=== PATIENT | male | born 1965 | race African-American/Black ===

== ENCOUNTER 2016-05-19 08:35 | Emergency (ER) | payer MEDICAID ==
[~2016-05-19] VITALS: Ht 185.4 cm; Wt 133.0 kg
[~2016-05-19 08:35] MED LIST: AMLO5TAB88 PO; ASPI-1035 PO; FURO40TA5 PO; Tramadol Hcl PO
[2016-05-19] MEDS ORDERED: MORPHINE SULFATE 10 MG/ML CPJ IM ONE (09:30)
[2016-05-19] MEDS ORDERED: ONDANSETRON 4MG ODT PO ONE (09:30)
[2016-05-19 09:52] LABS: CLARITY URINE CLEAR (CLEAR); COLOR URINE YELLOW (YELLOW); GLUCOSE URINE NEGATIVE (NEGATIVE); KETONES URINE NEGATIVE (NEGATIVE); LEUKOCYTE ESTERASE URINE NEGATIVE (NEGATIVE); NITRITE URINE NEGATIVE (NEGATIVE); OCCULT BLOOD URINE NEGATIVE (NEGATIVE); PROTEIN URINE NEGATIVE (NEGATIVE); SPECIFIC GRAVITY URINE 1.009 (1.005-1.030)
[2016-05-19 10:04] LABS: BASOPHILS % 1.1 % (0.0-2.0); EOSINOPHILS % 2.7 % (0.0-5.0); HEMATOCRIT. 42.6 % (42.0-52.0); HEMOGLOBIN. 13.2 g/dL (14.0-18.0); LYMPHOCYTES % 9.9 % (20.0-50.0); MEAN CORPUSCULAR HGB CONC 31.1 g/dL (31.0-37.0); MEAN CORPUSCULAR VOLUME 83.5 fL (80.0-94.0); MEAN PLATELET VOLUME 7.9 fl (7.4-10.4); MONOCYTES % 11.1 % (2.0-8.0); NEUTROPHILS % 75.2 % (40.0-76.0); PLATELET 283 x1000/uL (130-400); RED CELL DISTRIBUTION WIDTH 20.9 % (11.6-14.6); WHITE BLOOD COUNT 11.3 x1000/uL (4.5-11.0)
[2016-05-19 10:10] LABS: CHLORIDE 101 mEq/L (98-107); INDEX HEMOLYSI 1 (1-3); INDEX ICTERIC 1 (1-4); INDEX LIPEMIC 1 (1-3)
[2016-05-19 10:12] LABS: INR 1.3; PROTHROMBIN TIME 13.4 sec
[2016-05-19 10:18] LABS: ALANINE AMINOTRANSFERASE 37 IU/L (13-61); ALBUMIN 2.9 g/dL (3.4-5.0); ANION GAP 15; CALCIUM 8.6 mg/dL (8.5-10.1); CARBON DIOXIDE 25 mEq/L (21-32); LIPASE 267 IU/L (73-393); UREA NITROGEN BLOOD 39 mg/dL (7-21); eGFR 48 mL/min (>60)
[2016-05-19 10:44] LABS: AMYLASE 83 IU/L (25-115); INDEX HEMOLYSI 2 (1-3)
[2016-05-19] MEDS ORDERED: KETOROLAC 30MG/ML VIAL IM ONE (11:30)
[2016-05-19 12:29] VITALS: BP 117/74
[2016-05-23] MEDS ORDERED: AMIO100T4 PO (07:19)
[2016-05-23] MEDS ORDERED: ATOR20TA65 PO (07:20)
[2016-05-23] MEDS ORDERED: LISI-186 PO (07:20)
== END 2016-05-19 13:18 | disposition home or self-care (01) ==
LOC: ER 08:58
DX: R10.11 Right upper quadrant pain (principal); I50.9 Heart failure, unspecified; J44.9 Chronic obstructive pulmonary disease, unspecified; I10 Essential (primary) hypertension
CPT/HCPCS: 36415; 76705; 80053; 81003; 82150; 83690; 85025; 85610; 93005; 96372; 99285; J1885; J2270; Q0162

== ENCOUNTER 2016-06-03 23:24 | Emergency (ER) | payer MEDICAID ==
[~2016-06-03] VITALS: Ht 188 cm; Wt 127.0 kg
[~2016-06-03 23:24] MED LIST changes: +AMIO100T4 PO; +ATOR20TA65 PO; +LISI-186 PO
[2016-06-04] MEDS ORDERED: KETOROLAC 30MG/ML VIAL IV STA (01:32)
[2016-06-04 01:59] LABS: BASOPHILS % 1.4 % (0.0-2.0); EOSINOPHILS % 2.6 % (0.0-5.0); HEMATOCRIT. 42.5 % (42.0-52.0); HEMOGLOBIN. 13.5 g/dL (14.0-18.0); LYMPHOCYTES % 8.8 % (20.0-50.0); MEAN CORPUSCULAR HEMOGLOBIN 25.7 pg (28.0-32.0); MEAN CORPUSCULAR HGB CONC 31.9 g/dL (31.0-37.0); MEAN CORPUSCULAR VOLUME 80.6 fL (80.0-94.0); MEAN PLATELET VOLUME 7.5 fl (7.4-10.4); MONOCYTES % 12.7 % (2.0-8.0); NEUTROPHILS % 74.5 % (40.0-76.0); PLATELET 251 x1000/uL (130-400); RED BLOOD CELL COUNT 5.27 mill/uL (4.7-6.1); RED CELL DISTRIBUTION WIDTH 20.3 % (11.6-14.6); WHITE BLOOD COUNT 10.8 x1000/uL (4.5-11.0)
[2016-06-04 02:15] LABS: ALANINE AMINOTRANSFERASE 32 IU/L (13-61); ALBUMIN 3.2 g/dL (3.4-5.0); ANION GAP 13; CALCIUM 8.5 mg/dL (8.5-10.1); CARBON DIOXIDE 25 mEq/L (21-32); CHLORIDE 102 mEq/L (98-107); INDEX HEMOLYSI 1 (1-3); INDEX ICTERIC 1 (1-4); INDEX LIPEMIC 1 (1-3); NT PRO B-TYPE NATRIURETIC PEP 5113 pg/mL (5-125); TROPONIN I 0.14 ng/mL (0.00-0.04); UREA NITROGEN BLOOD 28 mg/dL (7-21); eGFR 45 mL/min (>60)
[2016-06-04] MEDS ORDERED: MORPHINE SULFATE 4 MG/ML CPJ (NOT FOR IM USE) IV ONE (02:30)
[2016-06-04 02:41] VITALS: BP 158/85
== END 2016-06-04 05:46 | disposition home or self-care (01) ==
LOC: ER 23:25
DX: M54.5 Low back pain (principal); G89.29 Other chronic pain; R07.9 Chest pain, unspecified; R06.02 Shortness of breath; J44.9 Chronic obstructive pulmonary disease, unspecified; I10 Essential (primary) hypertension; I50.9 Heart failure, unspecified; F17.200 Nicotine dependence, unspecified, uncomplicated; Z79.82 Long term (current) use of aspirin
CPT/HCPCS: 36415; 71010; 80053; 83880; 84484; 85025; 93005; 96374; 96375; 99285; J1885; J2270; Z7610

== ENCOUNTER 2016-08-08 03:27 | Inpatient (IN) | payer MEDICAID ==
[~2016-08-08] VITALS: Ht 180.3 cm; Wt 124.3 kg
[~2016-08-08 03:27] MED LIST changes: -ASPI-1035 PO; +ASPI-1159 PO
[2016-08-08] MEDS ORDERED: ALBUTEROL (0.083%) 2.5MG/3ML NEB HHN STA (04:24)
[2016-08-08] MEDS ORDERED: NITROGLYCERIN OINT 1GM/INCH UDPKT TD ONE (04:30)
[2016-08-08] MEDS ORDERED: FUROSEMIDE 40MG/4ML VIAL IV ONE (04:30)
[2016-08-08 04:52] LABS: BASOPHILS % 1.5 % (0.0-2.0); EOSINOPHILS % 1.9 % (0.0-5.0); HEMATOCRIT. 42.2 % (42.0-52.0); HEMOGLOBIN. 13.6 g/dL (14.0-18.0); LYMPHOCYTES % 9.1 % (20.0-50.0); MEAN CORPUSCULAR HEMOGLOBIN 25.4 pg (28.0-32.0); MEAN CORPUSCULAR VOLUME 78.8 fL (80.0-94.0); NEUTROPHILS % 75.5 % (40.0-76.0); PLATELET 286 x1000/uL (130-400); RED BLOOD CELL COUNT 5.35 mill/uL (4.7-6.1); RED CELL DISTRIBUTION WIDTH 19.4 % (11.6-14.6)
[2016-08-08 05:04] LABS: CARBON DIOXIDE 24 mEq/L (21-32); CHLORIDE 99 mEq/L (98-107); TROPONIN I 0.15 ng/mL (0.00-0.04)
[2016-08-08] MEDS ORDERED: LORAZEPAM 2MG/ML CPJ IV ONE (05:15)
[2016-08-08] MEDS ORDERED: PROPOFOL 10MG/ML 100ML 100 ML IV ONE (07:00)
[2016-08-08] MEDS ORDERED: SUCCINYLCHOLINE CHLORIDE 200MG/10ML VIAL IV ONE ×2 (07:00→10:03)
[2016-08-08 07:37] LABS: BG BASE EXCESS -3.8 mmol/L (-2.0-2.0); BG CARBOXYHEMOGLOBIN 1.5 % (0.5-1.5); BG DEOXYHEMOGLOBIN 3.1 % (0.0-5.0); BG FRACTION INSPIRED OXYGEN 75; BG HCO3 ACT 23.6 mmol/L (22.0-26.0); BG METHEMOGLOBIN 0.7 % (0.0-1.5); BG OXYGEN SATURATION 96.8 % (92.0-98.5); BG OXYHEMOGLOBIN 94.7 % (94.0-97.0); BG PCO2 52.3 mmHg (35.0-45.0); BG PH 7.273 (7.350-7.450); BG PO2 118.8 mmHg (75.0-100.0); BG SAMPLE SITE RIGHT BRACHIAL; BG TIDAL VOLUME(mL) 550 mL; BG TOTAL HEMOGLOBIN 14.8 g/dL (12.0-18.0); BG VENT MODE VENT - A/C; BG VENT RATE 12 set
[2016-08-08] MEDS: LEVOFLOXACIN 500MG PREMIX 100 ML IV ONE ×2 (08:07→08:30)
[2016-08-08] MEDS: PANTOPRAZOLE SODIUM 40 MG/VIAL IV SCH (09:47)
[2016-08-08] MEDS: DIPHENHYDRAMINE 50MG/ML VIAL IV PRN ×2 (09:48→15:43)
[2016-08-08] MEDS: PROPOFOL 10MG/ML 100ML 100 ML IV PRN ×3 (09:49→20:42)
[2016-08-08] MEDS ORDERED: IPRATROPIUM/ALBUTEROL 0.5-3(2.5)MG/3ML NEB HHN PRN (10:00)
[2016-08-08] MEDS ORDERED: ETOMIDATE 2MG/ML 10ML VIAL IV ONE (10:03)
[2016-08-08] MEDS ORDERED: STERILE WATER FOR INJECTION 10ML VIAL ONE (10:03)
[2016-08-08] MEDS ORDERED: VECURONIUM BROMIDE 10 MG/VIAL IV ONE (10:03)
[2016-08-08] MEDS: LORAZEPAM 2MG/ML CPJ IV PRN ×2 (10:12→15:44)
[2016-08-08] MEDS ORDERED: MORPHINE SULFATE 2 MG/ML CPJ (NOT FOR IM USE) IV PRN (10:30)
[2016-08-08] MEDS: IPRATROPIUM/ALBUTEROL 0.5-3(2.5)MG/3ML NEB HHN SCH ×2 (10:56→19:50)
[2016-08-08 11:42] LABS: CLARITY URINE CLEAR (CLEAR); COLOR URINE DARK YELLOW (YELLOW); KETONES URINE NEGATIVE (NEGATIVE); LEUKOCYTE ESTERASE URINE NEGATIVE (NEGATIVE); NITRITE URINE NEGATIVE (NEGATIVE); OCCULT BLOOD URINE 2+ (NEGATIVE); PROTEIN URINE TRACE (NEGATIVE); SPECIFIC GRAVITY URINE 1.015 (1.005-1.030)
[2016-08-08] MEDS ORDERED: VANCOMYCIN 2,000 MG in DEXT 5% WATER 500 ML IV NR (12:00)
[2016-08-08 12:02] LABS: *AMPHETAMINES SCREEN URINE NEGATIVE (NEGATIVE); *BARBITURATES SCREEN URINE NEGATIVE (NEGATIVE); *BENZODIAZEPINES SCREEN URINE NEGATIVE (NEGATIVE); *COCAINE SCREEN URINE PRESUMTIVE POSITIVE (NEGATIVE); CANNABINOID URINE SCREEN PRESUMTIVE POSITIVE (NEGATIVE); METHADONE URINE SCREEN NEGATIVE (NEGATIVE); OPIATES URINE SCREEN NEGATIVE (NEGATIVE); PHENCYCLIDINE URINE SCREEN NEGATIVE (NEGATIVE)
[2016-08-08] MEDS: ENOXAPARIN 30MG/0.3ML SYR SUBCUT SCH ×2 (12:35→21:08)
[2016-08-08] MEDS: PIPERACILLIN/TAZ 3.375G PREMIX 50 ML IV SCH ×2 (13:16→21:53)
[2016-08-09] MEDS: PROPOFOL 10MG/ML 100ML 100 ML IV PRN ×7 (00:27→21:39)
[2016-08-09] MEDS: IPRATROPIUM/ALBUTEROL 0.5-3(2.5)MG/3ML NEB HHN SCH ×4 (01:45→20:12)
[2016-08-09 05:25] LABS: HEMATOCRIT. 40.4 % (42.0-52.0); HEMOGLOBIN. 12.9 g/dL (14.0-18.0); MEAN CORPUSCULAR VOLUME 78.5 fL (80.0-94.0); MEAN PLATELET VOLUME 7.9 fl (7.4-10.4); PLATELET 274 x1000/uL (130-400); RED BLOOD CELL COUNT 5.15 mill/uL (4.7-6.1); RED CELL DISTRIBUTION WIDTH 19.3 % (11.6-14.6)
[2016-08-09 05:30] LABS: INR 1.4; PARTIAL THROMBOPLASTIN TIME 30.5 sec (24.0-34.0); PROTHROMBIN TIME 14.6 sec
[2016-08-09] MEDS: PIPERACILLIN/TAZ 3.375G PREMIX 50 ML IV SCH ×3 (06:50→21:00)
[2016-08-09 07:23] LABS: BG BASE EXCESS 1.4 mmol/L (-2.0-2.0); BG CARBOXYHEMOGLOBIN 0.6 % (0.5-1.5); BG DEOXYHEMOGLOBIN 1.6 % (0.0-5.0); BG FRACTION INSPIRED OXYGEN 50; BG HCO3 ACT 25.1 mmol/L (22.0-26.0); BG METHEMOGLOBIN 0.3 % (0.0-1.5); BG OXYGEN SATURATION 98.4 % (92.0-98.5); BG OXYHEMOGLOBIN 97.5 % (94.0-97.0); BG PCO2 36.9 mmHg (35.0-45.0); BG PH 7.451 (7.350-7.450); BG PO2 137.4 mmHg (75.0-100.0); BG SAMPLE SITE RIGHT RADIAL; BG TIDAL VOLUME(mL) 550 mL; BG VENT MODE VENT - A/C; BG VENT RATE 14 set
[2016-08-09 07:44] LABS: PLATELET ESTIMATE NORMAL
[2016-08-09] MEDS: FUROSEMIDE 40MG/4ML VIAL IVP SCH (08:44)
[2016-08-09] MEDS: PANTOPRAZOLE SODIUM 40 MG/VIAL IV SCH (08:44)
[2016-08-09] MEDS: ENOXAPARIN 30MG/0.3ML SYR SUBCUT SCH ×2 (08:45→21:00)
[2016-08-09] MEDS ORDERED: VANCOMYCIN 1250MG in DEXTROSE 5% WATER 250ML IV SCH (10:00)
[2016-08-09] MEDS: CHLORDIAZEPOXIDE 25MG CAPSULE NG SCH ×2 (12:55→21:00)
[2016-08-09] MEDS: BUDESONIDE 0.5MG/2ML NEB HHN SCH ×2 (15:18→20:12)
[2016-08-09 15:42] LABS: CREATINE KINASE MB FRACTION 1.9 ng/mL (0.5-3.6); TROPONIN I 0.09 ng/mL (0.00-0.04)
[2016-08-09 15:48] LABS: T4 FREE 0.9 ng/dL (0.76-1.46)
[2016-08-09 23:38] LABS: CREATINE KINASE MB FRACTION 1.6 ng/mL (0.5-3.6); TROPONIN I 0.08 ng/mL (0.00-0.04)
[2016-08-09] MEDS: VANCOMYCIN 1250MG in DEXTROSE 5% WATER 250ML IV SCH (23:45)
[2016-08-10] MEDS: PROPOFOL 10MG/ML 100ML 100 ML IV PRN ×5 (00:32→21:08)
[2016-08-10] MEDS: IPRATROPIUM/ALBUTEROL 0.5-3(2.5)MG/3ML NEB HHN SCH ×4 (02:29→19:57)
[2016-08-10 05:27] LABS: HEMATOCRIT. 41.6 % (42.0-52.0); MEAN CORPUSCULAR HEMOGLOBIN 24.8 pg (28.0-32.0); MEAN PLATELET VOLUME 8.7 fl (7.4-10.4); PLATELET 226 x1000/uL (130-400); RED BLOOD CELL COUNT 5.27 mill/uL (4.7-6.1)
[2016-08-10] MEDS: CHLORDIAZEPOXIDE 25MG CAPSULE NG SCH ×3 (05:30→21:10)
[2016-08-10] MEDS: PIPERACILLIN/TAZ 3.375G PREMIX 50 ML IV SCH ×3 (05:31→17:59)
[2016-08-10 05:48] LABS: CREATINE KINASE MB FRACTION 1.5 ng/mL (0.5-3.6); TROPONIN I 0.08 ng/mL (0.00-0.04)
[2016-08-10 07:12] LABS: PLATELET ESTIMATE NORMAL
[2016-08-10] MEDS: BUDESONIDE 0.5MG/2ML NEB HHN SCH ×3 (08:37→19:57)
[2016-08-10] MEDS: PANTOPRAZOLE SODIUM 40 MG/VIAL IV SCH (09:56)
[2016-08-10] MEDS: RISPERIDONE 1MG TABLET PO SCH ×2 (09:56→21:10)
[2016-08-10] MEDS: ENOXAPARIN 30MG/0.3ML SYR SUBCUT SCH ×2 (09:56→21:13)
[2016-08-10] MEDS: FUROSEMIDE 40MG/4ML VIAL IVP SCH (09:56)
[2016-08-10] MEDS: VANCOMYCIN 1250MG in DEXTROSE 5% WATER 250ML IV SCH (09:57)
[2016-08-10] MEDS: LORAZEPAM 2MG/ML CPJ IV PRN (10:11)
[2016-08-10 12:44] LABS: BG CARBOXYHEMOGLOBIN 0.9 % (0.5-1.5); BG DEOXYHEMOGLOBIN 2.6 % (0.0-5.0); BG FRACTION INSPIRED OXYGEN 40; BG HCO3 ACT 28.2 mmol/L (22.0-26.0); BG METHEMOGLOBIN 0.3 % (0.0-1.5); BG OXYGEN SATURATION 97.4 % (92.0-98.5); BG OXYHEMOGLOBIN 96.2 % (94.0-97.0); BG PO2 97.7 mmHg (75.0-100.0); BG SAMPLE SITE LEFT RADIAL; BG TIDAL VOLUME(mL) 550 mL; BG TOTAL HEMOGLOBIN 13.9 g/dL (12.0-18.0); BG VENT MODE VENT - A/C; BG VENT RATE 14 set
[2016-08-11] MEDS: PIPERACILLIN/TAZ 3.375G PREMIX 50 ML IV SCH ×4 (00:16→18:36)
[2016-08-11] MEDS: PROPOFOL 10MG/ML 100ML 100 ML IV PRN ×4 (01:28→19:00)
[2016-08-11] MEDS: IPRATROPIUM/ALBUTEROL 0.5-3(2.5)MG/3ML NEB HHN SCH ×5 (02:24→20:09)
[2016-08-11] MEDS: VANCOMYCIN 1250MG in DEXTROSE 5% WATER 250ML IV SCH ×2 (04:34→21:51)
[2016-08-11] MEDS: CHLORDIAZEPOXIDE 25MG CAPSULE NG SCH ×3 (05:44→23:03)
[2016-08-11] MEDS: BUDESONIDE 0.5MG/2ML NEB HHN SCH ×2 (07:48→20:09)
[2016-08-11 08:30] LABS: BASOPHILS % 0.7 % (0.0-2.0); EOSINOPHILS % 0.9 % (0.0-5.0); HEMATOCRIT. 40.7 % (42.0-52.0); HEMOGLOBIN. 12.6 g/dL (14.0-18.0); LYMPHOCYTES % 7.1 % (20.0-50.0); MEAN CORPUSCULAR HEMOGLOBIN 24.4 pg (28.0-32.0); MEAN CORPUSCULAR VOLUME 78.9 fL (80.0-94.0); MEAN PLATELET VOLUME 8.3 fl (7.4-10.4); MONOCYTES % 9.1 % (2.0-8.0); NEUTROPHILS % 82.2 % (40.0-76.0); PLATELET 291 x1000/uL (130-400); RED BLOOD CELL COUNT 5.16 mill/uL (4.7-6.1); RED CELL DISTRIBUTION WIDTH 20.6 % (11.6-14.6)
[2016-08-11] MEDS: PANTOPRAZOLE SODIUM 40 MG/VIAL IV SCH (08:32)
[2016-08-11] MEDS: FUROSEMIDE 40MG/4ML VIAL IVP SCH (08:32)
[2016-08-11] MEDS: DIPHENHYDRAMINE 50MG/ML VIAL IV PRN ×2 (08:32→18:36)
[2016-08-11] MEDS: RISPERIDONE 1MG TABLET PO SCH (08:33)
[2016-08-11] MEDS: ENOXAPARIN 30MG/0.3ML SYR SUBCUT SCH ×2 (08:35→20:02)
[2016-08-11] MEDS: AMIODARONE HCL 200 MG TABLET PO SCH (10:22)
[2016-08-11] MEDS: QUETIAPINE FUMARATE 50MG TABLET PO SCH ×2 (13:06→20:00)
[2016-08-11] MEDS: LORAZEPAM 2MG/ML CPJ IV PRN (18:36)
[2016-08-12] MEDS: PIPERACILLIN/TAZ 3.375G PREMIX 50 ML IV SCH ×4 (00:25→17:01)
[2016-08-12] MEDS: IPRATROPIUM/ALBUTEROL 0.5-3(2.5)MG/3ML NEB HHN SCH ×4 (01:57→20:50)
[2016-08-12] MEDS: PROPOFOL 10MG/ML 100ML 100 ML IV PRN (02:14)
[2016-08-12] MEDS: CHLORDIAZEPOXIDE 25MG CAPSULE NG SCH ×3 (06:15→21:16)
[2016-08-12] MEDS ORDERED: LACTULOSE 20G/30ML UDC PO NR (07:45)
[2016-08-12] MEDS ORDERED: LACTULOSE 20G/30ML UDC PO PRN (07:45)
[2016-08-12] MEDS ORDERED: LORAZEPAM 2MG/ML CPJ IV PRN (07:45)
[2016-08-12 08:05] LABS: PHOSPHORUS 4.1 mg/dL (2.5-4.9)
[2016-08-12] MEDS: BUDESONIDE 0.5MG/2ML NEB HHN SCH (08:15)
[2016-08-12] MEDS: FUROSEMIDE 40MG/4ML VIAL IVP SCH (08:16)
[2016-08-12] MEDS: PANTOPRAZOLE SODIUM 40 MG/VIAL IV SCH (08:23)
[2016-08-12] MEDS: ENOXAPARIN 30MG/0.3ML SYR SUBCUT SCH ×2 (08:23→21:16)
[2016-08-12] MEDS: QUETIAPINE FUMARATE 50MG TABLET PO SCH ×2 (08:23→21:16)
[2016-08-12] MEDS: AMIODARONE HCL 200 MG TABLET PO SCH (08:23)
[2016-08-12] MEDS: VANCOMYCIN 1250MG in DEXTROSE 5% WATER 250ML IV SCH (15:04)
[2016-08-12] MEDS ORDERED: PROPOFOL 10MG/ML 100ML 100 ML IV PRN (18:50)
[2016-08-13] MEDS: PIPERACILLIN/TAZ 3.375G PREMIX 50 ML IV SCH ×4 (00:29→17:27)
[2016-08-13] MEDS: IPRATROPIUM/ALBUTEROL 0.5-3(2.5)MG/3ML NEB HHN SCH ×4 (02:11→19:45)
[2016-08-13 05:19] LABS: HEMATOCRIT. 41.8 % (42.0-52.0); HEMOGLOBIN. 13.3 g/dL (14.0-18.0); MEAN CORPUSCULAR VOLUME 78.8 fL (80.0-94.0); MEAN PLATELET VOLUME 8.1 fl (7.4-10.4); PLATELET 303 x1000/uL (130-400); RED CELL DISTRIBUTION WIDTH 19.8 % (11.6-14.6)
[2016-08-13] MEDS: CHLORDIAZEPOXIDE 25MG CAPSULE NG SCH ×3 (06:08→21:12)
[2016-08-13 06:43] LABS: PLATELET ESTIMATE NORMAL
[2016-08-13] MEDS: PANTOPRAZOLE SODIUM 40 MG/VIAL IV SCH (09:19)
[2016-08-13] MEDS: FUROSEMIDE 40MG/4ML VIAL IVP SCH (09:19)
[2016-08-13] MEDS: ENOXAPARIN 30MG/0.3ML SYR SUBCUT SCH ×2 (09:19→21:13)
[2016-08-13] MEDS: QUETIAPINE FUMARATE 50MG TABLET PO SCH ×2 (09:19→21:12)
[2016-08-13] MEDS: AMIODARONE HCL 200 MG TABLET PO SCH (09:19)
[2016-08-13] MEDS: VANCOMYCIN 1250MG in DEXTROSE 5% WATER 250ML IV SCH (09:33)
[2016-08-13] MEDS: MIDAZOLAM HCL 50 MG in DEXTROSE 5% WATER 40 ML IV PRN ×2 (09:46→17:26)
[2016-08-13] MEDS: FENTANYL CITRATE/PF 500 MCG in SODIUM CHLORIDE 0.9% 40 ML IV PRN ×2 (09:51→22:34)
[2016-08-14] MEDS: PIPERACILLIN/TAZ 3.375G PREMIX 50 ML IV SCH ×4 (00:04→17:57)
[2016-08-14] MEDS: IPRATROPIUM/ALBUTEROL 0.5-3(2.5)MG/3ML NEB HHN SCH ×4 (01:53→19:48)
[2016-08-14] MEDS: VANCOMYCIN 1250MG in DEXTROSE 5% WATER 250ML IV SCH ×2 (03:40→21:40)
[2016-08-14] MEDS: MIDAZOLAM HCL 50 MG in DEXTROSE 5% WATER 40 ML IV PRN ×2 (03:40→23:07)
[2016-08-14 04:22] LABS: HEMATOCRIT. 41.3 % (42.0-52.0); HEMOGLOBIN. 12.7 g/dL (14.0-18.0); MEAN CORPUSCULAR HEMOGLOBIN 24.7 pg (28.0-32.0); MEAN CORPUSCULAR VOLUME 80.1 fL (80.0-94.0); MEAN PLATELET VOLUME 7.6 fl (7.4-10.4); PLATELET 275 x1000/uL (130-400); RED BLOOD CELL COUNT 5.15 mill/uL (4.7-6.1); RED CELL DISTRIBUTION WIDTH 20.2 % (11.6-14.6)
[2016-08-14 04:37] LABS: CARBON DIOXIDE 33 mEq/L (21-32); CHLORIDE 107 mEq/L (98-107)
[2016-08-14] MEDS: CHLORDIAZEPOXIDE 25MG CAPSULE NG SCH ×3 (05:25→21:40)
[2016-08-14 07:30] LABS: BG CARBOXYHEMOGLOBIN 2.2 % (0.5-1.5); BG DEOXYHEMOGLOBIN 1.8 % (0.0-5.0); BG FRACTION INSPIRED OXYGEN 40; BG HCO3 ACT 32.1 mmol/L (22.0-26.0); BG METHEMOGLOBIN 0.5 % (0.0-1.5); BG OXYGEN SATURATION 98.2 % (92.0-98.5); BG OXYHEMOGLOBIN 95.5 % (94.0-97.0); BG PH 7.452 (7.350-7.450); BG PO2 125.9 mmHg (75.0-100.0); BG SAMPLE SITE RIGHT RADIAL; BG TIDAL VOLUME(mL) 550 mL; BG TOTAL HEMOGLOBIN 14.4 g/dL (12.0-18.0); BG VENT MODE VENT - A/C; BG VENT RATE 12 set
[2016-08-14 07:30] LABS: PLATELET ESTIMATE NORMAL
[2016-08-14] MEDS: AMIODARONE HCL 200 MG TABLET PO SCH (08:35)
[2016-08-14] MEDS: QUETIAPINE FUMARATE 50MG TABLET PO SCH ×2 (08:36→21:40)
[2016-08-14] MEDS: ENOXAPARIN 30MG/0.3ML SYR SUBCUT SCH ×2 (08:36→21:39)
[2016-08-14] MEDS: PANTOPRAZOLE SODIUM 40 MG/VIAL IV SCH (08:36)
[2016-08-14] MEDS: FUROSEMIDE 40MG/4ML VIAL IVP SCH (08:36)
[2016-08-14] MEDS: ACETAMINOPHEN 325MG TABLET PO PRN (12:27)
[2016-08-14] MEDS: FENTANYL CITRATE/PF 500 MCG in SODIUM CHLORIDE 0.9% 40 ML IV PRN (14:16)
[2016-08-15] MEDS: PIPERACILLIN/TAZ 3.375G PREMIX 50 ML IV SCH ×4 (00:15→17:57)
[2016-08-15] MEDS: IPRATROPIUM/ALBUTEROL 0.5-3(2.5)MG/3ML NEB HHN SCH ×4 (01:53→21:04)
[2016-08-15] MEDS: FENTANYL CITRATE/PF 500 MCG in SODIUM CHLORIDE 0.9% 40 ML IV PRN ×2 (03:18→14:30)
[2016-08-15 04:55] LABS: BASOPHILS % 0.9 % (0.0-2.0); EOSINOPHILS % 5.2 % (0.0-5.0); HEMATOCRIT. 40.4 % (42.0-52.0); HEMOGLOBIN. 12.6 g/dL (14.0-18.0); LYMPHOCYTES % 7.6 % (20.0-50.0); MEAN CORPUSCULAR HEMOGLOBIN 24.9 pg (28.0-32.0); MEAN CORPUSCULAR VOLUME 79.5 fL (80.0-94.0); MEAN PLATELET VOLUME 7.7 fl (7.4-10.4); MONOCYTES % 10.1 % (2.0-8.0); NEUTROPHILS % 76.2 % (40.0-76.0); PLATELET 272 x1000/uL (130-400); RED BLOOD CELL COUNT 5.09 mill/uL (4.7-6.1); RED CELL DISTRIBUTION WIDTH 20.3 % (11.6-14.6)
[2016-08-15 05:24] LABS: CARBON DIOXIDE 33 mEq/L (21-32); CHLORIDE 108 mEq/L (98-107)
[2016-08-15] MEDS: CHLORDIAZEPOXIDE 25MG CAPSULE NG SCH ×3 (05:59→21:22)
[2016-08-15 07:23] LABS: BG BASE EXCESS 6.6 mmol/L (-2.0-2.0); BG CARBOXYHEMOGLOBIN 2.3 % (0.5-1.5); BG DEOXYHEMOGLOBIN 2.8 % (0.0-5.0); BG HCO3 ACT 31.9 mmol/L (22.0-26.0); BG METHEMOGLOBIN 0.5 % (0.0-1.5); BG OXYGEN SATURATION 97.1 % (92.0-98.5); BG OXYHEMOGLOBIN 94.4 % (94.0-97.0); BG PCO2 48.3 mmHg (35.0-45.0); BG PH 7.438 (7.350-7.450); BG PO2 98.8 mmHg (75.0-100.0); BG SAMPLE SITE RIGHT RADIAL; BG TIDAL VOLUME(mL) 550 mL; BG TOTAL HEMOGLOBIN 14.3 g/dL (12.0-18.0); BG VENT MODE VENT - A/C; BG VENT RATE 10 set
[2016-08-15] MEDS: QUETIAPINE FUMARATE 50MG TABLET PO SCH ×2 (08:20→21:22)
[2016-08-15] MEDS: AMIODARONE HCL 200 MG TABLET PO SCH (08:20)
[2016-08-15] MEDS: FUROSEMIDE 40MG/4ML VIAL IVP SCH (08:20)
[2016-08-15] MEDS: PANTOPRAZOLE SODIUM 40 MG/VIAL IV SCH (08:20)
[2016-08-15] MEDS: ENOXAPARIN 30MG/0.3ML SYR SUBCUT SCH ×2 (08:21→21:21)
[2016-08-15] MEDS: ACETAMINOPHEN 325MG TABLET PO PRN (12:03)
[2016-08-15] MEDS: LORAZEPAM 2MG/ML CPJ IV PRN (16:12)
[2016-08-15] MEDS ORDERED: VANCOMYCIN 1500MG in DEXTROSE 5% WATER 250ML IV SCH (21:00)
[2016-08-16] MEDS: FENTANYL CITRATE/PF 500 MCG in SODIUM CHLORIDE 0.9% 40 ML IV PRN ×3 (00:20→20:27)
[2016-08-16] MEDS: PIPERACILLIN/TAZ 3.375G PREMIX 50 ML IV SCH ×4 (00:21→22:43)
[2016-08-16] MEDS: IPRATROPIUM/ALBUTEROL 0.5-3(2.5)MG/3ML NEB HHN SCH ×4 (02:07→20:51)
[2016-08-16 05:06] LABS: BASOPHILS % 0.8 % (0.0-2.0); EOSINOPHILS % 5.3 % (0.0-5.0); HEMATOCRIT. 40.7 % (42.0-52.0); HEMOGLOBIN. 12.7 g/dL (14.0-18.0); LYMPHOCYTES % 9.7 % (20.0-50.0); MEAN CORPUSCULAR HEMOGLOBIN 25.1 pg (28.0-32.0); MEAN CORPUSCULAR VOLUME 80.3 fL (80.0-94.0); MEAN PLATELET VOLUME 7.9 fl (7.4-10.4); MONOCYTES % 10.1 % (2.0-8.0); NEUTROPHILS % 74.1 % (40.0-76.0); PLATELET 271 x1000/uL (130-400); RED BLOOD CELL COUNT 5.07 mill/uL (4.7-6.1); RED CELL DISTRIBUTION WIDTH 20.1 % (11.6-14.6)
[2016-08-16 05:16] LABS: CARBON DIOXIDE 34 mEq/L (21-32); CHLORIDE 108 mEq/L (98-107); PHOSPHORUS 3.9 mg/dL (2.5-4.9)
[2016-08-16] MEDS: CHLORDIAZEPOXIDE 25MG CAPSULE NG SCH ×3 (05:30→22:43)
[2016-08-16] MEDS: LORAZEPAM 2MG/ML CPJ IV PRN ×2 (07:31→16:33)
[2016-08-16 08:01] LABS: BG CARBOXYHEMOGLOBIN 1.8 % (0.5-1.5); BG DEOXYHEMOGLOBIN 1.8 % (0.0-5.0); BG FRACTION INSPIRED OXYGEN 40; BG HCO3 ACT 35.1 mmol/L (22.0-26.0); BG METHEMOGLOBIN 0.5 % (0.0-1.5); BG OXYGEN SATURATION 98.2 % (92.0-98.5); BG OXYHEMOGLOBIN 95.9 % (94.0-97.0); BG PCO2 48.8 mmHg (35.0-45.0); BG PH 7.475 (7.350-7.450); BG PO2 123.3 mmHg (75.0-100.0); BG SAMPLE SITE RIGHT RADIAL; BG TIDAL VOLUME(mL) 550 mL; BG TOTAL HEMOGLOBIN 14.1 g/dL (12.0-18.0); BG VENT MODE VENT - A/C; BG VENT RATE 10 set
[2016-08-16] MEDS: ACETAMINOPHEN 325MG TABLET PO PRN ×2 (08:15→16:33)
[2016-08-16] MEDS: AMIODARONE HCL 200 MG TABLET PO SCH (08:15)
[2016-08-16] MEDS: PANTOPRAZOLE SODIUM 40 MG/VIAL IV SCH (08:15)
[2016-08-16] MEDS: QUETIAPINE FUMARATE 50MG TABLET PO SCH ×2 (08:15→20:28)
[2016-08-16] MEDS: ENOXAPARIN 30MG/0.3ML SYR SUBCUT SCH ×2 (08:16→20:28)
[2016-08-16 15:13] LABS: BG BASE EXCESS 7.1 mmol/L (-2.0-2.0); BG CARBOXYHEMOGLOBIN 1.7 % (0.5-1.5); BG DEOXYHEMOGLOBIN 5.5 % (0.0-5.0); BG FRACTION INSPIRED OXYGEN 30; BG HCO3 ACT 33.2 mmol/L (22.0-26.0); BG METHEMOGLOBIN 0.4 % (0.0-1.5); BG OXYGEN SATURATION 94.4 % (92.0-98.5); BG OXYHEMOGLOBIN 92.4 % (94.0-97.0); BG PCO2 52.9 mmHg (35.0-45.0); BG PH 7.415 (7.350-7.450); BG PO2 77.6 mmHg (75.0-100.0); BG SAMPLE SITE RIGHT RADIAL; BG TIDAL VOLUME(mL) 550 mL; BG TOTAL HEMOGLOBIN 13.6 g/dL (12.0-18.0); BG VENT MODE VENT - A/C; BG VENT RATE 10 set
[2016-08-16] MEDS: VANCOMYCIN 1250MG in DEXTROSE 5% WATER 250ML IV SCH (20:28)
[2016-08-17] MEDS: IPRATROPIUM/ALBUTEROL 0.5-3(2.5)MG/3ML NEB HHN SCH ×5 (01:26→20:07)
[2016-08-17] MEDS: CHLORDIAZEPOXIDE 25MG CAPSULE NG SCH ×2 (05:16→21:39)
[2016-08-17] MEDS: PIPERACILLIN/TAZ 3.375G PREMIX 50 ML IV SCH ×3 (05:16→22:56)
[2016-08-17] MEDS: FENTANYL CITRATE/PF 500 MCG in SODIUM CHLORIDE 0.9% 40 ML IV PRN ×2 (05:21→16:27)
[2016-08-17 05:35] LABS: BASOPHILS % 1.2 % (0.0-2.0); EOSINOPHILS % 5.6 % (0.0-5.0); HEMATOCRIT. 39.8 % (42.0-52.0); HEMOGLOBIN. 12.6 g/dL (14.0-18.0); LYMPHOCYTES % 11.5 % (20.0-50.0); MEAN CORPUSCULAR HEMOGLOBIN 25.6 pg (28.0-32.0); MEAN CORPUSCULAR VOLUME 80.9 fL (80.0-94.0); MEAN PLATELET VOLUME 8.4 fl (7.4-10.4); MONOCYTES % 10.3 % (2.0-8.0); NEUTROPHILS % 71.4 % (40.0-76.0); PLATELET 250 x1000/uL (130-400); RED BLOOD CELL COUNT 4.92 mill/uL (4.7-6.1); RED CELL DISTRIBUTION WIDTH 20.2 % (11.6-14.6)
[2016-08-17 05:53] LABS: CARBON DIOXIDE 32 mEq/L (21-32); CHLORIDE 109 mEq/L (98-107)
[2016-08-17 07:49] LABS: BG BASE EXCESS 2.9 mmol/L (-2.0-2.0); BG CARBOXYHEMOGLOBIN 1.8 % (0.5-1.5); BG DEOXYHEMOGLOBIN 4.5 % (0.0-5.0); BG FRACTION INSPIRED OXYGEN 30; BG HCO3 ACT 27.6 mmol/L (22.0-26.0); BG METHEMOGLOBIN 0.3 % (0.0-1.5); BG OXYGEN SATURATION 95.4 % (92.0-98.5); BG OXYHEMOGLOBIN 93.4 % (94.0-97.0); BG PCO2 42.8 mmHg (35.0-45.0); BG PH 7.428 (7.350-7.450); BG SAMPLE SITE RIGHT RADIAL; BG TIDAL VOLUME(mL) 550 mL; BG TOTAL HEMOGLOBIN 13.9 g/dL (12.0-18.0); BG VENT MODE VENT - A/C; BG VENT RATE 10 set
[2016-08-17] MEDS: ACETYLCYSTEINE 100MG/ML 10% VIAL 4ML INH SCH (09:10)
[2016-08-17] MEDS: AMIODARONE HCL 200 MG TABLET PO SCH (09:18)
[2016-08-17] MEDS: QUETIAPINE FUMARATE 50MG TABLET PO SCH ×2 (09:18→21:38)
[2016-08-17] MEDS: PANTOPRAZOLE SODIUM 40 MG/VIAL IV SCH (09:19)
[2016-08-17] MEDS: ENOXAPARIN 30MG/0.3ML SYR SUBCUT SCH ×2 (09:19→21:38)
[2016-08-17] MEDS ORDERED: ACETAMINOPHEN 650MG/20.3ML UDC PO PRN (16:30)
[2016-08-17] MEDS: VANCOMYCIN 1250MG in DEXTROSE 5% WATER 250ML IV SCH (21:38)
[2016-08-18] MEDS: ACETYLCYSTEINE 100MG/ML 10% VIAL 4ML INH SCH ×6 (00:17→20:27)
[2016-08-18] MEDS: IPRATROPIUM/ALBUTEROL 0.5-3(2.5)MG/3ML NEB HHN SCH ×6 (00:18→20:27)
[2016-08-18] MEDS: FENTANYL CITRATE/PF 500 MCG in SODIUM CHLORIDE 0.9% 40 ML IV PRN ×2 (02:16→15:16)
[2016-08-18] MEDS: PIPERACILLIN/TAZ 3.375G PREMIX 50 ML IV SCH ×3 (05:37→22:24)
[2016-08-18 07:30] LABS: BG BASE EXCESS 4.1 mmol/L (-2.0-2.0); BG CARBOXYHEMOGLOBIN 1.2 % (0.5-1.5); BG DEOXYHEMOGLOBIN 15.8 % (0.0-5.0); BG FRACTION INSPIRED OXYGEN 30; BG HCO3 ACT 28.7 mmol/L (22.0-26.0); BG METHEMOGLOBIN 0.1 % (0.0-1.5); BG OXYHEMOGLOBIN 82.9 % (94.0-97.0); BG PCO2 43.1 mmHg (35.0-45.0); BG PH 7.442 (7.350-7.450); BG PO2 51.5 mmHg (75.0-100.0); BG SAMPLE SITE RIGHT RADIAL; BG TIDAL VOLUME(mL) 550 mL; BG TOTAL HEMOGLOBIN 13.9 g/dL (12.0-18.0); BG VENT MODE VENT - A/C; BG VENT RATE 10 set
[2016-08-18] MEDS: QUETIAPINE FUMARATE 50MG TABLET PO SCH ×2 (09:11→20:09)
[2016-08-18] MEDS: CHLORDIAZEPOXIDE 25MG CAPSULE NG SCH ×2 (09:11→20:09)
[2016-08-18] MEDS: PANTOPRAZOLE SODIUM 40 MG/VIAL IV SCH (09:11)
[2016-08-18] MEDS: ENOXAPARIN 30MG/0.3ML SYR SUBCUT SCH (09:11)
[2016-08-18] MEDS: AMIODARONE HCL 200 MG TABLET PO SCH (09:11)
[2016-08-18] MEDS ORDERED: MORPHINE SULFATE 2 MG/ML CPJ (NOT FOR IM USE) IV PRN (09:45)
[2016-08-18] MEDS: MORPHINE SULFATE 2 MG/ML CPJ (NOT FOR IM USE) IV PRN ×2 (11:15→16:33)
[2016-08-18 12:18] LABS: BG BASE EXCESS 5.4 mmol/L (-2.0-2.0); BG CARBOXYHEMOGLOBIN 0.6 % (0.5-1.5); BG HCO3 ACT 29.6 mmol/L (22.0-26.0); BG METHEMOGLOBIN 0.3 % (0.0-1.5); BG OXYGEN SATURATION 93.9 % (92.0-98.5); BG OXYHEMOGLOBIN 93.1 % (94.0-97.0); BG PCO2 41.9 mmHg (35.0-45.0); BG PH 7.467 (7.350-7.450); BG PO2 73.1 mmHg (75.0-100.0); BG SAMPLE SITE RIGHT BRACHIAL; BG TIDAL VOLUME(mL) 550 mL; BG TOTAL HEMOGLOBIN 13.5 g/dL (12.0-18.0); BG VENT MODE VENT - A/C; BG VENT RATE 10 set
[2016-08-18 12:55] LABS: HEMATOCRIT. 38.2 % (42.0-52.0); HEMOGLOBIN. 11.9 g/dL (14.0-18.0); MEAN CORPUSCULAR HEMOGLOBIN 25.2 pg (28.0-32.0); MEAN CORPUSCULAR VOLUME 80.8 fL (80.0-94.0); MEAN PLATELET VOLUME 8.4 fl (7.4-10.4); PLATELET 237 x1000/uL (130-400); RED BLOOD CELL COUNT 4.73 mill/uL (4.7-6.1); RED CELL DISTRIBUTION WIDTH 20.7 % (11.6-14.6)
[2016-08-18 13:21] LABS: PLATELET ESTIMATE NORMAL
[2016-08-18] MEDS: ACETAMINOPHEN 650MG/20.3ML UDC NG PRN (15:14)
[2016-08-18] MEDS: VANCOMYCIN 1250MG in DEXTROSE 5% WATER 250ML IV SCH (20:09)
[2016-08-19] MEDS: IPRATROPIUM/ALBUTEROL 0.5-3(2.5)MG/3ML NEB HHN SCH ×6 (00:33→19:53)
[2016-08-19] MEDS: ACETYLCYSTEINE 100MG/ML 10% VIAL 4ML INH SCH ×6 (00:33→19:53)
[2016-08-19 05:59] LABS: HEMATOCRIT. 38.9 % (42.0-52.0); HEMOGLOBIN. 11.9 g/dL (14.0-18.0); MEAN CORPUSCULAR HEMOGLOBIN 25.1 pg (28.0-32.0); MEAN CORPUSCULAR VOLUME 81.8 fL (80.0-94.0); MEAN PLATELET VOLUME 9.1 fl (7.4-10.4); PLATELET 233 x1000/uL (130-400); RED BLOOD CELL COUNT 4.75 mill/uL (4.7-6.1); RED CELL DISTRIBUTION WIDTH 20.6 % (11.6-14.6)
[2016-08-19 06:43] LABS: PHOSPHORUS 3.8 mg/dL (2.5-4.9)
[2016-08-19] MEDS: AMIODARONE HCL 200 MG TABLET PO SCH (08:34)
[2016-08-19] MEDS: QUETIAPINE FUMARATE 50MG TABLET PO SCH ×2 (08:35→20:39)
[2016-08-19] MEDS: CHLORDIAZEPOXIDE 25MG CAPSULE NG SCH (08:35)
[2016-08-19] MEDS: PANTOPRAZOLE SODIUM 40 MG/VIAL IV SCH (09:00)
[2016-08-19] MEDS ORDERED: MULTIVITAMINS,THER W-MINERALS TABLET PO SCH (10:30)
[2016-08-19] MEDS ORDERED: DEXTROSE 5% WATER 1,000 ML IV SCH (10:30)
[2016-08-19] MEDS ORDERED: THIAMINE HCL 100MG TABLET PO SCH (10:30)
[2016-08-19] MEDS ORDERED: FOLIC ACID 1MG TABLET PO SCH (10:30)
[2016-08-19 10:56] LABS: ATYPICAL LYMPHOCYTES 1; NUCLEATED RED BLOOD CELLS 1 /100 WBC
[2016-08-19 10:59] LABS: PLATELET ESTIMATE NORMAL
[2016-08-19] MEDS: PIPERACILLIN/TAZ 3.375G PREMIX 50 ML IV SCH ×2 (11:07→20:54)
[2016-08-19] MEDS: ENOXAPARIN 30MG/0.3ML SYR SUBCUT SCH ×2 (11:07→20:39)
[2016-08-19 11:29] LABS: AMMONIA 52 uMol/L (<32)
[2016-08-19 11:31] LABS: T4 FREE 0.74 ng/dL (0.76-1.46)
[2016-08-19] MEDS ORDERED: FENTANYL CITRATE/PF 50MCG/ML 2ML VIAL ONE (11:54)
[2016-08-19 11:57] LABS: VITAMIN B12 SERUM 691 pg/mL (211-911)
[2016-08-19 12:05] LABS: FOLIC ACID (FOLATE) SERUM > 20.00 ng/mL (>5.38)
[2016-08-19] MEDS ORDERED: FOLIC ACID 1 MG,THIAMINE 100 MG,MVI-12 10 ML in DEXTROSE 5% WATER 1000 ML IV PRN ×4 (13:15)
[2016-08-19] MEDS: ACETAMINOPHEN 650MG/20.3ML UDC NG PRN (15:24)
[2016-08-19] MEDS: LORAZEPAM 2MG/ML CPJ IV PRN (20:40)
[2016-08-19] MEDS ORDERED: CHLORDIAZEPOXIDE 25MG CAPSULE NG SCH (21:00)
[2016-08-19] MEDS: FENTANYL CITRATE/PF 500 MCG in SODIUM CHLORIDE 0.9% 40 ML IV PRN (22:22)
[2016-08-20] MEDS: ACETYLCYSTEINE 100MG/ML 10% VIAL 4ML INH SCH ×6 (00:03→20:23)
[2016-08-20] MEDS: IPRATROPIUM/ALBUTEROL 0.5-3(2.5)MG/3ML NEB HHN SCH ×6 (00:03→20:23)
[2016-08-20 05:27] LABS: EOSINOPHILS % 3.8 % (0.0-5.0); HEMATOCRIT. 38.9 % (42.0-52.0); HEMOGLOBIN. 12.2 g/dL (14.0-18.0); LYMPHOCYTES % 8.4 % (20.0-50.0); MEAN CORPUSCULAR HEMOGLOBIN 25.7 pg (28.0-32.0); MEAN PLATELET VOLUME 9.1 fl (7.4-10.4); MONOCYTES % 6.2 % (2.0-8.0); NEUTROPHILS % 80.6 % (40.0-76.0); PLATELET 228 x1000/uL (130-400); RED BLOOD CELL COUNT 4.74 mill/uL (4.7-6.1); RED CELL DISTRIBUTION WIDTH 21.3 % (11.6-14.6)
[2016-08-20 05:42] LABS: CARBON DIOXIDE 30 mEq/L (21-32); CHLORIDE 109 mEq/L (98-107)
[2016-08-20] MEDS: PIPERACILLIN/TAZ 3.375G PREMIX 50 ML IV SCH ×2 (05:47→13:23)
[2016-08-20] MEDS: LORAZEPAM 2MG/ML CPJ IV PRN (06:09)
[2016-08-20] MEDS: MORPHINE SULFATE 2 MG/ML CPJ (NOT FOR IM USE) IV PRN (06:11)
[2016-08-20] MEDS ORDERED: LORAZEPAM 2MG/ML CPJ IV NR (08:30)
[2016-08-20] MEDS: MIDAZOLAM HCL 50 MG in DEXTROSE 5% WATER 40 ML IV PRN ×2 (08:39→16:52)
[2016-08-20 09:00] LABS: INR 1.2; PARTIAL THROMBOPLASTIN TIME 27.5 sec (24.0-34.0); PROTHROMBIN TIME 12.7 sec
[2016-08-20] MEDS: AMIODARONE HCL 200 MG TABLET PO SCH (09:00)
[2016-08-20] MEDS: ENOXAPARIN 30MG/0.3ML SYR SUBCUT SCH (09:00)
[2016-08-20] MEDS: QUETIAPINE FUMARATE 50MG TABLET PO SCH ×2 (09:00→21:57)
[2016-08-20] MEDS: FENTANYL CITRATE/PF 500 MCG in SODIUM CHLORIDE 0.9% 40 ML IV PRN ×3 (10:21→23:01)
[2016-08-20] MEDS: PANTOPRAZOLE SODIUM 40 MG/VIAL IV SCH (10:27)
[2016-08-20] MEDS ORDERED: KCL 10MEQ/50ML PREMIX 50 ML IV NR (10:30)
[2016-08-20] MEDS ORDERED: MIDAZOLAM HCL 5 MG/5 ML VIAL ONE (14:49)
[2016-08-20] MEDS ORDERED: FENTANYL CITRATE/PF 50MCG/ML 2ML VIAL ONE (14:52)
[2016-08-20] MEDS ORDERED: ROCURONIUM BROMIDE 10MG/ML VIAL 5ML IV ONE (14:54)
[2016-08-20] MEDS ORDERED: ONDANSETRON HCL 4MG/2ML VIAL ONE (15:12)
[2016-08-20] MEDS: COLISTIMETHATE SODIUM 150MG/VIAL INH SCH (20:22)
[2016-08-20] MEDS: MEROPENEM 1,000 MG in SODIUM CHLORIDE 0.9% 100 ML IV SCH (21:57)
[2016-08-21] MEDS: ACETYLCYSTEINE 100MG/ML 10% VIAL 4ML INH SCH ×7 (00:22→23:51)
[2016-08-21] MEDS: IPRATROPIUM/ALBUTEROL 0.5-3(2.5)MG/3ML NEB HHN SCH ×7 (00:22→23:51)
[2016-08-21] MEDS: MIDAZOLAM HCL 50 MG in DEXTROSE 5% WATER 40 ML IV PRN ×2 (05:11→11:08)
[2016-08-21 05:30] LABS: BASOPHILS % 0.9 % (0.0-2.0); EOSINOPHILS % 2.7 % (0.0-5.0); HEMOGLOBIN. 11.9 g/dL (14.0-18.0); LYMPHOCYTES % 7.9 % (20.0-50.0); MEAN CORPUSCULAR HEMOGLOBIN 25.5 pg (28.0-32.0); MEAN CORPUSCULAR VOLUME 81.7 fL (80.0-94.0); MEAN PLATELET VOLUME 9.4 fl (7.4-10.4); MONOCYTES % 5.7 % (2.0-8.0); NEUTROPHILS % 82.8 % (40.0-76.0); PLATELET 228 x1000/uL (130-400); RED BLOOD CELL COUNT 4.66 mill/uL (4.7-6.1); RED CELL DISTRIBUTION WIDTH 21.1 % (11.6-14.6)
[2016-08-21 05:46] LABS: PHOSPHORUS 3.8 mg/dL (2.5-4.9)
[2016-08-21] MEDS: FENTANYL CITRATE/PF 500 MCG in SODIUM CHLORIDE 0.9% 40 ML IV PRN (05:55)
[2016-08-21] MEDS: COLISTIMETHATE SODIUM 150MG/VIAL INH SCH ×2 (07:36→20:16)
[2016-08-21] MEDS: ENOXAPARIN 40MG/0.4ML SYR SUBCUT SCH (08:36)
[2016-08-21] MEDS: MEROPENEM 1,000 MG in SODIUM CHLORIDE 0.9% 100 ML IV SCH ×2 (09:16→21:04)
[2016-08-21] MEDS: PANTOPRAZOLE SODIUM 40 MG/VIAL IV SCH (09:16)
[2016-08-21] MEDS: AMIODARONE HCL 200 MG TABLET PO SCH (09:16)
[2016-08-21 10:00] LABS: BG BASE EXCESS 2.8 mmol/L (-2.0-2.0); BG CARBOXYHEMOGLOBIN 1.2 % (0.5-1.5); BG DEOXYHEMOGLOBIN 4.9 % (0.0-5.0); BG FRACTION INSPIRED OXYGEN 40; BG HCO3 ACT 26.1 mmol/L (22.0-26.0); BG METHEMOGLOBIN 0.4 % (0.0-1.5); BG OXYHEMOGLOBIN 93.5 % (94.0-97.0); BG PCO2 35.7 mmHg (35.0-45.0); BG PH 7.482 (7.350-7.450); BG PO2 78.6 mmHg (75.0-100.0); BG SAMPLE SITE RIGHT BRACHIAL; BG TIDAL VOLUME(mL) 550 mL; BG TOTAL HEMOGLOBIN 12.8 g/dL (12.0-18.0); BG VENT MODE VENT - A/C; BG VENT RATE 10 set
[2016-08-21] MEDS: MORPHINE SULFATE 2 MG/ML CPJ (NOT FOR IM USE) IV PRN ×2 (11:08→21:06)
[2016-08-21] MEDS: DIPHENHYDRAMINE 50MG/ML VIAL IV PRN ×2 (12:14→18:27)
[2016-08-21] MEDS ORDERED: DEXTROSE 5% IV PRN (13:34)
[2016-08-21] MEDS ORDERED: WATER IV PRN (13:34)
[2016-08-21] MEDS ORDERED: MIDAZOLAM HCL IV PRN (13:34)
[2016-08-21] MEDS: MIDAZOLAM HCL 100 MG in DEXT 5% WATER 80 ML IV PRN (16:10)
[2016-08-21] MEDS: QUETIAPINE FUMARATE 50MG TABLET NG SCH (21:04)
[2016-08-22] MEDS: MIDAZOLAM HCL 100 MG in DEXT 5% WATER 80 ML IV PRN ×2 (02:42→15:58)
[2016-08-22] MEDS: DIPHENHYDRAMINE 50MG/ML VIAL IV PRN (02:47)
[2016-08-22] MEDS: IPRATROPIUM/ALBUTEROL 0.5-3(2.5)MG/3ML NEB HHN SCH ×5 (04:20→20:41)
[2016-08-22] MEDS: ACETYLCYSTEINE 100MG/ML 10% VIAL 4ML INH SCH ×4 (04:20→20:42)
[2016-08-22] MEDS: MORPHINE SULFATE 2 MG/ML CPJ (NOT FOR IM USE) IV PRN ×3 (05:18→16:40)
[2016-08-22 05:22] LABS: HEMATOCRIT 37.7 % (42.0-52.0); HEMOGLOBIN 11.8 g/dL (14.0-18.0); MEAN CORPUSCULAR HEMOGLOBIN 25.7 pg (28.0-32.0); MEAN CORPUSCULAR VOLUME 82.1 fL (80.0-94.0); PLATELET 257 x1000/uL (130-400); RED BLOOD CELL COUNT 4.59 mill/uL (4.7-6.1); RED CELL DISTRIBUTION WIDTH 21.1 % (11.6-14.6)
[2016-08-22] MEDS: ENOXAPARIN 40MG/0.4ML SYR SUBCUT SCH (09:00)
[2016-08-22] MEDS: COLISTIMETHATE SODIUM 150MG/VIAL INH SCH (09:02)
[2016-08-22] MEDS: PANTOPRAZOLE SODIUM 40 MG/VIAL IV SCH (09:11)
[2016-08-22] MEDS: MEROPENEM 1,000 MG in SODIUM CHLORIDE 0.9% 100 ML IV SCH ×2 (09:11→20:28)
[2016-08-22] MEDS: AMIODARONE HCL 200 MG TABLET PO SCH (09:11)
[2016-08-22] MEDS: QUETIAPINE FUMARATE 50MG TABLET NG SCH ×2 (09:11→20:28)
[2016-08-22] MEDS ORDERED: MORPHINE SULFATE 2 MG/ML CPJ (NOT FOR IM USE) IV PRN ×2 (15:15)
[2016-08-22] MEDS ORDERED: BISACODYL 5MG TABLET PO PRN (15:45)
[2016-08-22] MEDS: BISACODYL 10MG SUPP PR PRN (15:59)
[2016-08-22] MEDS: METOCLOPRAMIDE HCL 10MG/2ML VIAL IV SCH (18:22)
[2016-08-22] MEDS: ACETAMINOPHEN 325MG TABLET PO PRN (20:46)
[2016-08-22] MEDS ORDERED: NOREPINEPHRINE 16 MG in DEXT 5% WATER 234 ML IV PRN (21:00)
[2016-08-22] MEDS ORDERED: PHENYLEPHRINE 40 MG in DEXT 5% WATER 246 ML IV PRN (21:00)
[2016-08-22] MEDS ORDERED: SODIUM POLYSTYRENE SULFONATE 15 G/60 ML BOT PO ONE (21:00)
[2016-08-23] MEDS: METOCLOPRAMIDE HCL 10MG/2ML VIAL IV SCH ×4 (00:12→17:18)
[2016-08-23] MEDS: ACETYLCYSTEINE 100MG/ML 10% VIAL 4ML INH SCH ×5 (00:20→20:22)
[2016-08-23] MEDS: IPRATROPIUM/ALBUTEROL 0.5-3(2.5)MG/3ML NEB HHN SCH ×6 (00:20→20:22)
[2016-08-23 05:19] LABS: HEMATOCRIT 38.4 % (42.0-52.0); HEMOGLOBIN 12.2 g/dL (14.0-18.0); MEAN CORPUSCULAR HEMOGLOBIN 26.2 pg (28.0-32.0); MEAN CORPUSCULAR VOLUME 82.2 fL (80.0-94.0); PLATELET 268 x1000/uL (130-400); RED BLOOD CELL COUNT 4.67 mill/uL (4.7-6.1); RED CELL DISTRIBUTION WIDTH 22.7 % (11.6-14.6)
[2016-08-23] MEDS: MIDAZOLAM HCL 100 MG in DEXT 5% WATER 80 ML IV PRN ×2 (06:11→20:40)
[2016-08-23 08:04] LABS: BG BASE EXCESS 1.8 mmol/L (-2.0-2.0); BG CARBOXYHEMOGLOBIN 0.4 % (0.5-1.5); BG DEOXYHEMOGLOBIN 1.8 % (0.0-5.0); BG FRACTION INSPIRED OXYGEN 40; BG HCO3 ACT 25.5 mmol/L (22.0-26.0); BG METHEMOGLOBIN 0.2 % (0.0-1.5); BG OXYGEN SATURATION 98.2 % (92.0-98.5); BG OXYHEMOGLOBIN 97.6 % (94.0-97.0); BG PCO2 36.8 mmHg (35.0-45.0); BG PH 7.458 (7.350-7.450); BG PO2 127.8 mmHg (75.0-100.0); BG SAMPLE SITE RIGHT RADIAL; BG TIDAL VOLUME(mL) 550 mL; BG TOTAL HEMOGLOBIN 12.6 g/dL (12.0-18.0); BG VENT MODE VENT - A/C; BG VENT RATE 12 set
[2016-08-23] MEDS: QUETIAPINE FUMARATE 50MG TABLET NG SCH ×2 (08:19→19:59)
[2016-08-23] MEDS: PANTOPRAZOLE SODIUM 40 MG/VIAL IV SCH (08:19)
[2016-08-23] MEDS: AMIODARONE HCL 200 MG TABLET PO SCH (08:20)
[2016-08-23] MEDS: ENOXAPARIN 40MG/0.4ML SYR SUBCUT SCH (08:20)
[2016-08-23] MEDS: MEROPENEM 1,000 MG in SODIUM CHLORIDE 0.9% 100 ML IV SCH ×2 (08:31→20:00)
[2016-08-23] MEDS: COLISTIMETHATE SODIUM 150MG/VIAL INH SCH ×2 (09:05→20:58)
[2016-08-23] MEDS: ACETAMINOPHEN 650MG/20.3ML UDC NG PRN (19:58)
[2016-08-24] MEDS: ACETYLCYSTEINE 100MG/ML 10% VIAL 4ML INH SCH ×6 (00:02→20:17)
[2016-08-24] MEDS: IPRATROPIUM/ALBUTEROL 0.5-3(2.5)MG/3ML NEB HHN SCH ×6 (00:02→20:16)
[2016-08-24] MEDS: METOCLOPRAMIDE HCL 10MG/2ML VIAL IV SCH ×5 (00:35→23:07)
[2016-08-24] MEDS: DIPHENHYDRAMINE 50MG/ML VIAL IV PRN (05:02)
[2016-08-24] MEDS: MEROPENEM 1,000 MG in SODIUM CHLORIDE 0.9% 100 ML IV SCH ×3 (05:02→21:34)
[2016-08-24 05:34] LABS: BASOPHILS % 0.9 % (0.0-2.0); EOSINOPHILS % 3.7 % (0.0-5.0); HEMATOCRIT. 38.9 % (42.0-52.0); HEMOGLOBIN. 12.2 g/dL (14.0-18.0); LYMPHOCYTES % 7.2 % (20.0-50.0); MEAN CORPUSCULAR HEMOGLOBIN 25.8 pg (28.0-32.0); MEAN PLATELET VOLUME 9.2 fl (7.4-10.4); MONOCYTES % 6.3 % (2.0-8.0); NEUTROPHILS % 81.9 % (40.0-76.0); PLATELET 307 x1000/uL (130-400); RED BLOOD CELL COUNT 4.75 mill/uL (4.7-6.1); RED CELL DISTRIBUTION WIDTH 22.9 % (11.6-14.6)
[2016-08-24] MEDS: MORPHINE SULFATE 2 MG/ML CPJ (NOT FOR IM USE) IV PRN ×3 (06:00→20:26)
[2016-08-24] MEDS: MIDAZOLAM HCL 100 MG in DEXT 5% WATER 80 ML IV PRN ×2 (08:02→18:15)
[2016-08-24] MEDS: PANTOPRAZOLE SODIUM 40 MG/VIAL IV SCH (09:42)
[2016-08-24] MEDS: COLISTIMETHATE SODIUM 150MG/VIAL INH SCH (09:42)
[2016-08-24] MEDS: AMIODARONE HCL 200 MG TABLET PO SCH (09:43)
[2016-08-24] MEDS: RISPERIDONE 1MG TABLET PO SCH ×2 (09:43→20:22)
[2016-08-24] MEDS: QUETIAPINE FUMARATE 50MG TABLET NG SCH ×2 (09:43→20:22)
[2016-08-24] MEDS: ENOXAPARIN 40MG/0.4ML SYR SUBCUT SCH (09:44)
[2016-08-24 09:58] LABS: BG BASE EXCESS 0.1 mmol/L (-2.0-2.0); BG CARBOXYHEMOGLOBIN 1.2 % (0.5-1.5); BG DEOXYHEMOGLOBIN 3.5 % (0.0-5.0); BG FRACTION INSPIRED OXYGEN 40; BG HCO3 ACT 23.8 mmol/L (22.0-26.0); BG METHEMOGLOBIN 0.5 % (0.0-1.5); BG OXYGEN SATURATION 96.4 % (92.0-98.5); BG OXYHEMOGLOBIN 94.8 % (94.0-97.0); BG PCO2 35.7 mmHg (35.0-45.0); BG PH 7.442 (7.350-7.450); BG PO2 90.7 mmHg (75.0-100.0); BG SAMPLE SITE LEFT RADIAL; BG TIDAL VOLUME(mL) 550 mL; BG TOTAL HEMOGLOBIN 13.4 g/dL (12.0-18.0); BG VENT MODE VENT - A/C; BG VENT RATE 12 set
[2016-08-24] MEDS: ACETAMINOPHEN 650MG/20.3ML UDC NG PRN (23:07)
[2016-08-25] MEDS: ACETYLCYSTEINE 100MG/ML 10% VIAL 4ML INH SCH ×6 (00:22→19:54)
[2016-08-25] MEDS: IPRATROPIUM/ALBUTEROL 0.5-3(2.5)MG/3ML NEB HHN SCH ×6 (00:22→19:54)
[2016-08-25] MEDS: MIDAZOLAM HCL 100 MG in DEXT 5% WATER 80 ML IV PRN ×2 (05:27→15:17)
[2016-08-25 05:28] LABS: BASOPHILS % 1.1 % (0.0-2.0); EOSINOPHILS % 3.7 % (0.0-5.0); HEMATOCRIT. 39.9 % (42.0-52.0); HEMOGLOBIN. 12.6 g/dL (14.0-18.0); LYMPHOCYTES % 8.7 % (20.0-50.0); MEAN CORPUSCULAR HEMOGLOBIN 26.1 pg (28.0-32.0); MEAN CORPUSCULAR VOLUME 82.4 fL (80.0-94.0); MONOCYTES % 8.4 % (2.0-8.0); NEUTROPHILS % 78.1 % (40.0-76.0); PLATELET 334 x1000/uL (130-400); RED BLOOD CELL COUNT 4.84 mill/uL (4.7-6.1); RED CELL DISTRIBUTION WIDTH 22.6 % (11.6-14.6)
[2016-08-25] MEDS: METOCLOPRAMIDE HCL 10MG/2ML VIAL IV SCH ×3 (05:52→18:59)
[2016-08-25 05:53] LABS: INR 1.3; PARTIAL THROMBOPLASTIN TIME 30.3 sec (24.0-34.0); PROTHROMBIN TIME 13.4 sec
[2016-08-25 05:58] LABS: CARBON DIOXIDE 26 mEq/L (21-32); CHLORIDE 113 mEq/L (98-107)
[2016-08-25] MEDS: MEROPENEM 1,000 MG in SODIUM CHLORIDE 0.9% 100 ML IV SCH ×3 (05:59→22:46)
[2016-08-25] MEDS: AMIODARONE HCL 200 MG TABLET PO SCH (09:13)
[2016-08-25] MEDS: PANTOPRAZOLE SODIUM 40 MG/VIAL IV SCH (09:13)
[2016-08-25] MEDS: QUETIAPINE FUMARATE 100MG TABLET PO SCH ×2 (10:00→22:46)
[2016-08-25] MEDS ORDERED: DEXTROSE 5% WATER 1,000 ML IV SCH ×2 (12:00→16:46)
[2016-08-25] MEDS ORDERED: ACETAMINOPHEN 650MG SUPP PR PRN (13:25)
[2016-08-25] MEDS: MICAFUNGIN 100 MG in SODIUM CHLORIDE 0.9% 100 ML IV SCH (15:15)
[2016-08-25] MEDS ORDERED: SIMETHICONE 40 MG/0.6 ML 30ML ONE (15:28)
[2016-08-25] MEDS ORDERED: FENTANYL CITRATE/PF 50MCG/ML 2ML VIAL ONE (15:28)
[2016-08-25] MEDS ORDERED: MIDAZOLAM HCL 5 MG/5 ML VIAL ONE (15:29)
[2016-08-25] MEDS ORDERED: VANCOMYCIN 2,000 MG in DEXT 5% WATER 500 ML IV NR (16:00)
[2016-08-25] MEDS: COLISTIMETHATE SODIUM 150MG/VIAL INH SCH (16:24)
[2016-08-25 17:21] LABS: CLARITY URINE CLOUDY (CLEAR); COLOR URINE DARK YELLOW (YELLOW); KETONES URINE TRACE (NEGATIVE); LEUKOCYTE ESTERASE URINE TRACE (NEGATIVE); NITRITE URINE NEGATIVE (NEGATIVE); OCCULT BLOOD URINE 3+ (NEGATIVE); PH URINE 5.5 (4.5-8.0); PROTEIN URINE 3+ (NEGATIVE); SPECIFIC GRAVITY URINE 1.027 (1.005-1.030)
[2016-08-25] MEDS: MORPHINE SULFATE 2 MG/ML CPJ (NOT FOR IM USE) IV PRN ×2 (17:58→22:47)
[2016-08-26] MEDS: ACETYLCYSTEINE 100MG/ML 10% VIAL 4ML INH SCH ×6 (00:16→17:02)
[2016-08-26] MEDS: COLISTIMETHATE SODIUM 150MG/VIAL INH SCH ×3 (00:16→21:00)
[2016-08-26] MEDS: IPRATROPIUM/ALBUTEROL 0.5-3(2.5)MG/3ML NEB HHN SCH ×6 (00:17→20:37)
[2016-08-26] MEDS: METOCLOPRAMIDE HCL 10MG/2ML VIAL IV SCH ×5 (00:45→23:02)
[2016-08-26] MEDS: MORPHINE SULFATE 2 MG/ML CPJ (NOT FOR IM USE) IV PRN ×2 (02:54→09:19)
[2016-08-26] MEDS: LORAZEPAM 2MG/ML CPJ IV PRN ×4 (04:20→20:38)
[2016-08-26 04:44] LABS: BASOPHILS % 0.2 % (0.0-2.0); EOSINOPHILS % 1.7 % (0.0-5.0); HEMATOCRIT. 41.8 % (42.0-52.0); LYMPHOCYTES % 8.4 % (20.0-50.0); MEAN CORPUSCULAR HEMOGLOBIN 25.8 pg (28.0-32.0); MEAN CORPUSCULAR VOLUME 82.8 fL (80.0-94.0); MEAN PLATELET VOLUME 8.8 fl (7.4-10.4); MONOCYTES % 6.2 % (2.0-8.0); NEUTROPHILS % 83.5 % (40.0-76.0); PLATELET 358 x1000/uL (130-400); RED BLOOD CELL COUNT 5.05 mill/uL (4.7-6.1); RED CELL DISTRIBUTION WIDTH 23.2 % (11.6-14.6)
[2016-08-26 05:10] LABS: CARBON DIOXIDE 25 mEq/L (21-32); CHLORIDE 114 mEq/L (98-107); CREATINE KINASE 140 IU/L (39-308); PHOSPHORUS 3.6 mg/dL (2.5-4.9)
[2016-08-26] MEDS ORDERED: VANCOMYCIN 1 G PREMIX 200 ML IV SCH (06:00)
[2016-08-26] MEDS: MEROPENEM 1,000 MG in SODIUM CHLORIDE 0.9% 100 ML IV SCH ×3 (07:19→22:55)
[2016-08-26] MEDS: PANTOPRAZOLE SODIUM 40 MG/VIAL IV SCH (09:07)
[2016-08-26] MEDS: AMIODARONE HCL 200 MG TABLET PO SCH (09:07)
[2016-08-26] MEDS: QUETIAPINE FUMARATE 100MG TABLET PO SCH ×2 (09:07→20:38)
[2016-08-26] MEDS: MICAFUNGIN 100 MG in SODIUM CHLORIDE 0.9% 100 ML IV SCH (16:14)
[2016-08-27] MEDS ORDERED: VANCOMYCIN 1250MG in DEXTROSE 5% WATER 250ML IV SCH ×2
[2016-08-27] MEDS: IPRATROPIUM/ALBUTEROL 0.5-3(2.5)MG/3ML NEB HHN SCH ×6 (00:23→20:43)
[2016-08-27] MEDS: VANCOMYCIN 1250MG in DEXTROSE 5% WATER 250ML IV SCH ×2 (01:46→21:16)
[2016-08-27] MEDS: ACETYLCYSTEINE 100MG/ML 10% VIAL 4ML INH SCH ×4 (04:17→16:48)
[2016-08-27] MEDS: LORAZEPAM 2MG/ML CPJ IV PRN ×2 (04:22→15:04)
[2016-08-27] MEDS: MEROPENEM 1,000 MG in SODIUM CHLORIDE 0.9% 100 ML IV SCH ×3 (05:01→22:41)
[2016-08-27] MEDS: METOCLOPRAMIDE HCL 10MG/2ML VIAL IV SCH ×4 (05:01→23:54)
[2016-08-27] MEDS: MORPHINE SULFATE 4 MG/ML CPJ (NOT FOR IM USE) IV PRN ×3 (06:45→18:43)
[2016-08-27 07:10] LABS: BASOPHILS % 0.8 % (0.0-2.0); EOSINOPHILS % 1.7 % (0.0-5.0); HEMATOCRIT. 42.6 % (42.0-52.0); HEMOGLOBIN. 13.4 g/dL (14.0-18.0); LYMPHOCYTES % 7.3 % (20.0-50.0); MEAN CORPUSCULAR HEMOGLOBIN 26.1 pg (28.0-32.0); MEAN CORPUSCULAR VOLUME 82.9 fL (80.0-94.0); MEAN PLATELET VOLUME 8.9 fl (7.4-10.4); MONOCYTES % 5.8 % (2.0-8.0); NEUTROPHILS % 84.4 % (40.0-76.0); PLATELET 372 x1000/uL (130-400); RED BLOOD CELL COUNT 5.13 mill/uL (4.7-6.1); RED CELL DISTRIBUTION WIDTH 22.9 % (11.6-14.6)
[2016-08-27] MEDS: COLISTIMETHATE SODIUM 150MG/VIAL INH SCH ×2 (07:44→20:58)
[2016-08-27] MEDS: PANTOPRAZOLE SODIUM 40 MG/VIAL IV SCH (08:52)
[2016-08-27] MEDS: AMIODARONE HCL 200 MG TABLET PO SCH (08:53)
[2016-08-27] MEDS: QUETIAPINE FUMARATE 100MG TABLET PO SCH ×2 (08:53→21:16)
[2016-08-27 14:11] LABS: PLATELET ESTIMATE NORMAL
[2016-08-28] MEDS: IPRATROPIUM/ALBUTEROL 0.5-3(2.5)MG/3ML NEB HHN SCH ×6 (00:20→20:44)
[2016-08-28] MEDS: MEROPENEM 1,000 MG in SODIUM CHLORIDE 0.9% 100 ML IV SCH ×3 (05:09→21:00)
[2016-08-28] MEDS: METOCLOPRAMIDE HCL 10MG/2ML VIAL IV SCH ×3 (05:09→17:40)
[2016-08-28] MEDS: LORAZEPAM 2MG/ML CPJ IV PRN (05:43)
[2016-08-28] MEDS: MORPHINE SULFATE 4 MG/ML CPJ (NOT FOR IM USE) IV PRN ×2 (06:39→12:30)
[2016-08-28] MEDS: COLISTIMETHATE SODIUM 150MG/VIAL INH SCH ×2 (07:39→21:08)
[2016-08-28] MEDS: HALOPERIDOL LACTATE 5MG/ML VIAL IM PRN (08:20)
[2016-08-28] MEDS: AMIODARONE HCL 200 MG TABLET PO SCH ×2 (08:37→08:42)
[2016-08-28] MEDS: PANTOPRAZOLE SODIUM 40 MG/VIAL IV SCH (08:37)
[2016-08-28] MEDS: QUETIAPINE FUMARATE 100MG TABLET PO SCH ×3 (08:37→21:00)
[2016-08-28] MEDS: VANCOMYCIN 1250MG in DEXTROSE 5% WATER 250ML IV SCH (14:59)
[2016-08-29] MEDS: IPRATROPIUM/ALBUTEROL 0.5-3(2.5)MG/3ML NEB HHN SCH ×6 (00:09→20:40)
[2016-08-29] MEDS: METOCLOPRAMIDE HCL 10MG/2ML VIAL IV SCH ×4 (00:35→18:20)
[2016-08-29] MEDS: MORPHINE SULFATE 4 MG/ML CPJ (NOT FOR IM USE) IV PRN (03:11)
[2016-08-29] MEDS: MEROPENEM 1,000 MG in SODIUM CHLORIDE 0.9% 100 ML IV SCH ×3 (06:26→21:53)
[2016-08-29] MEDS: LORAZEPAM 2MG/ML CPJ IV PRN ×4 (07:30→20:16)
[2016-08-29] MEDS: VANCOMYCIN 1250MG in DEXTROSE 5% WATER 250ML IV SCH (07:35)
[2016-08-29] MEDS: PANTOPRAZOLE SODIUM 40 MG/VIAL IV SCH (08:01)
[2016-08-29] MEDS: AMIODARONE HCL 200 MG TABLET PO SCH (08:02)
[2016-08-29] MEDS: QUETIAPINE FUMARATE 100MG TABLET PO SCH ×2 (08:02→21:16)
[2016-08-29] MEDS: COLISTIMETHATE SODIUM 150MG/VIAL INH SCH ×2 (12:25→20:39)
[2016-08-29 14:58] LABS: BASOPHILS % 1.1 % (0.0-2.0); HEMATOCRIT. 39.3 % (42.0-52.0); HEMOGLOBIN. 12.4 g/dL (14.0-18.0); LYMPHOCYTES % 7.7 % (20.0-50.0); MEAN CORPUSCULAR HEMOGLOBIN 26.2 pg (28.0-32.0); MEAN CORPUSCULAR VOLUME 83.3 fL (80.0-94.0); MEAN PLATELET VOLUME 9.6 fl (7.4-10.4); MONOCYTES % 4.7 % (2.0-8.0); NEUTROPHILS % 83.5 % (40.0-76.0); PLATELET 326 x1000/uL (130-400); RED BLOOD CELL COUNT 4.71 mill/uL (4.7-6.1); RED CELL DISTRIBUTION WIDTH 23.3 % (11.6-14.6)
[2016-08-29 15:10] LABS: CARBON DIOXIDE 28 mEq/L (21-32); CHLORIDE 115 mEq/L (98-107)
[2016-08-29] MEDS: HALOPERIDOL LACTATE 5MG/ML VIAL IM PRN (16:51)
[2016-08-30] MEDS: METOCLOPRAMIDE HCL 10MG/2ML VIAL IV SCH ×4 (00:13→17:16)
[2016-08-30] MEDS: IPRATROPIUM/ALBUTEROL 0.5-3(2.5)MG/3ML NEB HHN SCH ×6 (00:46→21:08)
[2016-08-30] MEDS: VANCOMYCIN 1250MG in DEXTROSE 5% WATER 250ML IV SCH ×2 (02:07→20:05)
[2016-08-30] MEDS: HALOPERIDOL LACTATE 5MG/ML VIAL IM PRN (02:18)
[2016-08-30 05:50] LABS: HEMATOCRIT. 41.3 % (42.0-52.0); MEAN CORPUSCULAR HEMOGLOBIN 26.4 pg (28.0-32.0); MEAN CORPUSCULAR VOLUME 83.6 fL (80.0-94.0); MEAN PLATELET VOLUME 8.7 fl (7.4-10.4); PLATELET 350 x1000/uL (130-400); RED BLOOD CELL COUNT 4.94 mill/uL (4.7-6.1); RED CELL DISTRIBUTION WIDTH 23.3 % (11.6-14.6)
[2016-08-30] MEDS: MEROPENEM 1,000 MG in SODIUM CHLORIDE 0.9% 100 ML IV SCH ×3 (05:52→21:50)
[2016-08-30 06:16] LABS: CARBON DIOXIDE 23 mEq/L (21-32); CHLORIDE 115 mEq/L (98-107)
[2016-08-30] MEDS: LORAZEPAM 2MG/ML CPJ IV PRN (06:45)
[2016-08-30] MEDS: COLISTIMETHATE SODIUM 150MG/VIAL INH SCH ×2 (08:42→21:31)
[2016-08-30] MEDS: AMIODARONE HCL 200 MG TABLET PO SCH (09:03)
[2016-08-30] MEDS: QUETIAPINE FUMARATE 100MG TABLET PO SCH ×2 (09:03→20:49)
[2016-08-30] MEDS: PANTOPRAZOLE SODIUM 40 MG/VIAL IV SCH (09:04)
[2016-08-31] MEDS: METOCLOPRAMIDE HCL 10MG/2ML VIAL IV SCH ×5 (00:03→23:44)
[2016-08-31] MEDS: IPRATROPIUM/ALBUTEROL 0.5-3(2.5)MG/3ML NEB HHN SCH ×6 (00:25→20:41)
[2016-08-31] MEDS: HALOPERIDOL LACTATE 5MG/ML VIAL IM PRN (02:23)
[2016-08-31] MEDS: MEROPENEM 1,000 MG in SODIUM CHLORIDE 0.9% 100 ML IV SCH ×3 (05:32→21:15)
[2016-08-31 06:38] LABS: HEMATOCRIT. 40.6 % (42.0-52.0); HEMOGLOBIN. 12.6 g/dL (14.0-18.0); MEAN CORPUSCULAR HEMOGLOBIN 25.8 pg (28.0-32.0); MEAN CORPUSCULAR VOLUME 83.2 fL (80.0-94.0); MEAN PLATELET VOLUME 9.6 fl (7.4-10.4); PLATELET 324 x1000/uL (130-400); RED BLOOD CELL COUNT 4.88 mill/uL (4.7-6.1); RED CELL DISTRIBUTION WIDTH 24.1 % (11.6-14.6)
[2016-08-31 07:33] LABS: CARBON DIOXIDE 22 mEq/L (21-32); CHLORIDE 114 mEq/L (98-107)
[2016-08-31 08:03] LABS: PLATELET ESTIMATE NORMAL
[2016-08-31] MEDS: PANTOPRAZOLE SODIUM 40 MG/VIAL IV SCH (08:15)
[2016-08-31] MEDS: AMIODARONE HCL 200 MG TABLET PO SCH (08:15)
[2016-08-31] MEDS: ENOXAPARIN 40MG/0.4ML SYR SUBCUT SCH (08:16)
[2016-08-31] MEDS: QUETIAPINE FUMARATE 100MG TABLET PO SCH ×3 (08:16→20:22)
[2016-08-31] MEDS: COLISTIMETHATE SODIUM 150MG/VIAL INH SCH ×2 (08:29→20:41)
[2016-08-31 09:15] LABS: PLATELET ESTIMATE NORMAL
[2016-08-31] MEDS ORDERED: AMLODIPINE 5MG TABLET PO SCH (09:45)
[2016-08-31] MEDS ORDERED: LACTULOSE 20G/30ML UDC GT PRN (10:29)
[2016-08-31] MEDS: VANCOMYCIN 1250MG in DEXTROSE 5% WATER 250ML IV SCH (14:30)
[2016-08-31] MEDS: DIPHENHYDRAMINE 50MG/ML VIAL IV PRN (23:45)
[2016-09-01] MEDS: IPRATROPIUM/ALBUTEROL 0.5-3(2.5)MG/3ML NEB HHN SCH ×7 (00:16→23:56)
[2016-09-01] MEDS: MEROPENEM 1,000 MG in SODIUM CHLORIDE 0.9% 100 ML IV SCH ×3 (05:04→21:55)
[2016-09-01] MEDS: VANCOMYCIN 1500MG in DEXTROSE 5% WATER 250ML IV SCH ×2 (05:07→23:36)
[2016-09-01] MEDS: METOCLOPRAMIDE HCL 10MG/2ML VIAL IV SCH ×2 (06:49→11:42)
[2016-09-01 07:05] LABS: HEMATOCRIT. 39.4 % (42.0-52.0); HEMOGLOBIN. 12.4 g/dL (14.0-18.0); MEAN CORPUSCULAR HEMOGLOBIN 26.5 pg (28.0-32.0); MEAN CORPUSCULAR VOLUME 83.8 fL (80.0-94.0); MEAN PLATELET VOLUME 9.2 fl (7.4-10.4); PLATELET 287 x1000/uL (130-400); RED CELL DISTRIBUTION WIDTH 23.7 % (11.6-14.6)
[2016-09-01 07:20] LABS: CARBON DIOXIDE 23 mEq/L (21-32); CHLORIDE 115 mEq/L (98-107); PHOSPHORUS 3.2 mg/dL (2.5-4.9)
[2016-09-01] MEDS: ENOXAPARIN 30MG/0.3ML SYR SUBCUT SCH ×2 (08:01→21:54)
[2016-09-01] MEDS: PANTOPRAZOLE SODIUM 40 MG/VIAL IV SCH (08:01)
[2016-09-01] MEDS: AMLODIPINE 5MG TABLET GT SCH (08:02)
[2016-09-01] MEDS: AMIODARONE HCL 200 MG TABLET PO SCH (08:02)
[2016-09-01] MEDS: COLISTIMETHATE SODIUM 150MG/VIAL INH SCH ×2 (08:25→20:06)
[2016-09-01] MEDS: QUETIAPINE FUMARATE 100MG TABLET PO SCH (09:00)
[2016-09-01 13:04] LABS: NUCLEATED RED BLOOD CELLS 1 /100 WBC; PLATELET ESTIMATE NORMAL
[2016-09-01] MEDS ORDERED: HYDROCODONE/ACETAMINOPHEN 5/325MG TABLET PO PRN (13:45)
[2016-09-01] MEDS ORDERED: QUETIAPINE FUMARATE 50MG TABLET PO SCH (21:00)
[2016-09-01] MEDS: LORAZEPAM 2MG/ML CPJ IV PRN (23:36)
[2016-09-01] MEDS: DIPHENHYDRAMINE 50MG/ML VIAL IV PRN (23:36)
[2016-09-02] MEDS: IPRATROPIUM/ALBUTEROL 0.5-3(2.5)MG/3ML NEB HHN SCH ×5 (04:48→20:34)
[2016-09-02 05:58] LABS: CARBON DIOXIDE 24 mEq/L (21-32); CHLORIDE 112 mEq/L (98-107)
[2016-09-02] MEDS: PANTOPRAZOLE SODIUM 40 MG/VIAL IV SCH (08:25)
[2016-09-02] MEDS: AMLODIPINE 5MG TABLET GT SCH (08:25)
[2016-09-02] MEDS: AMIODARONE HCL 200 MG TABLET PO SCH (08:25)
[2016-09-02] MEDS: ENOXAPARIN 30MG/0.3ML SYR SUBCUT SCH ×2 (08:25→20:45)
[2016-09-02 12:03] LABS: BG BASE EXCESS -3.5 mmol/L (-2.0-2.0); BG CARBOXYHEMOGLOBIN 0.6 % (0.5-1.5); BG DEOXYHEMOGLOBIN 4.9 % (0.0-5.0); BG FRACTION INSPIRED OXYGEN 40; BG HCO3 ACT 20.6 mmol/L (22.0-26.0); BG METHEMOGLOBIN 0.4 % (0.0-1.5); BG OXYGEN SATURATION 95.1 % (92.0-98.5); BG OXYHEMOGLOBIN 94.1 % (94.0-97.0); BG PCO2 34.4 mmHg (35.0-45.0); BG PH 7.395 (7.350-7.450); BG PO2 85.1 mmHg (75.0-100.0); BG PRESSURE SUPPORT 18; BG SAMPLE SITE LEFT RADIAL; BG TIDAL VOLUME(mL) 550 mL; BG TOTAL HEMOGLOBIN 13.4 g/dL (12.0-18.0); BG VENT MODE VENT - SIMV; BG VENT RATE 4 set
[2016-09-02 15:16] LABS: *AMPHETAMINES SCREEN URINE NEGATIVE (NEGATIVE); *BARBITURATES SCREEN URINE NEGATIVE (NEGATIVE); *BENZODIAZEPINES SCREEN URINE PRESUMTIVE POSITIVE (NEGATIVE); *COCAINE SCREEN URINE NEGATIVE (NEGATIVE); CANNABINOID URINE SCREEN PRESUMTIVE POSITIVE (NEGATIVE); METHADONE URINE SCREEN NEGATIVE (NEGATIVE); OPIATES URINE SCREEN PRESUMTIVE POSITIVE (NEGATIVE); PHENCYCLIDINE URINE SCREEN NEGATIVE (NEGATIVE)
[2016-09-02] MEDS: QUETIAPINE FUMARATE 50MG TABLET PO SCH ×2 (17:54→20:51)
[2016-09-02] MEDS: VANCOMYCIN 1500MG in DEXTROSE 5% WATER 250ML IV SCH (17:54)
[2016-09-02] MEDS: DIPHENHYDRAMINE 50MG/ML VIAL IV PRN (20:42)
[2016-09-02] MEDS: LORAZEPAM 2MG/ML CPJ IV PRN ×2 (20:42→22:26)
[2016-09-02] MEDS ORDERED: HALOPERIDOL LACTATE 5MG/ML VIAL IM ONE (22:15)
[2016-09-02] MEDS ORDERED: LORAZEPAM 2MG/ML CPJ IV ONE (23:00)
[2016-09-02] MEDS ORDERED: LORAZEPAM 2MG/ML CPJ IV NR (23:00)
[2016-09-03] MEDS: PROPOFOL 10MG/ML 100ML 100 ML IV PRN ×3 (00:34→21:53)
[2016-09-03] MEDS: IPRATROPIUM/ALBUTEROL 0.5-3(2.5)MG/3ML NEB HHN SCH ×6 (00:47→20:41)
[2016-09-03 01:42] LABS: BG BASE EXCESS -1.1 mmol/L (-2.0-2.0); BG CARBOXYHEMOGLOBIN 0.7 % (0.5-1.5); BG DEOXYHEMOGLOBIN 12.9 % (0.0-5.0); BG FRACTION INSPIRED OXYGEN 40; BG HCO3 ACT 22.6 mmol/L (22.0-26.0); BG METHEMOGLOBIN 0.3 % (0.0-1.5); BG OXYHEMOGLOBIN 86.1 % (94.0-97.0); BG PCO2 34.8 mmHg (35.0-45.0); BG PH 7.431 (7.350-7.450); BG SAMPLE SITE RIGHT RADIAL; BG TIDAL VOLUME(mL) 550 mL; BG TOTAL HEMOGLOBIN 12.6 g/dL (12.0-18.0); BG VENT MODE VENT - A/C; BG VENT RATE 10 set
[2016-09-03 03:23] LABS: CLARITY URINE CLOUDY (CLEAR); COLOR URINE YELLOW (YELLOW); KETONES URINE NEGATIVE (NEGATIVE); LEUKOCYTE ESTERASE URINE NEGATIVE (NEGATIVE); NITRITE URINE NEGATIVE (NEGATIVE); OCCULT BLOOD URINE NEGATIVE (NEGATIVE); PROTEIN URINE 1+ (NEGATIVE); SPECIFIC GRAVITY URINE 1.012 (1.005-1.030); UROBILINOGEN URINE 0.2 E.U./dL (0.2-1.0)
[2016-09-03 06:08] LABS: HEMATOCRIT. 36.2 % (42.0-52.0); HEMOGLOBIN. 11.4 g/dL (14.0-18.0); MEAN CORPUSCULAR HEMOGLOBIN 26.4 pg (28.0-32.0); MEAN CORPUSCULAR VOLUME 84.1 fL (80.0-94.0); MEAN PLATELET VOLUME 8.9 fl (7.4-10.4); PLATELET 256 x1000/uL (130-400); RED BLOOD CELL COUNT 4.31 mill/uL (4.7-6.1)
[2016-09-03 07:58] LABS: PLATELET ESTIMATE NORMAL
[2016-09-03] MEDS: AMLODIPINE 5MG TABLET GT SCH (08:07)
[2016-09-03] MEDS: ENOXAPARIN 30MG/0.3ML SYR SUBCUT SCH ×2 (08:08→20:02)
[2016-09-03] MEDS: PANTOPRAZOLE SODIUM 40 MG/VIAL IV SCH (08:08)
[2016-09-03] MEDS: QUETIAPINE FUMARATE 50MG TABLET PO SCH (08:08)
[2016-09-03 08:24] LABS: BG BASE EXCESS 0.3 mmol/L (-2.0-2.0); BG CARBOXYHEMOGLOBIN 0.3 % (0.5-1.5); BG DEOXYHEMOGLOBIN 6.6 % (0.0-5.0); BG FRACTION INSPIRED OXYGEN 40; BG HCO3 ACT 24.1 mmol/L (22.0-26.0); BG METHEMOGLOBIN 0.2 % (0.0-1.5); BG OXYGEN SATURATION 93.4 % (92.0-98.5); BG OXYHEMOGLOBIN 92.9 % (94.0-97.0); BG PCO2 36.2 mmHg (35.0-45.0); BG PH 7.442 (7.350-7.450); BG PO2 74.4 mmHg (75.0-100.0); BG SAMPLE SITE RIGHT RADIAL; BG TIDAL VOLUME(mL) 550 mL; BG TOTAL HEMOGLOBIN 11.9 g/dL (12.0-18.0); BG VENT MODE VENT - A/C; BG VENT RATE 10 set
[2016-09-03] MEDS ORDERED: QUETIAPINE FUMARATE 100MG TABLET NG SCH (09:00)
[2016-09-03] MEDS ORDERED: QUETIAPINE FUMARATE 50MG TABLET PO NR (10:00)
[2016-09-03] MEDS: AMIODARONE HCL 200 MG TABLET PO SCH (10:06)
[2016-09-03] MEDS: VANCOMYCIN 1500MG in DEXTROSE 5% WATER 250ML IV SCH (11:43)
[2016-09-03] MEDS: LORAZEPAM 2MG/ML CPJ IV PRN ×3 (16:20→21:03)
[2016-09-03] MEDS: DIPHENHYDRAMINE 50MG/ML VIAL IV PRN (18:51)
[2016-09-03] MEDS: QUETIAPINE FUMARATE 100MG TABLET NG SCH (20:02)
[2016-09-03] MEDS: HYDROCODONE/ACETAMINOPHEN 10/325MG TABLET PO PRN (20:14)
[2016-09-04] MEDS: IPRATROPIUM/ALBUTEROL 0.5-3(2.5)MG/3ML NEB HHN SCH ×7 (00:19→23:52)
[2016-09-04] MEDS: PROPOFOL 10MG/ML 100ML 100 ML IV PRN ×2 (00:47→06:35)
[2016-09-04 06:00] LABS: BASOPHILS % 0.5 % (0.0-2.0); EOSINOPHILS % 5.8 % (0.0-5.0); HEMOGLOBIN. 11.6 g/dL (14.0-18.0); LYMPHOCYTES % 9.9 % (20.0-50.0); MEAN CORPUSCULAR HEMOGLOBIN 26.1 pg (28.0-32.0); MEAN CORPUSCULAR VOLUME 83.6 fL (80.0-94.0); MEAN PLATELET VOLUME 8.8 fl (7.4-10.4); MONOCYTES % 8.5 % (2.0-8.0); NEUTROPHILS % 75.3 % (40.0-76.0); PLATELET 273 x1000/uL (130-400); RED BLOOD CELL COUNT 4.43 mill/uL (4.7-6.1); RED CELL DISTRIBUTION WIDTH 24.1 % (11.6-14.6)
[2016-09-04 06:49] LABS: CARBON DIOXIDE 24 mEq/L (21-32); CHLORIDE 107 mEq/L (98-107)
[2016-09-04] MEDS: AMIODARONE HCL 200 MG TABLET PO SCH (08:29)
[2016-09-04] MEDS: AMLODIPINE 5MG TABLET GT SCH (08:29)
[2016-09-04] MEDS: PANTOPRAZOLE SODIUM 40 MG/VIAL IV SCH (08:29)
[2016-09-04] MEDS: QUETIAPINE FUMARATE 100MG TABLET NG SCH ×2 (08:29→20:03)
[2016-09-04] MEDS: ENOXAPARIN 30MG/0.3ML SYR SUBCUT SCH ×2 (08:31→20:04)
[2016-09-04] MEDS: LORAZEPAM 2MG/ML CPJ IV PRN ×6 (09:28→21:35)
[2016-09-04] MEDS ORDERED: QUETIAPINE FUMARATE 100MG TABLET PO SCH (09:45)
[2016-09-04] MEDS: VANCOMYCIN 1500MG in DEXTROSE 5% WATER 250ML IV SCH (10:22)
[2016-09-04] MEDS ORDERED: KCL 20MEQ/100ML PREMIX 100 ML IV NR (13:00)
[2016-09-04] MEDS: HYDROCODONE/ACETAMINOPHEN 10/325MG TABLET PO PRN (14:53)
[2016-09-04] MEDS: DIPHENHYDRAMINE 50MG/ML VIAL IV PRN (19:52)
[2016-09-04] MEDS: HALOPERIDOL LACTATE 5MG/ML VIAL IM PRN (19:53)
[2016-09-04] MEDS: BISACODYL 10MG SUPP PR PRN (21:43)
[2016-09-05] MEDS: LORAZEPAM 2MG/ML CPJ IV PRN ×3 (01:57→20:01)
[2016-09-05] MEDS: IPRATROPIUM/ALBUTEROL 0.5-3(2.5)MG/3ML NEB HHN SCH ×6 (04:03→23:56)
[2016-09-05 04:28] LABS: BASOPHILS % 0.1 % (0.0-2.0); EOSINOPHILS % 5.4 % (0.0-5.0); HEMOGLOBIN. 12.4 g/dL (14.0-18.0); LYMPHOCYTES % 10.8 % (20.0-50.0); MEAN CORPUSCULAR HEMOGLOBIN 27.1 pg (28.0-32.0); MEAN CORPUSCULAR VOLUME 83.4 fL (80.0-94.0); MEAN PLATELET VOLUME 9.1 fl (7.4-10.4); MONOCYTES % 9.5 % (2.0-8.0); NEUTROPHILS % 74.2 % (40.0-76.0); PLATELET 233 x1000/uL (130-400); RED BLOOD CELL COUNT 4.56 mill/uL (4.7-6.1); RED CELL DISTRIBUTION WIDTH 24.3 % (11.6-14.6)
[2016-09-05] MEDS: DIPHENHYDRAMINE 50MG/ML VIAL IV PRN (04:32)
[2016-09-05 04:40] LABS: CARBON DIOXIDE 26 mEq/L (21-32); CHLORIDE 106 mEq/L (98-107)
[2016-09-05] MEDS: HALOPERIDOL LACTATE 5MG/ML VIAL IM PRN ×2 (05:11→20:01)
[2016-09-05] MEDS: HYDROCODONE/ACETAMINOPHEN 10/325MG TABLET PO PRN (05:41)
[2016-09-05] MEDS: ENOXAPARIN 30MG/0.3ML SYR SUBCUT SCH ×2 (09:09→20:05)
[2016-09-05] MEDS: PANTOPRAZOLE SODIUM 40 MG/VIAL IV SCH (09:09)
[2016-09-05] MEDS: AMIODARONE HCL 200 MG TABLET PO SCH (09:09)
[2016-09-05] MEDS: AMLODIPINE 5MG TABLET GT SCH (09:10)
[2016-09-05] MEDS: QUETIAPINE FUMARATE 100MG TABLET NG SCH ×2 (09:10→20:05)
[2016-09-05] MEDS: VANCOMYCIN 1500MG in DEXTROSE 5% WATER 250ML IV SCH (11:48)
[2016-09-05] MEDS ORDERED: METOCLOPRAMIDE HCL 10MG/2ML VIAL IV SCH (12:00)
[2016-09-05] MEDS: MORPHINE SULFATE 4 MG/ML CPJ (NOT FOR IM USE) IV PRN ×2 (13:58→21:30)
[2016-09-05] MEDS: LACTULOSE 20G/30ML UDC GT SCH (20:05)
[2016-09-06] MEDS: LORAZEPAM 2MG/ML CPJ IV PRN ×3 (03:36→23:22)
[2016-09-06] MEDS: MORPHINE SULFATE 4 MG/ML CPJ (NOT FOR IM USE) IV PRN ×3 (03:38→20:59)
[2016-09-06] MEDS: IPRATROPIUM/ALBUTEROL 0.5-3(2.5)MG/3ML NEB HHN SCH ×5 (03:56→20:09)
[2016-09-06 06:23] LABS: BASOPHILS % 0.6 % (0.0-2.0); EOSINOPHILS % 5.6 % (0.0-5.0); HEMATOCRIT. 37.5 % (42.0-52.0); LYMPHOCYTES % 12.1 % (20.0-50.0); MEAN CORPUSCULAR HEMOGLOBIN 26.8 pg (28.0-32.0); MEAN CORPUSCULAR VOLUME 84.1 fL (80.0-94.0); MONOCYTES % 10.4 % (2.0-8.0); NEUTROPHILS % 71.3 % (40.0-76.0); RED BLOOD CELL COUNT 4.46 mill/uL (4.7-6.1); RED CELL DISTRIBUTION WIDTH 24.6 % (11.6-14.6)
[2016-09-06 07:23] LABS: CHLORIDE 104 mEq/L (98-107)
[2016-09-06 07:27] LABS: CARBON DIOXIDE 24 mEq/L (21-32)
[2016-09-06 07:42] LABS: MEAN PLATELET VOLUME 9.2 fl (7.4-10.4); PLATELET 218 x1000/uL (130-400); PLATELET ESTIMATE NORMAL
[2016-09-06] MEDS: AMLODIPINE 5MG TABLET GT SCH (08:43)
[2016-09-06] MEDS: ENOXAPARIN 30MG/0.3ML SYR SUBCUT SCH ×2 (08:43→20:05)
[2016-09-06] MEDS: QUETIAPINE FUMARATE 100MG TABLET NG SCH ×2 (08:43→20:05)
[2016-09-06] MEDS: AMIODARONE HCL 200 MG TABLET PO SCH (08:43)
[2016-09-06] MEDS: DEXT 5%/0.45% NACL KCL 20MEQ/L 1,000 ML IV SCH ×2 (09:35→22:25)
[2016-09-06] MEDS: PANTOPRAZOLE SODIUM 40 MG/VIAL IV SCH (10:01)
[2016-09-06] MEDS: VANCOMYCIN 1500MG in DEXTROSE 5% WATER 250ML IV SCH (10:06)
[2016-09-06 11:53] LABS: BG BASE EXCESS -0.5 mmol/L (-2.0-2.0); BG CARBOXYHEMOGLOBIN 0.9 % (0.5-1.5); BG DEOXYHEMOGLOBIN 3.2 % (0.0-5.0); BG FRACTION INSPIRED OXYGEN 35; BG HCO3 ACT 23.9 mmol/L (22.0-26.0); BG METHEMOGLOBIN 0.3 % (0.0-1.5); BG OXYGEN SATURATION 96.8 % (92.0-98.5); BG OXYHEMOGLOBIN 95.6 % (94.0-97.0); BG PCO2 38.4 mmHg (35.0-45.0); BG PH 7.412 (7.350-7.450); BG PO2 99.6 mmHg (75.0-100.0); BG SAMPLE SITE RIGHT RADIAL; BG TIDAL VOLUME(mL) 550 mL; BG TOTAL HEMOGLOBIN 12.6 g/dL (12.0-18.0); BG VENT MODE VENT - A/C; BG VENT RATE 10 set
[2016-09-06] MEDS: BISACODYL 10MG SUPP PR PRN (13:33)
[2016-09-06] MEDS: METOCLOPRAMIDE HCL 10MG/2ML VIAL IV SCH ×3 (13:33→23:22)
[2016-09-06] MEDS: LACTULOSE 20G/30ML UDC GT SCH (20:04)
[2016-09-07] MEDS: IPRATROPIUM/ALBUTEROL 0.5-3(2.5)MG/3ML NEB HHN SCH ×6 (00:08→20:25)
[2016-09-07 05:47] LABS: BASOPHILS % 1.2 % (0.0-2.0); EOSINOPHILS % 5.4 % (0.0-5.0); HEMATOCRIT. 36.1 % (42.0-52.0); HEMOGLOBIN. 11.6 g/dL (14.0-18.0); LYMPHOCYTES % 13.9 % (20.0-50.0); MEAN CORPUSCULAR HEMOGLOBIN 26.9 pg (28.0-32.0); MEAN CORPUSCULAR VOLUME 83.7 fL (80.0-94.0); MEAN PLATELET VOLUME 8.9 fl (7.4-10.4); MONOCYTES % 10.8 % (2.0-8.0); NEUTROPHILS % 68.7 % (40.0-76.0); PLATELET 227 x1000/uL (130-400); RED BLOOD CELL COUNT 4.31 mill/uL (4.7-6.1); RED CELL DISTRIBUTION WIDTH 23.7 % (11.6-14.6)
[2016-09-07] MEDS: METOCLOPRAMIDE HCL 10MG/2ML VIAL IV SCH ×3 (05:56→17:57)
[2016-09-07 06:04] LABS: CARBON DIOXIDE 22 mEq/L (21-32); CHLORIDE 105 mEq/L (98-107)
[2016-09-07] MEDS: AMIODARONE HCL 200 MG TABLET PO SCH (08:53)
[2016-09-07] MEDS: PANTOPRAZOLE SODIUM 40 MG/VIAL IV SCH (08:53)
[2016-09-07] MEDS: QUETIAPINE FUMARATE 100MG TABLET NG SCH ×2 (08:53→21:04)
[2016-09-07] MEDS: AMLODIPINE 5MG TABLET GT SCH (08:53)
[2016-09-07] MEDS: ENOXAPARIN 30MG/0.3ML SYR SUBCUT SCH ×2 (08:54→21:04)
[2016-09-07] MEDS ORDERED: MAGNESIUM 2 G PREMIX 50 ML IV ONE (09:45)
[2016-09-07] MEDS ORDERED: MAGNESIUM 2 G PREMIX 50 ML IV NR (11:00)
[2016-09-07] MEDS: MORPHINE SULFATE 4 MG/ML CPJ (NOT FOR IM USE) IV PRN ×2 (14:09→19:45)
[2016-09-07] MEDS: LORAZEPAM 2MG/ML CPJ IV PRN ×3 (15:00→22:29)
[2016-09-07] MEDS: DEXT 5%/0.45% NACL KCL 20MEQ/L 1,000 ML IV SCH (15:50)
[2016-09-07] MEDS: LACTULOSE 20G/30ML UDC GT SCH (21:03)
[2016-09-07] MEDS: HALOPERIDOL LACTATE 5MG/ML VIAL IM PRN (22:38)
[2016-09-08] MEDS: METOCLOPRAMIDE HCL 10MG/2ML VIAL IV SCH ×4 (00:04→19:06)
[2016-09-08] MEDS: IPRATROPIUM/ALBUTEROL 0.5-3(2.5)MG/3ML NEB HHN SCH ×5 (00:27→20:47)
[2016-09-08] MEDS: LORAZEPAM 2MG/ML CPJ IV PRN ×2 (00:59→05:08)
[2016-09-08] MEDS: MORPHINE SULFATE 4 MG/ML CPJ (NOT FOR IM USE) IV PRN ×2 (01:00→21:09)
[2016-09-08 05:16] LABS: BASOPHILS % 0.5 % (0.0-2.0); EOSINOPHILS % 2.4 % (0.0-5.0); LYMPHOCYTES % 15.8 % (20.0-50.0); MEAN CORPUSCULAR HEMOGLOBIN 26.9 pg (28.0-32.0); MEAN PLATELET VOLUME 8.8 fl (7.4-10.4); MONOCYTES % 9.4 % (2.0-8.0); NEUTROPHILS % 71.9 % (40.0-76.0); PLATELET 220 x1000/uL (130-400); RED BLOOD CELL COUNT 4.46 mill/uL (4.7-6.1); RED CELL DISTRIBUTION WIDTH 23.8 % (11.6-14.6)
[2016-09-08 05:37] LABS: CARBON DIOXIDE 24 mEq/L (21-32); CHLORIDE 105 mEq/L (98-107)
[2016-09-08] MEDS: PANTOPRAZOLE SODIUM 40 MG/VIAL IV SCH (09:55)
[2016-09-08] MEDS: AMLODIPINE 5MG TABLET GT SCH (09:55)
[2016-09-08] MEDS: AMIODARONE HCL 200 MG TABLET PO SCH (09:55)
[2016-09-08] MEDS: ENOXAPARIN 30MG/0.3ML SYR SUBCUT SCH ×2 (09:55→20:27)
[2016-09-08] MEDS: QUETIAPINE FUMARATE 100MG TABLET NG SCH ×2 (09:55→20:26)
[2016-09-08] MEDS: DEXT 5%/0.45% NACL KCL 20MEQ/L 1,000 ML IV SCH (10:32)
[2016-09-08] MEDS: LACTULOSE 20G/30ML UDC GT SCH (20:26)
[2016-09-09] MEDS: MORPHINE SULFATE 4 MG/ML CPJ (NOT FOR IM USE) IV PRN ×4 (00:29→16:19)
[2016-09-09] MEDS: LORAZEPAM 2MG/ML CPJ IV PRN ×8 (00:30→20:31)
[2016-09-09] MEDS: HALOPERIDOL LACTATE 5MG/ML VIAL IM PRN ×2 (00:30→10:45)
[2016-09-09] MEDS: METOCLOPRAMIDE HCL 10MG/2ML VIAL IV SCH ×4 (00:30→17:14)
[2016-09-09] MEDS: DEXT 5%/0.45% NACL KCL 20MEQ/L 1,000 ML IV SCH (00:38)
[2016-09-09] MEDS: IPRATROPIUM/ALBUTEROL 0.5-3(2.5)MG/3ML NEB HHN SCH ×6 (00:58→20:02)
[2016-09-09] MEDS: PANTOPRAZOLE SODIUM 40 MG/VIAL IV SCH (08:09)
[2016-09-09] MEDS: QUETIAPINE FUMARATE 100MG TABLET NG SCH (08:09)
[2016-09-09] MEDS: AMLODIPINE 5MG TABLET GT SCH (08:10)
[2016-09-09] MEDS: ENOXAPARIN 30MG/0.3ML SYR SUBCUT SCH (08:59)
[2016-09-09 21:04] VITALS: BP 136/98
[2017-02-20] MEDS ORDERED: CARV6.2548 PO (05:39)
[2017-02-20] MEDS ORDERED: HYDR-4134 PO (05:43)
[2017-02-20] MEDS ORDERED: FURO80TA3 PO (05:43)
[2017-02-20] MEDS ORDERED: ISOS10TA2 PO (05:43)
[2017-02-22] MEDS ORDERED: AMI2 PO (13:56)
[2017-02-22] MEDS ORDERED: LISI-186 PO ×2 (13:56)
[2017-02-22] MEDS ORDERED: ATOR20TA65 PO (13:56)
[2017-02-22] MEDS ORDERED: HYDR-4134 PO (13:56)
[2017-02-22] MEDS ORDERED: HYDR-4001 PO (13:56)
[2017-02-22] MEDS ORDERED: CARV6.2548 PO (13:56)
[2017-02-22] MEDS ORDERED: ISOS10TA2 PO (13:56)
[2017-02-22] MEDS ORDERED: ASPI-1158 PO (13:56)
[2017-02-22] MEDS ORDERED: FURO80TA3 PO (13:56)
== END 2016-09-09 20:30 | DRG 5 ==
LOC: ER 03:28 → EDBEDREQ 05:07 → MICUSO 06:47 → ENRESERV 07:00 → CANRESERV 07:00 → EDBEDREQ 07:16 → EDBEDREQSVC 07:16 → ENRESERV 07:17 → 5EST 08-26 15:35 → CVICU 09-02 23:55 → 5EST 09-08 08:05
PROVIDERS: ADMIT Internal Medicine; ATTEND Internal Medicine
PROC: 02HV33Z Insertion of Infusion Device into Superior Vena Cava, Percutaneous Approach (ICD-10-PCS; 2016-08-10)
PROC: B548ZZA Ultrasonography of Superior Vena Cava, Guidance (ICD-10-PCS; 2016-08-10)
PROC: B5181ZA Fluoroscopy of Superior Vena Cava using Low Osmolar Contrast, Guidance (ICD-10-PCS; 2016-08-10)
PROC: 0BJ08ZZ Inspection of Tracheobronchial Tree, Via Natural or Artificial Opening Endoscopic (ICD-10-PCS; 2016-08-20)
PROC: 0B110F4 Bypass Trachea to Cutaneous with Tracheostomy Device, Open Approach (ICD-10-PCS; 2016-08-25)
PROC: 0DH63UZ Insertion of Feeding Device into Stomach, Percutaneous Approach (ICD-10-PCS; 2016-08-25)
PROC: 5A1955Z Respiratory Ventilation, Greater than 96 Consecutive Hours (ICD-10-PCS; principal; 2016-08-25 15:00)
PROC: 02HV33Z Insertion of Infusion Device into Superior Vena Cava, Percutaneous Approach (ICD-10-PCS; 2016-08-28)
PROC: B548ZZA Ultrasonography of Superior Vena Cava, Guidance (ICD-10-PCS; 2016-08-28)
DX: A41.2 Sepsis due to unspecified staphylococcus (principal); J15.6 Pneumonia due to other Gram-negative bacteria; G92 Toxic encephalopathy; I50.43 Acute on chronic combined systolic (congestive) and diastolic (congestive) heart failure; N17.9 Acute kidney failure, unspecified; F10.231 Alcohol dependence with withdrawal delirium; E87.0 Hyperosmolality and hypernatremia; E87.4 Mixed disorder of acid-base balance; I13.0 Hypertensive heart and chronic kidney disease with heart failure and stage 1 through stage 4 chronic kidney disease, or unspecified chronic kidney disease; N18.3 Chronic kidney disease, stage 3 (moderate); J96.01 Acute respiratory failure with hypoxia; J96.02 Acute respiratory failure with hypercapnia; T80.211A Bloodstream infection due to central venous catheter, initial encounter; E11.22 Type 2 diabetes mellitus with diabetic chronic kidney disease; F14.20 Cocaine dependence, uncomplicated; J44.0 Chronic obstructive pulmonary disease with (acute) lower respiratory infection; E46 Unspecified protein-calorie malnutrition; J44.1 Chronic obstructive pulmonary disease with (acute) exacerbation; E66.01 Morbid (severe) obesity due to excess calories; F12.90 Cannabis use, unspecified, uncomplicated; L03.311 Cellulitis of abdominal wall; E78.00 Pure hypercholesterolemia, unspecified; E78.5 Hyperlipidemia, unspecified; F17.210 Nicotine dependence, cigarettes, uncomplicated; I49.9 Cardiac arrhythmia, unspecified; L03.119 Cellulitis of unspecified part of limb; N39.0 Urinary tract infection, site not specified; B95.7 Other staphylococcus as the cause of diseases classified elsewhere; E83.42 Hypomagnesemia; D64.9 Anemia, unspecified; I42.0 Dilated cardiomyopathy; Z60.2 Problems related to living alone; I45.4 Nonspecific intraventricular block; K29.70 Gastritis, unspecified, without bleeding; K44.9 Diaphragmatic hernia without obstruction or gangrene; K80.20 Calculus of gallbladder without cholecystitis without obstruction; N40.0 Benign prostatic hyperplasia without lower urinary tract symptoms; T83.83XA Hemorrhage due to genitourinary prosthetic devices, implants and grafts, initial encounter; K70.9 Alcoholic liver disease, unspecified; Y84.6 Urinary catheterization as the cause of abnormal reaction of the patient, or of later complication, without mention of misadventure at the time of the procedure; Y84.8 Other medical procedures as the cause of abnormal reaction of the patient, or of later complication, without mention of misadventure at the time of the procedure; Z16.24 Resistance to multiple antibiotics; Z79.82 Long term (current) use of aspirin; Z79.899 Other long term (current) drug therapy; Z80.9 Family history of malignant neoplasm, unspecified; Z91.14 Patient's other noncompliance with medication regimen; Z91.19 Patient's noncompliance with other medical treatment and regimen; Z93.1 Gastrostomy status; Z99.11 Dependence on respirator [ventilator] status; Z99.2 Dependence on renal dialysis; Z68.38 Body mass index [BMI] 38.0-38.9, adult
CPT/HCPCS: 31500; 36415; 36569; 36600; 51702; 70450; 70551; 71010; 74000; 76770; 76937; 78580; 80048; 80053; 80061; 80076; 80202; 80305; 81001; 82140; 82248; 82375; 82550; 82553; 82607; 82746; 82805; 83036; 83605; 83690; 83735; 83880; 84100; 84439; 84443; 84478; 84481; 84484; 85025; 85027; 85379; 85610; 85730; 86850; 86870; 86900; 87040; 87070; 87077; 87086; 87186; 93005; 93306; 93970; 94002; 94003; 94640; 96374; 96375; 97110; 97163; 97167; 97530; 99291; A4216; A6261; C1725; C9113; J0330; J0770; J1200; J1630; J1650; J1940; J1956; J2060; J2185; J2248; J2250; J2270; J2405; J2543; J2704; J2765; J3010; J3370; J3475; J3480; J3490; J7040; J7050; J7060; J7070; J7608; J7620; J7626; A4315

== ENCOUNTER 2016-09-18 20:29 | Emergency (ER) | payer MEDICAID ==
[~2016-09-18] VITALS: Ht 185.4 cm; Wt 116.0 kg
[2016-09-19 00:25] VITALS: BP 145/94
== END 2016-09-19 00:29 | disposition home or self-care (01) ==
LOC: ER 20:29
DX: K94.23 Gastrostomy malfunction (principal); I50.9 Heart failure, unspecified; Z87.891 Personal history of nicotine dependence; Z79.82 Long term (current) use of aspirin; Z93.0 Tracheostomy status
CPT/HCPCS: 99284; Z7610; 99283

== ENCOUNTER 2016-09-25 21:18 | Emergency (ER) | payer MEDICAID ==
[~2016-09-25] VITALS: Ht 190.5 cm; Wt 108.0 kg
[2016-09-25 21:26] VITALS: BP 110/82
== END 2016-09-25 22:34 | disposition left against medical advice (07) ==
LOC: ER 21:21
DX: Z53.21 Procedure and treatment not carried out due to patient leaving prior to being seen by health care provider (principal)

== ENCOUNTER 2017-05-25 17:28 | Emergency (ER) | payer OTHER ==
[~2017-05-25] VITALS: Ht 175.3 cm; Wt 110.0 kg
[~2017-05-25 17:28] MED LIST changes: +AMI2 PO; -AMIO100T4 PO; -AMLO5TAB88 PO; +ASPI-1158 PO; -ASPI-1159 PO; +CARV6.2548 PO; +ETOMIDATE 2MG/ML 10ML VIAL IV ONE; -FURO40TA5 PO; +FURO80TA3 PO; +HYDR-4001 PO; +HYDR-4134 PO; +ISOS10TA2 PO; +SUCCINYLCHOLINE CHLORIDE 200MG/10ML VIAL IV ONE
[2017-05-25] MEDS ORDERED: ASPIRIN 81MG TABLET PO ONE (17:45)
[2017-05-25] MEDS ORDERED: KETAMINE HCL 50 MG/ML 10ML ONE (17:50)
[2017-05-25] MEDS ORDERED: SODIUM CHLORIDE 0.9% 1000ML BAG (SEPSIS BOLUS) IV ONE (18:00)
[2017-05-25] MEDS ORDERED: LEVOFLOXACIN 750MG PREMIX 150 ML IV ONE (18:00)
[2017-05-25 18:11] LABS: BG BASE EXCESS -6.8 mmol/L (-2.0-2.0); BG BILEVEL POS AIRWAY PRESSURE 15/5; BG CARBOXYHEMOGLOBIN 2.2 % (0.5-1.5); BG DEOXYHEMOGLOBIN 1.1 % (0.0-5.0); BG HCO3 ACT 15.3 mmol/L (22.0-26.0); BG METHEMOGLOBIN 0.4 % (0.0-1.5); BG OXYGEN SATURATION 98.9 % (92.0-98.5); BG OXYHEMOGLOBIN 96.3 % (94.0-97.0); BG PCO2 23.7 mmHg (35.0-45.0); BG PH 7.429 (7.350-7.450); BG PO2 155.6 mmHg (75.0-100.0); BG SAMPLE SITE LEFT RADIAL; BG VENT MODE MASK - BIPAP; BG VENT RATE 14 set
[2017-05-25] MEDS ORDERED: ALBUTEROL (0.083%) 2.5MG/3ML NEB HHN STA (18:17)
[2017-05-25] MEDS ORDERED: IPRATROPIUM BROMIDE (0.02%) 0.5MG/2.5ML NEB HHN STA (18:17)
[2017-05-25] MEDS ORDERED: METHYLPREDNISOLONE SOD SUCC 125 MG/2 ML VIAL IV STA (18:17)
[2017-05-25 18:23] LABS: HEMATOCRIT. 46.7 % (42.0-52.0); HEMOGLOBIN. 14.6 g/dL (14.0-18.0); MEAN CORPUSCULAR HEMOGLOBIN 24.6 pg (28.0-32.0); MEAN CORPUSCULAR VOLUME 78.6 fL (80.0-94.0); MEAN PLATELET VOLUME 7.8 fl (7.4-10.4); PLATELET 284 x1000/uL (130-400); RED BLOOD CELL COUNT 5.94 mill/uL (4.7-6.1); RED CELL DISTRIBUTION WIDTH 21.4 % (11.6-14.6)
[2017-05-25 18:30] LABS: INR 1.4; PROTHROMBIN TIME 14.4 sec (9.4-11.6)
[2017-05-25 18:34] LABS: CHLORIDE 94 mEq/L (98-107)
[2017-05-25 19:00] LABS: PLATELET ESTIMATE NORMAL
[2017-05-25] MEDS ORDERED: INSULIN REGULAR (HUMULIN R) 300UNITS/3ML IV ONE (19:00)
[2017-05-25] MEDS ORDERED: SODIUM BICARBONATE 8.4% 1 MEQ/ML 50ML SYR IV ONE (19:00)
[2017-05-25] MEDS ORDERED: DEXTROSE 50% WATER 50ML SYRINGE IV ONE (19:00)
[2017-05-25] MEDS ORDERED: ALBUTEROL (0.083%) 2.5MG/3ML NEB HHN ONE (19:00)
[2017-05-25] MEDS ORDERED: CALCIUM CHLORIDE 1GM/10ML SYR IV ONE (19:00)
[2017-05-25] MEDS ORDERED: PIPERACILLIN SODIUM/TAZOBACTAM 4.5 G in DEXT 5% WATER 100 ML IV ONE (19:00)
[2017-05-25] MEDS ORDERED: VANCOMYCIN 1,500 MG in DEXT 5% WATER 250 ML IV STA (20:33)
[2017-05-25 22:05] LABS: *AMPHETAMINES SCREEN URINE NEGATIVE (NEGATIVE); *BARBITURATES SCREEN URINE NEGATIVE (NEGATIVE); *BENZODIAZEPINES SCREEN URINE NEGATIVE (NEGATIVE); *COCAINE SCREEN URINE PRESUMTIVE POSITIVE (NEGATIVE); CANNABINOID URINE SCREEN NEGATIVE (NEGATIVE); METHADONE URINE SCREEN NEGATIVE (NEGATIVE); OPIATES URINE SCREEN NEGATIVE (NEGATIVE); PHENCYCLIDINE URINE SCREEN NEGATIVE (NEGATIVE)
[2017-05-25] MEDS ORDERED: ACETAMINOPHEN 325MG TABLET PO PRN (23:15)
[2017-05-25] MEDS ORDERED: DIPHENHYDRAMINE 50MG/ML VIAL IV PRN (23:15)
[2017-05-25] MEDS ORDERED: LEVOFLOXACIN 500MG PREMIX 100 ML IV SCH (23:15)
[2017-05-25] MEDS ORDERED: LORAZEPAM 0.5MG TABLET PO PRN (23:15)
[2017-05-25] MEDS ORDERED: GUAIFENESIN 200MG/10ML SUGAR FREE UDC PO PRN (23:15)
[2017-05-25] MEDS ORDERED: ONDANSETRON HCL 4MG/2ML VIAL IV PRN (23:15)
[2017-05-25] MEDS ORDERED: MAGNESIUM/ALUMINUM HYDROXIDE/SIMETHICONE 30ML UDC PO PRN (23:15)
[2017-05-25] MEDS ORDERED: IPRATROPIUM/ALBUTEROL 0.5-3(2.5)MG/3ML NEB INH PRN (23:15)
[2017-05-25 23:20] VITALS: BP 99/74
[2017-05-25] MEDS ORDERED: SODIUM POLYSTYRENE SULFONATE 15 G/60 ML BOT PO NR (23:40)
[2017-05-26] MEDS ORDERED: IPRATROPIUM/ALBUTEROL 0.5-3(2.5)MG/3ML NEB HHN SCH (04:00)
[2017-05-26] MEDS ORDERED: SODIUM CHLORIDE 0.9% INJ 3ML FLUSH IVF SCH (06:00)
== END 2017-05-25 23:20 | disposition left against medical advice (07) ==
LOC: ER 18:33 → EDBEDREQ 19:03 → ER 23:20 → ENRESERV 23:38 → CANRESERV 23:38 → CANBEDREQ 23:42
DX: J44.0 Chronic obstructive pulmonary disease with (acute) lower respiratory infection (principal); K80.20 Calculus of gallbladder without cholecystitis without obstruction; J18.9 Pneumonia, unspecified organism; I11.0 Hypertensive heart disease with heart failure; I50.9 Heart failure, unspecified; R10.9 Unspecified abdominal pain; N17.9 Acute kidney failure, unspecified; E87.5 Hyperkalemia; E87.2 Acidosis; E80.6 Other disorders of bilirubin metabolism; Z59.0 Homelessness; Z93.0 Tracheostomy status; Z93.1 Gastrostomy status; Z79.82 Long term (current) use of aspirin; Z91.14 Patient's other noncompliance with medication regimen
CPT/HCPCS: 36415; 36600; 71045; 71250; 74176; 80053; 80305; 82375; 82805; 83605; 84484; 85025; 85610; 86850; 86900; 86901; 87040; 87086; 93005; 94640; 94644; 94660; 96365; 96375; 99291; G0482; J0330; J1815; J1956; J2543; J2930; J3490; J7030; J7040; J7611; Z7610; J3370; J7060

== ENCOUNTER 2017-06-09 02:20 | Emergency (ER) | payer OTHER ==
[~2017-06-09] VITALS: Ht 185.4 cm; Wt 113.0 kg
[~2017-06-09 02:20] MED LIST changes: -ETOMIDATE 2MG/ML 10ML VIAL IV ONE; -SUCCINYLCHOLINE CHLORIDE 200MG/10ML VIAL IV ONE
[2017-06-09] MEDS ORDERED: NAPROXEN 500MG TABLET PO ONE (03:30)
[2017-06-09 03:51] VITALS: BP 128/80
== END 2017-06-09 04:14 | disposition home or self-care (01) ==
LOC: ER 02:20
DX: G89.29 Other chronic pain (principal); M79.672 Pain in left foot; I11.0 Hypertensive heart disease with heart failure; I50.9 Heart failure, unspecified; Z59.0 Homelessness; Z79.82 Long term (current) use of aspirin
CPT/HCPCS: 99283; Z7610

== ENCOUNTER 2018-05-10 22:55 | Inpatient (IN) | payer MEDICAID, OTHER ==
[~2018-05-10] VITALS: Ht 185.4 cm; Wt 102.5 kg
[2018-05-10] MEDS ORDERED: ALBUTEROL (0.083%) 2.5MG/3ML NEB HHN STA (23:16)
[2018-05-10] MEDS ORDERED: ONDANSETRON HCL 4MG/2ML INJ IV STA (23:16)
[2018-05-10] MEDS ORDERED: MORPHINE SULFATE 4 MG/ML CPJ (NOT FOR IM USE) IV STA (23:16)
[2018-05-10] MEDS ORDERED: METHYLPREDNISOLONE SOD SUCC 125 MG/2 ML VIAL IV STA (23:16)
[2018-05-10] MEDS ORDERED: IPRATROPIUM BROMIDE (0.02%) 0.5MG/2.5ML NEB HHN STA (23:16)
[2018-05-10] MEDS ORDERED: ASPIRIN 81MG TABLET PO ONE (23:30)
[2018-05-10] MEDS ORDERED: NITROGLYCERIN OINT 1GM/INCH UDPKT TD ONE (23:30)
[2018-05-10] MEDS ORDERED: LEVOFLOXACIN 500MG PREMIX 100 ML IV ONE (23:45)
[2018-05-10] MEDS ORDERED: FUROSEMIDE 20MG/2ML VIAL IVP ONE (23:45)
[2018-05-10 23:49] LABS: CHLORIDE 106 mEq/L (98-107)
[2018-05-10 23:51] LABS: BASOPHILS % 1.4 % (0.0-2.0); EOSINOPHILS % 2.8 % (0.0-5.0); HEMATOCRIT. 46.9 % (42.0-52.0); LYMPHOCYTES % 13.2 % (20.0-50.0); MEAN CORPUSCULAR HEMOGLOBIN 26.4 pg (28.0-32.0); MEAN CORPUSCULAR VOLUME 82.2 fL (80.0-94.0); MEAN PLATELET VOLUME 8.1 fl (7.4-10.4); MONOCYTES % 10.3 % (2.0-8.0); NEUTROPHILS % 72.3 % (40.0-76.0); PLATELET 214 x1000/uL (130-400); RED CELL DISTRIBUTION WIDTH 20.6 % (11.6-14.6)
[2018-05-10 23:53] LABS: ETHANOL BLOOD < 10 mg/dL
[2018-05-10 23:57] LABS: INR 1.4; PROTHROMBIN TIME 13.8 sec (9.1-11.1)
[2018-05-11] MEDS ORDERED: MAGNESIUM/ALUMINUM HYDROXIDE/SIMETHICONE 30ML UDC PO PRN (00:15)
[2018-05-11] MEDS ORDERED: ONDANSETRON HCL 4MG/2ML INJ IV PRN (00:15)
[2018-05-11] MEDS ORDERED: CLONIDINE 0.1MG TABLET PO PRN (00:15)
[2018-05-11] MEDS ORDERED: ACETAMINOPHEN 325MG TABLET PO PRN (00:15)
[2018-05-11 01:34] LABS: CHLORIDE 106 mEq/L (98-107)
[2018-05-11 02:42] LABS: CLARITY URINE CLEAR (CLEAR); COLOR URINE YELLOW (YELLOW); KETONES URINE NEGATIVE (NEGATIVE); LEUKOCYTE ESTERASE URINE NEGATIVE (NEGATIVE); NITRITE URINE NEGATIVE (NEGATIVE); OCCULT BLOOD URINE NEGATIVE (NEGATIVE); PROTEIN URINE NEGATIVE (NEGATIVE); SPECIFIC GRAVITY URINE 1.009 (1.005-1.030); UROBILINOGEN URINE 0.2 E.U./dL (0.2-1.0)
[2018-05-11 03:08] LABS: *AMPHETAMINES SCREEN URINE NEGATIVE (NEGATIVE); *BARBITURATES SCREEN URINE NEGATIVE (NEGATIVE); *BENZODIAZEPINES SCREEN URINE NEGATIVE (NEGATIVE); *COCAINE SCREEN URINE PRESUMTIVE POSITIVE (NEGATIVE)
[2018-05-11 03:09] LABS: CANNABINOID URINE SCREEN NEGATIVE (NEGATIVE); METHADONE URINE SCREEN NEGATIVE (NEGATIVE); OPIATES URINE SCREEN PRESUMTIVE POSITIVE (NEGATIVE); PHENCYCLIDINE URINE SCREEN NEGATIVE (NEGATIVE)
[2018-05-11 09:30] VITALS: BP 108/66
[2018-05-11 10:57] VITALS: BP 108/66
[2018-05-11 12:00] VITALS: BP 126/77
[2018-05-11] MEDS: FUROSEMIDE 40MG/4ML VIAL IVP SCH ×2 (12:30→17:51)
[2018-05-11] MEDS: POTASSIUM CHLORIDE 20MEQ TABLET SR PO SCH (12:31)
[2018-05-11] MEDS: ASPIRIN 81MG EC TABLET PO SCH (12:31)
[2018-05-11] MEDS: ENOXAPARIN 40MG/0.4ML SYR SUBCUT SCH (12:32)
[2018-05-11] MEDS: HYDROCODONE/ACETAMINOPHEN 5/325MG TABLET PO PRN ×2 (12:33→23:35)
[2018-05-11 16:00] VITALS: BP 108/67
[2018-05-11] MEDS: BUDESONIDE 0.5MG/2ML NEB HHN SCH ×2 (16:00→20:26)
[2018-05-11] MEDS: IPRATROPIUM/ALBUTEROL 0.5-3(2.5)MG/3ML NEB INH PRN ×2 (17:16→20:25)
[2018-05-11 20:42] VITALS: BP 98/54
[2018-05-11] MEDS: AMLODIPINE 5MG TABLET PO SCH (20:50)
[2018-05-11 23:35] VITALS: BP 110/70
[2018-05-12] MEDS: IPRATROPIUM/ALBUTEROL 0.5-3(2.5)MG/3ML NEB INH PRN ×5 (00:14→21:31)
[2018-05-12 04:50] VITALS: BP 101/67
[2018-05-12] MEDS: FUROSEMIDE 40MG/4ML VIAL IVP SCH ×2 (07:15→14:55)
[2018-05-12 08:00] VITALS: BP 98/68
[2018-05-12] MEDS: AMLODIPINE 5MG TABLET PO SCH ×2 (09:00→21:00)
[2018-05-12] MEDS: POTASSIUM CHLORIDE 20MEQ TABLET SR PO SCH (09:23)
[2018-05-12] MEDS: ASPIRIN 81MG EC TABLET PO SCH (09:23)
[2018-05-12] MEDS: ENOXAPARIN 40MG/0.4ML SYR SUBCUT SCH (09:23)
[2018-05-12] MEDS: DOCUSATE SODIUM 100MG CAPSULE PO PRN (09:23)
[2018-05-12] MEDS: BUDESONIDE 0.5MG/2ML NEB HHN SCH ×2 (09:27→21:29)
[2018-05-12 12:00] VITALS: BP 120/76
[2018-05-12 16:03] VITALS: BP 112/90
[2018-05-12 20:00] VITALS: BP 107/72
[2018-05-13] VITALS (7 sets, daily range): BP systolic 90–120; BP diastolic 51–75
[2018-05-13] MEDS: HYDROCODONE/ACETAMINOPHEN 5/325MG TABLET PO PRN ×4 (00:31→23:31)
[2018-05-13] MEDS: IPRATROPIUM/ALBUTEROL 0.5-3(2.5)MG/3ML NEB INH PRN ×4 (00:35→20:35)
[2018-05-13] MEDS: FUROSEMIDE 40MG/4ML VIAL IVP SCH (06:21)
[2018-05-13 07:24] LABS: BASOPHILS % 0.8 % (0.0-2.0); EOSINOPHILS % 1.6 % (0.0-5.0); HEMATOCRIT. 39.8 % (42.0-52.0); HEMOGLOBIN. 12.5 g/dL (14.0-18.0); LYMPHOCYTES % 7.7 % (20.0-50.0); MEAN CORPUSCULAR HEMOGLOBIN 26.2 pg (28.0-32.0); MEAN CORPUSCULAR VOLUME 83.2 fL (80.0-94.0); MEAN PLATELET VOLUME 8.3 fl (7.4-10.4); MONOCYTES % 8.1 % (2.0-8.0); NEUTROPHILS % 81.8 % (40.0-76.0); PLATELET 186 x1000/uL (130-400); RED BLOOD CELL COUNT 4.78 mill/uL (4.7-6.1); RED CELL DISTRIBUTION WIDTH 21.5 % (11.6-14.6)
[2018-05-13] MEDS: BUDESONIDE 0.5MG/2ML NEB HHN SCH ×2 (08:22→20:35)
[2018-05-13] MEDS: ENOXAPARIN 40MG/0.4ML SYR SUBCUT SCH (08:54)
[2018-05-13] MEDS: AMLODIPINE 5MG TABLET PO SCH ×2 (08:55→21:00)
[2018-05-13] MEDS: ASPIRIN 81MG EC TABLET PO SCH (08:55)
[2018-05-13] MEDS: DOCUSATE SODIUM 100MG CAPSULE PO PRN (08:55)
[2018-05-13] MEDS: POTASSIUM CHLORIDE 20MEQ TABLET SR PO SCH (08:55)
[2018-05-13] MEDS ORDERED: POTA20TA82 MT (19:16)
[2018-05-14 00:34] VITALS: BP 99/71
[2018-05-14] MEDS: IPRATROPIUM/ALBUTEROL 0.5-3(2.5)MG/3ML NEB INH PRN ×2 (02:25→12:05)
[2018-05-14 04:00] VITALS: BP 106/70
[2018-05-14 07:10] LABS: BASOPHILS % 1.3 % (0.0-2.0); EOSINOPHILS % 2.7 % (0.0-5.0); HEMATOCRIT. 40.8 % (42.0-52.0); HEMOGLOBIN. 12.9 g/dL (14.0-18.0); LYMPHOCYTES % 8.8 % (20.0-50.0); MEAN CORPUSCULAR HEMOGLOBIN 26.1 pg (28.0-32.0); MEAN CORPUSCULAR VOLUME 82.5 fL (80.0-94.0); MEAN PLATELET VOLUME 8.2 fl (7.4-10.4); MONOCYTES % 11.3 % (2.0-8.0); NEUTROPHILS % 75.9 % (40.0-76.0); PLATELET 188 x1000/uL (130-400); RED BLOOD CELL COUNT 4.94 mill/uL (4.7-6.1); RED CELL DISTRIBUTION WIDTH 21.3 % (11.6-14.6)
[2018-05-14 07:15] LABS: CHLORIDE 97 mEq/L (98-107)
[2018-05-14 08:00] VITALS: BP 112/72
[2018-05-14] MEDS: POTASSIUM CHLORIDE 20MEQ TABLET SR PO SCH (08:49)
[2018-05-14] MEDS: DILTIAZEM HCL 30MG TABLET PO SCH ×2 (08:49→12:00)
[2018-05-14] MEDS: ASPIRIN 81MG EC TABLET PO SCH (08:49)
[2018-05-14] MEDS ORDERED: FUROSEMIDE 40MG/4ML VIAL IVP SCH (09:00)
[2018-05-14] MEDS: BUDESONIDE 0.5MG/2ML NEB HHN SCH (10:30)
[2018-05-14] MEDS: ENOXAPARIN 40MG/0.4ML SYR SUBCUT SCH (11:00)
[2018-05-14 12:00] VITALS: BP 99/65
== END 2018-05-14 16:30 | disposition home or self-care (01) | DRG 816 ==
LOC: ER 22:55 → 7WST 23:37 → EDBEDREQ 23:40 → EDBEDREQTM 23:40 → ENRESERV 05-11 07:14
PROVIDERS: ADMIT Internal Medicine; ATTEND Internal Medicine
DX: T40.5X1A Poisoning by cocaine, accidental (unintentional), initial encounter (principal); J96.00 Acute respiratory failure, unspecified whether with hypoxia or hypercapnia; I50.23 Acute on chronic systolic (congestive) heart failure; I47.2 Ventricular tachycardia; J84.9 Interstitial pulmonary disease, unspecified; I42.9 Cardiomyopathy, unspecified; E87.2 Acidosis; B86 Scabies; E78.5 Hyperlipidemia, unspecified; I13.0 Hypertensive heart and chronic kidney disease with heart failure and stage 1 through stage 4 chronic kidney disease, or unspecified chronic kidney disease; N18.9 Chronic kidney disease, unspecified; F17.210 Nicotine dependence, cigarettes, uncomplicated; F14.10 Cocaine abuse, uncomplicated; Z71.51 Drug abuse counseling and surveillance of drug abuser; Y92.89 Other specified places as the place of occurrence of the external cause; Z59.0 Homelessness; Z91.14 Patient's other noncompliance with medication regimen; Z79.899 Other long term (current) drug therapy; Z79.82 Long term (current) use of aspirin
CPT/HCPCS: 36415; 71045; 80048; 80305; 80320; 82962; 83605; 83735; 83880; 84145; 84443; 84484; 93005; 93970; 94644; 96365; 96375; 97162; 99291; J1650; J1940; J1956; J2270; J2405; J2930; J7611; J7620; J7626; G0480

== ENCOUNTER 2018-05-23 10:30 | Inpatient (IN) | payer MEDICAID, OTHER ==
[~2018-05-23] VITALS: Ht 172.7 cm; Wt 75.3 kg
[~2018-05-23 10:30] MED LIST changes: -AMI2 PO; -CARV6.2548 PO; -HYDR-4134 PO; -ISOS10TA2 PO; -LISI-186 PO; +POTA20TA82 MT
[2018-05-23 11:59] LABS: HEMATOCRIT. 43.3 % (42.0-52.0); HEMOGLOBIN. 13.7 g/dL (14.0-18.0); MEAN CORPUSCULAR HEMOGLOBIN 26.2 pg (28.0-32.0); MEAN PLATELET VOLUME 7.6 fl (7.4-10.4); PLATELET 183 x1000/uL (130-400); RED BLOOD CELL COUNT 5.22 mill/uL (4.7-6.1)
[2018-05-23 12:01] LABS: BG CARBOXYHEMOGLOBIN 1.3 % (0.5-1.5); BG DEOXYHEMOGLOBIN 2.6 % (0.0-5.0); BG FRACTION INSPIRED OXYGEN 28; BG HCO3 ACT 21.1 mmol/L (22.0-26.0); BG METHEMOGLOBIN 0.4 % (0.0-1.5); BG OXYGEN SATURATION 97.4 % (92.0-98.5); BG OXYHEMOGLOBIN 95.7 % (94.0-97.0); BG PCO2 28.2 mmHg (35.0-45.0); BG PH 7.491 (7.350-7.450); BG PO2 97.7 mmHg (75.0-100.0); BG SAMPLE SITE RIGHT BRACHIAL; BG TOTAL HEMOGLOBIN 14.2 g/dL (12.0-18.0); BG VENT MODE NASAL CANNULA
[2018-05-23 12:02] LABS: CHLORIDE 108 mEq/L (98-107)
[2018-05-23 12:36] LABS: PLATELET ESTIMATE NORMAL
[2018-05-23] MEDS ORDERED: FUROSEMIDE 40MG/4ML VIAL IVP SCH (12:45)
[2018-05-23] MEDS ORDERED: ENALAPRIL 2.5MG/2ML VIAL 2ML IV ONE (12:45)
[2018-05-23] MEDS ORDERED: ACETAMINOPHEN 325MG TABLET PO PRN (13:15)
[2018-05-23] MEDS ORDERED: ONDANSETRON HCL 4MG/2ML INJ IV PRN (13:15)
[2018-05-24] VITALS (7 sets, daily range): BP systolic 90–149; BP diastolic 46–88
[2018-05-24 08:47] LABS: EOSINOPHILS % 3.5 % (0.0-5.0); HEMATOCRIT. 41.4 % (42.0-52.0); HEMOGLOBIN. 13.3 g/dL (14.0-18.0); LYMPHOCYTES % 10.1 % (20.0-50.0); MEAN CORPUSCULAR HEMOGLOBIN 26.3 pg (28.0-32.0); MEAN CORPUSCULAR VOLUME 81.8 fL (80.0-94.0); MEAN PLATELET VOLUME 7.8 fl (7.4-10.4); MONOCYTES % 11.6 % (2.0-8.0); NEUTROPHILS % 72.8 % (40.0-76.0); PLATELET 195 x1000/uL (130-400); RED BLOOD CELL COUNT 5.06 mill/uL (4.7-6.1); RED CELL DISTRIBUTION WIDTH 21.1 % (11.6-14.6)
[2018-05-24 08:52] LABS: CHLORIDE 108 mEq/L (98-107)
[2018-05-24] MEDS: FUROSEMIDE 40MG/4ML VIAL IVP SCH ×2 (09:00→17:00)
[2018-05-24] MEDS: LOSARTAN POTASSIUM 25 MG TABLET PO SCH (09:00)
[2018-05-24] MEDS ORDERED: CARVEDILOL 6.25 MG TABLET PO SCH (09:00)
[2018-05-24] MEDS: ENOXAPARIN 40MG/0.4ML SYR SUBCUT SCH (09:00)
[2018-05-24] MEDS: IPRATROPIUM/ALBUTEROL 0.5-3(2.5)MG/3ML NEB HHN SCH ×3 (12:07→20:57)
[2018-05-24] MEDS: AMIODARONE HCL 200 MG TABLET PO SCH ×2 (17:00→20:44)
[2018-05-24] MEDS ORDERED: HYDROCODONE/ACETAMINOPHEN 5/325MG TABLET PO PRN (20:15)
[2018-05-24] MEDS ORDERED: ZOLPIDEM TARTRATE 5MG TABLET PO PRN (20:15)
[2018-05-25 00:23] VITALS: BP 96/70
[2018-05-25] MEDS: IPRATROPIUM/ALBUTEROL 0.5-3(2.5)MG/3ML NEB HHN SCH ×5 (00:33→15:26)
[2018-05-25 04:00] VITALS: BP 90/51
[2018-05-25 07:07] LABS: BASOPHILS % 2.1 % (0.0-2.0); EOSINOPHILS % 5.1 % (0.0-5.0); HEMATOCRIT. 39.6 % (42.0-52.0); HEMOGLOBIN. 12.8 g/dL (14.0-18.0); LYMPHOCYTES % 12.4 % (20.0-50.0); MEAN CORPUSCULAR HEMOGLOBIN 26.8 pg (28.0-32.0); MEAN CORPUSCULAR VOLUME 82.8 fL (80.0-94.0); MEAN PLATELET VOLUME 8.1 fl (7.4-10.4); MONOCYTES % 11.6 % (2.0-8.0); NEUTROPHILS % 68.8 % (40.0-76.0); PLATELET 192 x1000/uL (130-400); RED BLOOD CELL COUNT 4.79 mill/uL (4.7-6.1); RED CELL DISTRIBUTION WIDTH 21.1 % (11.6-14.6)
[2018-05-25 07:30] VITALS: BP 92/55
[2018-05-25] MEDS: FUROSEMIDE 40MG/4ML VIAL IVP SCH ×2 (08:45→17:08)
[2018-05-25] MEDS: LOSARTAN POTASSIUM 25 MG TABLET PO SCH (08:45)
[2018-05-25] MEDS: AMIODARONE HCL 200 MG TABLET PO SCH (08:46)
[2018-05-25] MEDS: ENOXAPARIN 40MG/0.4ML SYR SUBCUT SCH (08:46)
[2018-05-25 12:00] VITALS: BP 98/57
[2018-05-25 14:43] LABS: *AMPHETAMINES SCREEN URINE NEGATIVE (NEGATIVE); *BARBITURATES SCREEN URINE NEGATIVE (NEGATIVE); *BENZODIAZEPINES SCREEN URINE NEGATIVE (NEGATIVE); *COCAINE SCREEN URINE PRESUMTIVE POSITIVE (NEGATIVE)
[2018-05-25 14:44] LABS: CANNABINOID URINE SCREEN NEGATIVE (NEGATIVE); METHADONE URINE SCREEN NEGATIVE (NEGATIVE); OPIATES URINE SCREEN PRESUMTIVE POSITIVE (NEGATIVE); PHENCYCLIDINE URINE SCREEN NEGATIVE (NEGATIVE)
[2018-05-25] MEDS ORDERED: IPRATROPIUM/ALBUTEROL 0.5-3(2.5)MG/3ML NEB HHN PRN (15:30)
[2018-05-25 16:00] VITALS: BP 99/59
[2018-05-25 16:37] VITALS: BP 99/59
== END 2018-05-25 18:30 | disposition home or self-care (01) | DRG 469 ==
LOC: ER 10:30 → 7WST 12:51 → EDBEDREQTM 13:01 → EDBEDREQ 13:01 → ENRESERV 19:08 → CANRESERV 19:08 → EDBEDREQSVC 19:46 → EDBEDREQ 19:48 → EDBEDREQTM 19:51 → ENRESERV 05-24 02:15
PROVIDERS: ADMIT Internal Medicine; ATTEND Internal Medicine
PROC: 5A09357 Assistance with Respiratory Ventilation, Less than 24 Consecutive Hours, Continuous Positive Airway Pressure (ICD-10-PCS; principal; 2018-05-23)
DX: N17.9 Acute kidney failure, unspecified (principal); J96.01 Acute respiratory failure with hypoxia; E87.3 Alkalosis; E44.0 Moderate protein-calorie malnutrition; I50.23 Acute on chronic systolic (congestive) heart failure; E87.8 Other disorders of electrolyte and fluid balance, not elsewhere classified; E78.5 Hyperlipidemia, unspecified; F14.90 Cocaine use, unspecified, uncomplicated; I27.20 Pulmonary hypertension, unspecified; J44.1 Chronic obstructive pulmonary disease with (acute) exacerbation; I25.5 Ischemic cardiomyopathy; I25.10 Atherosclerotic heart disease of native coronary artery without angina pectoris; N18.9 Chronic kidney disease, unspecified; F17.210 Nicotine dependence, cigarettes, uncomplicated; I36.1 Nonrheumatic tricuspid (valve) insufficiency; I13.0 Hypertensive heart and chronic kidney disease with heart failure and stage 1 through stage 4 chronic kidney disease, or unspecified chronic kidney disease; I25.2 Old myocardial infarction; Z71.6 Tobacco abuse counseling; Z59.0 Homelessness; Z91.19 Patient's noncompliance with other medical treatment and regimen; Z68.25 Body mass index [BMI] 25.0-25.9, adult
CPT/HCPCS: 36415; 36600; 71045; 80048; 80305; 82375; 82805; 83880; 84484; 93005; 93306; 96374; 96375; 99291; A6261; C1893; J1650; J1940; J3490; J7620

== ENCOUNTER 2018-06-22 20:12 | Inpatient (IN) | payer OTHER ==
[~2018-06-22] VITALS: Ht 185.4 cm; Wt 108.4 kg
[~2018-06-22 20:12] MED LIST changes: -Tramadol Hcl PO
[2018-06-22] MEDS ORDERED: MORPHINE SULFATE 4 MG/ML CPJ (NOT FOR IM USE) IV STA (20:49)
[2018-06-22] MEDS ORDERED: ONDANSETRON HCL 4MG/2ML INJ IV STA (20:49)
[2018-06-22 20:54] LABS: BASOPHILS % 0.5 % (0.0-2.0); EOSINOPHILS % 1.6 % (0.0-5.0); HEMATOCRIT. 43.3 % (42.0-52.0); HEMOGLOBIN. 13.9 g/dL (14.0-18.0); LYMPHOCYTES % 7.2 % (20.0-50.0); MEAN CORPUSCULAR HEMOGLOBIN 26.5 pg (28.0-32.0); MEAN CORPUSCULAR VOLUME 82.2 fL (80.0-94.0); MEAN PLATELET VOLUME 7.5 fl (7.4-10.4); MONOCYTES % 14.5 % (2.0-8.0); NEUTROPHILS % 76.2 % (40.0-76.0); PLATELET 247 x1000/uL (130-400); RED BLOOD CELL COUNT 5.27 mill/uL (4.7-6.1); RED CELL DISTRIBUTION WIDTH 19.7 % (11.6-14.6)
[2018-06-22 20:59] LABS: CHLORIDE 101 mEq/L (98-107)
[2018-06-22] MEDS ORDERED: ASPIRIN 81MG TABLET PO ONE (21:00)
[2018-06-22] MEDS ORDERED: NITROGLYCERIN OINT 1GM/INCH UDPKT TD ONE (21:00)
[2018-06-22] MEDS ORDERED: FUROSEMIDE 40MG/4ML VIAL IV ONE (21:00)
[2018-06-22 21:02] LABS: ETHANOL BLOOD < 10 mg/dL
[2018-06-23] VITALS: BP 103/59
[2018-06-23] MEDS ORDERED: ONDANSETRON HCL 4MG/2ML INJ IV PRN (00:45)
[2018-06-23 02:11] LABS: *AMPHETAMINES SCREEN URINE NEGATIVE (NEGATIVE); *BARBITURATES SCREEN URINE NEGATIVE (NEGATIVE)
[2018-06-23 02:13] LABS: *BENZODIAZEPINES SCREEN URINE NEGATIVE (NEGATIVE); *COCAINE SCREEN URINE PRESUMTIVE POSITIVE (NEGATIVE); CANNABINOID URINE SCREEN NEGATIVE (NEGATIVE); METHADONE URINE SCREEN NEGATIVE (NEGATIVE); OPIATES URINE SCREEN PRESUMTIVE POSITIVE (NEGATIVE); PHENCYCLIDINE URINE SCREEN NEGATIVE (NEGATIVE)
[2018-06-23 04:00] VITALS: BP 92/52
[2018-06-23] MEDS ORDERED: IPRATROPIUM/ALBUTEROL 0.5-3(2.5)MG/3ML NEB HHN PRN (04:15)
[2018-06-23] MEDS: IPRATROPIUM/ALBUTEROL 0.5-3(2.5)MG/3ML NEB HHN SCH ×5 (04:32→21:19)
[2018-06-23 06:43] LABS: HEMATOCRIT. 41.1 % (42.0-52.0); HEMOGLOBIN. 13.1 g/dL (14.0-18.0); MEAN CORPUSCULAR HEMOGLOBIN 26.5 pg (28.0-32.0); MEAN CORPUSCULAR VOLUME 83.1 fL (80.0-94.0); PLATELET 233 x1000/uL (130-400); RED BLOOD CELL COUNT 4.95 mill/uL (4.7-6.1); RED CELL DISTRIBUTION WIDTH 19.6 % (11.6-14.6)
[2018-06-23] MEDS: HYDROCODONE/ACETAMINOPHEN 10/325MG TABLET PO PRN ×2 (07:44→17:26)
[2018-06-23 08:00] VITALS: BP_SYST 104; BP_DIAS 70; BP_DIAS 73
[2018-06-23] MEDS ORDERED: FUROSEMIDE 40MG/4ML VIAL IVP SCH (09:00)
[2018-06-23] MEDS ORDERED: ENOXAPARIN 40MG/0.4ML SYR SUBCUT SCH (09:00)
[2018-06-23] MEDS: ASPIRIN 325MG TABLET PO SCH (09:09)
[2018-06-23] MEDS: LISINOPRIL 5MG TABLET PO SCH (09:09)
[2018-06-23] MEDS: CARVEDILOL 3.125 MG TABLET PO SCH ×2 (09:10→20:53)
[2018-06-23] MEDS: ENOXAPARIN 30MG/0.3ML SYR SUBCUT SCH ×2 (09:13→20:51)
[2018-06-23 09:42] LABS: ATYPICAL LYMPHOCYTES 1; PLATELET ESTIMATE NORMAL
[2018-06-23 12:00] VITALS: BP 105/63
[2018-06-23] MEDS ORDERED: INFLUENZA VIRUS VACCINE(AFLURIA) 0.5ML SYR IM ONE (12:00)
[2018-06-23] MEDS: NICOTINE 7MG PATCH TD SCH (14:19)
[2018-06-23 16:00] VITALS: BP 92/52
[2018-06-23 20:00] VITALS: BP 98/58
[2018-06-23] MEDS: FUROSEMIDE 40MG/4ML VIAL IVP SCH (20:53)
[2018-06-24] VITALS: BP 100/57
[2018-06-24] MEDS: IPRATROPIUM/ALBUTEROL 0.5-3(2.5)MG/3ML NEB HHN SCH ×6 (01:55→21:35)
[2018-06-24] MEDS: HYDROCODONE/ACETAMINOPHEN 10/325MG TABLET PO PRN ×4 (03:55→20:47)
[2018-06-24 04:00] VITALS: BP 111/72
[2018-06-24 07:25] LABS: BASOPHILS % 0.9 % (0.0-2.0); EOSINOPHILS % 3.3 % (0.0-5.0); HEMATOCRIT. 40.1 % (42.0-52.0); HEMOGLOBIN. 12.8 g/dL (14.0-18.0); LYMPHOCYTES % 9.5 % (20.0-50.0); MEAN CORPUSCULAR HEMOGLOBIN 26.3 pg (28.0-32.0); MEAN CORPUSCULAR VOLUME 82.7 fL (80.0-94.0); MEAN PLATELET VOLUME 7.6 fl (7.4-10.4); MONOCYTES % 13.8 % (2.0-8.0); NEUTROPHILS % 72.5 % (40.0-76.0); PLATELET 218 x1000/uL (130-400); RED BLOOD CELL COUNT 4.85 mill/uL (4.7-6.1); RED CELL DISTRIBUTION WIDTH 19.7 % (11.6-14.6)
[2018-06-24 08:00] VITALS: BP 103/60
[2018-06-24] MEDS: LISINOPRIL 5MG TABLET PO SCH (09:00)
[2018-06-24] MEDS: CARVEDILOL 3.125 MG TABLET PO SCH ×2 (09:00→20:28)
[2018-06-24] MEDS: ASPIRIN 325MG TABLET PO SCH (09:14)
[2018-06-24] MEDS: ENOXAPARIN 30MG/0.3ML SYR SUBCUT SCH ×2 (09:14→20:27)
[2018-06-24] MEDS: NICOTINE 7MG PATCH TD SCH (09:15)
[2018-06-24 12:00] VITALS: BP 95/55
[2018-06-24] MEDS: FUROSEMIDE 40MG/4ML VIAL IVP SCH ×2 (12:46→20:27)
[2018-06-24 16:00] VITALS: BP 101/60
[2018-06-24 20:00] VITALS: BP 112/77
[2018-06-25] VITALS: BP 118/71
[2018-06-25] MEDS: HYDROCODONE/ACETAMINOPHEN 10/325MG TABLET PO PRN ×5 (01:28→21:43)
[2018-06-25] MEDS: IPRATROPIUM/ALBUTEROL 0.5-3(2.5)MG/3ML NEB HHN SCH ×4 (01:50→16:42)
[2018-06-25 04:00] VITALS: BP 112/61
[2018-06-25 06:29] LABS: HEMATOCRIT. 40.8 % (42.0-52.0); HEMOGLOBIN. 13.2 g/dL (14.0-18.0); MEAN CORPUSCULAR HEMOGLOBIN 26.8 pg (28.0-32.0); MEAN CORPUSCULAR VOLUME 82.4 fL (80.0-94.0); MEAN PLATELET VOLUME 7.7 fl (7.4-10.4); PLATELET 239 x1000/uL (130-400); RED BLOOD CELL COUNT 4.95 mill/uL (4.7-6.1); RED CELL DISTRIBUTION WIDTH 19.6 % (11.6-14.6)
[2018-06-25 06:49] LABS: CHLORIDE 97 mEq/L (98-107)
[2018-06-25 08:00] VITALS: BP 115/80
[2018-06-25] MEDS: FUROSEMIDE 40MG/4ML VIAL IVP SCH ×2 (09:03→20:25)
[2018-06-25] MEDS: ASPIRIN 325MG TABLET PO SCH (09:03)
[2018-06-25] MEDS: ENOXAPARIN 30MG/0.3ML SYR SUBCUT SCH ×2 (09:04→20:25)
[2018-06-25] MEDS: CARVEDILOL 3.125 MG TABLET PO SCH ×2 (09:04→20:25)
[2018-06-25] MEDS: LISINOPRIL 5MG TABLET PO SCH (09:04)
[2018-06-25] MEDS: NICOTINE 7MG PATCH TD SCH (09:05)
[2018-06-25 12:00] VITALS: BP 100/67
[2018-06-25 12:11] LABS: PLATELET ESTIMATE NORMAL
[2018-06-25 16:00] VITALS: BP 91/56
[2018-06-25 20:00] VITALS: BP 104/72
[2018-06-26] VITALS: BP 101/68
[2018-06-26] MEDS: IPRATROPIUM/ALBUTEROL 0.5-3(2.5)MG/3ML NEB HHN SCH ×4 (00:32→12:00)
[2018-06-26] MEDS: HYDROCODONE/ACETAMINOPHEN 10/325MG TABLET PO PRN ×2 (03:43→09:02)
[2018-06-26 04:00] VITALS: BP 95/61
[2018-06-26 08:00] VITALS: BP 99/60
[2018-06-26] MEDS: CARVEDILOL 3.125 MG TABLET PO SCH (08:52)
[2018-06-26] MEDS: LISINOPRIL 5MG TABLET PO SCH (08:53)
[2018-06-26] MEDS: FUROSEMIDE 40MG/4ML VIAL IVP SCH (09:01)
[2018-06-26] MEDS: ASPIRIN 325MG TABLET PO SCH (09:01)
[2018-06-26] MEDS: NICOTINE 7MG PATCH TD SCH (09:02)
[2018-06-26] MEDS: ENOXAPARIN 30MG/0.3ML SYR SUBCUT SCH (09:02)
[2018-06-26 12:00] VITALS: BP 102/72
[2018-06-26 15:11] VITALS: BP 102/72
== END 2018-06-26 16:47 | disposition home or self-care (01) | DRG 194 ==
LOC: ER 21:07 → 5WST 21:11 → ENRESERV 22:21
PROVIDERS: ADMIT Internal Medicine; ATTEND Internal Medicine
DX: I13.0 Hypertensive heart and chronic kidney disease with heart failure and stage 1 through stage 4 chronic kidney disease, or unspecified chronic kidney disease (principal); E43 Unspecified severe protein-calorie malnutrition; N17.9 Acute kidney failure, unspecified; I50.23 Acute on chronic systolic (congestive) heart failure; N18.9 Chronic kidney disease, unspecified; E87.1 Hypo-osmolality and hyponatremia; E66.9 Obesity, unspecified; R09.02 Hypoxemia; D64.9 Anemia, unspecified; J44.9 Chronic obstructive pulmonary disease, unspecified; F14.90 Cocaine use, unspecified, uncomplicated; E78.5 Hyperlipidemia, unspecified; F17.210 Nicotine dependence, cigarettes, uncomplicated; I07.1 Rheumatic tricuspid insufficiency; I25.10 Atherosclerotic heart disease of native coronary artery without angina pectoris; I27.20 Pulmonary hypertension, unspecified; I25.2 Old myocardial infarction; Z79.1 Long term (current) use of non-steroidal anti-inflammatories (NSAID); Z79.82 Long term (current) use of aspirin; Z79.899 Other long term (current) drug therapy; Z91.19 Patient's noncompliance with other medical treatment and regimen; Z59.0 Homelessness; Z68.31 Body mass index [BMI] 31.0-31.9, adult
CPT/HCPCS: 36415; 71045; 73070; 73100; 80048; 80305; 80320; 83880; 84484; 90686; 93005; 93306; 94640; 99291; A6261; J1650; J1940; J2270; J2405; J7620; G0480

== ENCOUNTER 2018-07-13 19:17 | Inpatient (IN) | payer MEDICAID, OTHER ==
[~2018-07-13] VITALS: Ht 185.4 cm; Wt 110.0 kg
[2018-07-13] MEDS ORDERED: MORPHINE SULFATE 4 MG/ML CPJ (NOT FOR IM USE) IV STA (21:13)
[2018-07-13] MEDS ORDERED: ONDANSETRON HCL 4MG/2ML INJ IV STA (21:13)
[2018-07-13] MEDS ORDERED: SODIUM CHLORIDE 0.9% 1000ML BAG (SEPSIS BOLUS) IV ONE (21:15)
[2018-07-13] MEDS ORDERED: PIPERACILLIN/TAZ 3.375G PREMIX 50 ML IV ONE (21:15)
[2018-07-13] MEDS ORDERED: VANCOMYCIN 1 G PREMIX 200 ML IV ONE (21:15)
[2018-07-13 22:05] LABS: HEMATOCRIT. 48.6 % (42.0-52.0); HEMOGLOBIN. 15.6 g/dL (14.0-18.0); MEAN CORPUSCULAR HEMOGLOBIN 26.8 pg (28.0-32.0); MEAN CORPUSCULAR VOLUME 83.4 fL (80.0-94.0); MEAN PLATELET VOLUME 7.3 fl (7.4-10.4); PLATELET 248 x1000/uL (130-400); RED BLOOD CELL COUNT 5.83 mill/uL (4.7-6.1); RED CELL DISTRIBUTION WIDTH 19.4 % (11.6-14.6)
[2018-07-13 22:11] LABS: CHLORIDE 100 mEq/L (98-107)
[2018-07-13 22:14] LABS: INR 1.2; PARTIAL THROMBOPLASTIN TIME 33.1 sec (23.4-31.0); PROTHROMBIN TIME 12.5 sec (9.6-11.0)
[2018-07-13 22:20] LABS: PLATELET ESTIMATE NORMAL
[2018-07-13] MEDS ORDERED: FUROSEMIDE 40MG/4ML VIAL IV ONE (23:45)
[2018-07-13] MEDS ORDERED: ASPIRIN 325MG EC TABLET PO ONE (23:45)
[2018-07-13] MEDS ORDERED: NITROGLYCERIN OINT 1GM/INCH UDPKT TD ONE (23:45)
[2018-07-14] MEDS ORDERED: MORPHINE SULFATE 4 MG/ML CPJ (NOT FOR IM USE) IV PRN (07:00)
[2018-07-14] MEDS ORDERED: NA PHOS,M-B/NA PHOS,DI-BA ENEMA 118ML PR PRN (07:00)
[2018-07-14] MEDS ORDERED: CLONIDINE 0.1MG TABLET PO PRN (07:00)
[2018-07-14] MEDS ORDERED: MAGNESIUM/ALUMINUM HYDROXIDE/SIMETHICONE 30ML UDC PO PRN (07:00)
[2018-07-14] MEDS ORDERED: ACETAMINOPHEN 325MG TABLET PO PRN (07:00)
[2018-07-14] MEDS ORDERED: ONDANSETRON HCL 4MG/2ML INJ IV PRN (07:00)
[2018-07-14] MEDS ORDERED: ENOXAPARIN 40MG/0.4ML SYR SUBCUT NR (07:15)
[2018-07-14 07:45] LABS: CHLORIDE 101 mEq/L (98-107)
[2018-07-14 09:30] VITALS: BP 128/86
[2018-07-14] MEDS: ENOXAPARIN 30MG/0.3ML SYR SUBCUT SCH ×2 (11:32→21:32)
[2018-07-14 11:37] LABS: CLARITY URINE CLEAR (CLEAR); COLOR URINE YELLOW (YELLOW); KETONES URINE NEGATIVE (NEGATIVE); LEUKOCYTE ESTERASE URINE NEGATIVE (NEGATIVE); NITRITE URINE NEGATIVE (NEGATIVE); OCCULT BLOOD URINE NEGATIVE (NEGATIVE); PH URINE 5.5 (4.5-8.0); PROTEIN URINE NEGATIVE (NEGATIVE); SPECIFIC GRAVITY URINE 1.012 (1.005-1.030)
[2018-07-14 11:56] LABS: CANNABINOID URINE SCREEN NEGATIVE (NEGATIVE); OPIATES URINE SCREEN PRESUMTIVE POSITIVE (NEGATIVE); PHENCYCLIDINE URINE SCREEN NEGATIVE (NEGATIVE)
[2018-07-14 11:57] LABS: *AMPHETAMINES SCREEN URINE NEGATIVE (NEGATIVE); *BARBITURATES SCREEN URINE NEGATIVE (NEGATIVE); *BENZODIAZEPINES SCREEN URINE NEGATIVE (NEGATIVE); *COCAINE SCREEN URINE PRESUMTIVE POSITIVE (NEGATIVE); METHADONE URINE SCREEN NEGATIVE (NEGATIVE)
[2018-07-14 12:00] VITALS: BP 103/68
[2018-07-14 12:30] VITALS: BP 103/68
[2018-07-14 16:12] VITALS: BP 119/86
[2018-07-14 16:59] LABS: CREATINE KINASE MB FRACTION 2.4 ng/mL (0.5-3.6)
[2018-07-14] MEDS: IPRATROPIUM/ALBUTEROL 0.5-3(2.5)MG/3ML NEB INH PRN (17:25)
[2018-07-14 20:00] VITALS: BP 110/81
[2018-07-14] MEDS: ' IV PRN (20:45)
[2018-07-14] MEDS: DIPHENHYDRAMINE 50MG/ML VIAL IV PRN (21:21)
[2018-07-15] VITALS (7 sets, daily range): BP systolic 105–135; BP diastolic 66–93
[2018-07-15 00:30] LABS: CREATINE KINASE MB FRACTION 1.7 ng/mL (0.5-3.6)
[2018-07-15] MEDS: LORAZEPAM 2MG/ML CPJ IV PRN (00:37)
[2018-07-15] MEDS: ' IV PRN ×2 (00:53→21:48)
[2018-07-15] MEDS: IPRATROPIUM/ALBUTEROL 0.5-3(2.5)MG/3ML NEB INH PRN ×2 (01:02→15:57)
[2018-07-15 07:23] LABS: HEMOGLOBIN. 13.7 g/dL (14.0-18.0); MEAN CORPUSCULAR HEMOGLOBIN 26.4 pg (28.0-32.0); MEAN CORPUSCULAR VOLUME 82.7 fL (80.0-94.0); PLATELET 252 x1000/uL (130-400); RED BLOOD CELL COUNT 5.19 mill/uL (4.7-6.1); RED CELL DISTRIBUTION WIDTH 19.2 % (11.6-14.6)
[2018-07-15 09:23] LABS: CHLORIDE 100 mEq/L (98-107)
[2018-07-15] MEDS: HYDROCODONE/ACETAMINOPHEN 5/325MG TABLET PO PRN (09:26)
[2018-07-15] MEDS: DOCUSATE SODIUM 100MG CAPSULE PO PRN (09:26)
[2018-07-15] MEDS: ASPIRIN 81MG EC TABLET PO SCH (09:27)
[2018-07-15 09:31] LABS: CREATINE KINASE MB FRACTION 1.7 ng/mL (0.5-3.6)
[2018-07-15 09:32] LABS: LDL CHOLESTEROL 108 mg/dL (5-100)
[2018-07-15] MEDS: ENOXAPARIN 30MG/0.3ML SYR SUBCUT SCH ×2 (09:32→21:38)
[2018-07-15 09:34] LABS: CREATINE KINASE 96 IU/L (39-308); T4 FREE 1.13 ng/dL (0.76-1.46)
[2018-07-15 09:37] LABS: HDL CHOLESTEROL 52 mg/dL (40-59)
[2018-07-15 10:35] LABS: PLATELET ESTIMATE NORMAL
[2018-07-15] MEDS: DIPHENHYDRAMINE 50MG/ML VIAL IV PRN (22:15)
[2018-07-16] VITALS: BP 124/86
[2018-07-16] MEDS: DIPHENHYDRAMINE 50MG/ML VIAL IV PRN (02:25)
[2018-07-16 04:00] VITALS: BP 117/85
[2018-07-16 08:00] VITALS: BP 125/89
[2018-07-16] MEDS: ASPIRIN 81MG EC TABLET PO SCH (09:24)
[2018-07-16] MEDS: DOCUSATE SODIUM 100MG CAPSULE PO PRN (09:24)
[2018-07-16] MEDS: ENOXAPARIN 30MG/0.3ML SYR SUBCUT SCH ×2 (09:25→21:41)
[2018-07-16 12:00] VITALS: BP 122/81
[2018-07-16] MEDS: IPRATROPIUM/ALBUTEROL 0.5-3(2.5)MG/3ML NEB INH PRN ×2 (15:06→16:50)
[2018-07-16 16:00] VITALS: BP 110/86
[2018-07-16] MEDS: HYDROCODONE/ACETAMINOPHEN 5/325MG TABLET PO PRN (17:18)
[2018-07-16 20:00] VITALS: BP 115/70
[2018-07-16] MEDS: GUAIFENESIN 200MG/10ML SUGAR FREE UDC PO PRN (21:24)
[2018-07-17] VITALS (7 sets, daily range): BP systolic 98–153; BP diastolic 60–130
[2018-07-17] MEDS: ' IV PRN ×2 (00:56→23:02)
[2018-07-17] MEDS: GUAIFENESIN 200MG/10ML SUGAR FREE UDC PO PRN (01:03)
[2018-07-17] MEDS: LORAZEPAM 2MG/ML CPJ IV PRN ×3 (01:03→20:30)
[2018-07-17] MEDS: IPRATROPIUM/ALBUTEROL 0.5-3(2.5)MG/3ML NEB INH PRN ×3 (01:31→21:24)
[2018-07-17] MEDS: DOCUSATE SODIUM 100MG CAPSULE PO PRN (09:34)
[2018-07-17] MEDS: ASPIRIN 81MG EC TABLET PO SCH (09:34)
[2018-07-17] MEDS: ENOXAPARIN 30MG/0.3ML SYR SUBCUT SCH ×2 (09:35→21:54)
[2018-07-17] MEDS: DIPHENHYDRAMINE 50MG/ML VIAL IV PRN (20:36)
[2018-07-17] MEDS ORDERED: HALOPERIDOL LACTATE 5MG/ML VIAL IM NR (23:00)
[2018-07-18] VITALS: BP 153/100
[2018-07-18] MEDS: DIPHENHYDRAMINE 50MG/ML VIAL IV PRN (00:31)
[2018-07-18] MEDS: IPRATROPIUM/ALBUTEROL 0.5-3(2.5)MG/3ML NEB INH PRN ×2 (01:02→04:33)
[2018-07-18 04:00] VITALS: BP 113/78
[2018-07-18] MEDS ORDERED: FUROSEMIDE 100MG/10ML VIAL IVP SCH ×2 (06:45→07:00)
[2018-07-18 08:00] VITALS: BP 109/62
[2018-07-18] MEDS: ASPIRIN 81MG EC TABLET PO SCH (08:51)
[2018-07-18] MEDS: ENOXAPARIN 30MG/0.3ML SYR SUBCUT SCH (10:08)
[2018-07-18 12:00] VITALS: BP 105/74
[2018-07-18 12:33] VITALS: BP 100/62
[2018-07-18] MEDS ORDERED: FUROSEMIDE 40MG TABLET PO SCH (17:00)
== END 2018-07-18 14:47 | disposition home or self-care (01) | DRG 194 ==
LOC: ER 19:17 → 7WST 07-14 00:47 → EDBEDREQTM 07-14 00:50 → EDBEDREQDT 07-14 00:50 → EDBEDREQ 07-14 00:50 → ENRESERV 07-14 07:12 → 7WST 07-14 10:13
PROVIDERS: ADMIT Internal Medicine; ATTEND Internal Medicine
DX: I11.0 Hypertensive heart disease with heart failure (principal); N17.0 Acute kidney failure with tubular necrosis; E87.2 Acidosis; I50.41 Acute combined systolic (congestive) and diastolic (congestive) heart failure; I25.10 Atherosclerotic heart disease of native coronary artery without angina pectoris; R07.9 Chest pain, unspecified; E78.5 Hyperlipidemia, unspecified; F17.200 Nicotine dependence, unspecified, uncomplicated
CPT/HCPCS: 36415; 71045; 73110; 73130; 80048; 80061; 80305; 82550; 82553; 83036; 83605; 83880; 84145; 84439; 84443; 84484; 85379; 93005; 93306; 94640; 96365; 96366; 96375; 97166; 99291; J1200; J1630; J1650; J1940; J2060; J2270; J2405; J2543; J3370; J7030; J7620

== ENCOUNTER 2018-09-08 06:34 | Inpatient (IN) | payer MEDICAID ==
[2018-09-08] VITALS (9 sets, daily range): BP systolic 103–131; BP diastolic 58–93
[~2018-09-08] VITALS: Ht 185.4 cm; Wt 100.3 kg
[2018-09-08] MEDS ORDERED: IPRATROPIUM BROMIDE (0.02%) 0.5MG/2.5ML NEB HHN STA (06:41)
[2018-09-08] MEDS ORDERED: METHYLPREDNISOLONE SOD SUCC 125 MG/2 ML VIAL IV STA (06:41)
[2018-09-08] MEDS ORDERED: ALBUTEROL (0.083%) 2.5MG/3ML NEB HHN SCH (07:00)
[2018-09-08 07:34] LABS: BASOPHILS % 0.4 % (0.0-2.0); HEMATOCRIT. 52.3 % (42.0-52.0); HEMOGLOBIN. 16.7 g/dL (14.0-18.0); LYMPHOCYTES % 11.2 % (20.0-50.0); MEAN CORPUSCULAR HEMOGLOBIN 25.1 pg (28.0-32.0); MEAN CORPUSCULAR VOLUME 78.8 fL (80.0-94.0); MEAN PLATELET VOLUME 8.1 fl (7.4-10.4); MONOCYTES % 13.9 % (2.0-8.0); NEUTROPHILS % 72.5 % (40.0-76.0); PLATELET 350 x1000/uL (130-400); RED BLOOD CELL COUNT 6.64 mill/uL (4.7-6.1); RED CELL DISTRIBUTION WIDTH 19.3 % (11.6-14.6)
[2018-09-08 07:35] LABS: CHLORIDE 98 mEq/L (98-107)
[2018-09-08] MEDS ORDERED: FUROSEMIDE 40MG/4ML VIAL IVP ONE (08:00)
[2018-09-08 08:11] LABS: BG BASE EXCESS -3.1 mmol/L (-2.0-2.0); BG BILEVEL POS AIRWAY PRESSURE 15/5; BG CARBOXYHEMOGLOBIN 1.7 % (0.5-1.5); BG DEOXYHEMOGLOBIN 0.6 % (0.0-5.0); BG HCO3 ACT 22.8 mmol/L (22.0-26.0); BG METHEMOGLOBIN 0.6 % (0.0-1.5); BG OXYGEN SATURATION 99.4 % (92.0-98.5); BG OXYHEMOGLOBIN 97.1 % (94.0-97.0); BG PCO2 43.6 mmHg (35.0-45.0); BG PH 7.336 (7.350-7.450); BG PO2 291.2 mmHg (75.0-100.0); BG SAMPLE SITE RIGHT RADIAL; BG TOTAL HEMOGLOBIN 15.9 g/dL (12.0-18.0); BG VENT MODE MASK - BIPAP; BG VENT RATE 18 set
[2018-09-08] MEDS ORDERED: ONDANSETRON HCL 4MG/2ML INJ IV PRN (10:30)
[2018-09-08] MEDS: FUROSEMIDE 100MG/10ML VIAL IVP SCH ×2 (11:42→17:56)
[2018-09-08] MEDS: LORAZEPAM 2MG/ML CPJ IV PRN ×2 (11:56→22:45)
[2018-09-08] MEDS: LOSARTAN POTASSIUM 25 MG TABLET PO SCH (11:56)
[2018-09-08] MEDS: SPIRONOLACTONE 25MG TABLET PO SCH (11:57)
[2018-09-08] MEDS: ACETAMINOPHEN 325MG TABLET PO PRN (18:18)
[2018-09-08] MEDS: BUDESONIDE 0.5MG/2ML NEB HHN SCH (20:15)
[2018-09-08] MEDS: ENOXAPARIN 30MG/0.3ML SYR SUBCUT SCH (21:00)
[2018-09-08] MEDS: IPRATROPIUM/ALBUTEROL 0.5-3(2.5)MG/3ML NEB HHN PRN (21:36)
[2018-09-08 22:14] LABS: *AMPHETAMINES SCREEN URINE NEGATIVE (NEGATIVE); *BARBITURATES SCREEN URINE NEGATIVE (NEGATIVE)
[2018-09-08 22:15] LABS: *BENZODIAZEPINES SCREEN URINE NEGATIVE (NEGATIVE); *COCAINE SCREEN URINE PRESUMTIVE POSITIVE (NEGATIVE); METHADONE URINE SCREEN NEGATIVE (NEGATIVE); OPIATES URINE SCREEN NEGATIVE (NEGATIVE); PHENCYCLIDINE URINE SCREEN NEGATIVE (NEGATIVE)
[2018-09-08 22:16] LABS: CANNABINOID URINE SCREEN NEGATIVE (NEGATIVE)
[2018-09-09] VITALS (11 sets, daily range): BP systolic 106–144; BP diastolic 48–86
[2018-09-09 06:09] LABS: HEMATOCRIT. 47.7 % (42.0-52.0); MEAN CORPUSCULAR HEMOGLOBIN 24.9 pg (28.0-32.0); MEAN CORPUSCULAR VOLUME 79.2 fL (80.0-94.0); MEAN PLATELET VOLUME 7.9 fl (7.4-10.4); PLATELET 265 x1000/uL (130-400); RED BLOOD CELL COUNT 6.02 mill/uL (4.7-6.1); RED CELL DISTRIBUTION WIDTH 18.8 % (11.6-14.6)
[2018-09-09 06:20] LABS: CHLORIDE 102 mEq/L (98-107)
[2018-09-09] MEDS: FUROSEMIDE 100MG/10ML VIAL IVP SCH ×2 (06:40→17:47)
[2018-09-09] MEDS: BUDESONIDE 0.5MG/2ML NEB HHN SCH ×2 (08:00→20:27)
[2018-09-09] MEDS: ENOXAPARIN 30MG/0.3ML SYR SUBCUT SCH ×2 (08:45→20:48)
[2018-09-09] MEDS: SPIRONOLACTONE 25MG TABLET PO SCH (08:46)
[2018-09-09] MEDS: LOSARTAN POTASSIUM 25 MG TABLET PO SCH (09:00)
[2018-09-09 10:07] LABS: PLATELET ESTIMATE NORMAL
[2018-09-09] MEDS: LORAZEPAM 2MG/ML CPJ IV PRN (12:25)
[2018-09-09] MEDS: IPRATROPIUM/ALBUTEROL 0.5-3(2.5)MG/3ML NEB HHN PRN (20:27)
[2018-09-10] MEDS: LORAZEPAM 2MG/ML CPJ IV PRN ×2 (01:54→20:27)
[2018-09-10 02:00] VITALS: BP 182/78
[2018-09-10 02:55] VITALS: BP 182/78
[2018-09-10] MEDS: IPRATROPIUM/ALBUTEROL 0.5-3(2.5)MG/3ML NEB HHN PRN ×4 (04:37→20:50)
[2018-09-10] MEDS: FUROSEMIDE 100MG/10ML VIAL IVP SCH ×2 (06:50→17:15)
[2018-09-10] MEDS: SPIRONOLACTONE 25MG TABLET PO SCH (09:00)
[2018-09-10] MEDS: ENOXAPARIN 30MG/0.3ML SYR SUBCUT SCH ×2 (09:00→20:27)
[2018-09-10] MEDS: BUDESONIDE 0.5MG/2ML NEB HHN SCH ×2 (09:00→20:51)
[2018-09-10] MEDS: LOSARTAN POTASSIUM 25 MG TABLET PO SCH (09:00)
[2018-09-10] MEDS ORDERED: NYSTATIN 100,000 UNITS/GM OINT 15GM TOP SCH (14:00)
[2018-09-10 16:40] LABS: HEMATOCRIT. 47.3 % (42.0-52.0); HEMOGLOBIN. 14.7 g/dL (14.0-18.0); MEAN CORPUSCULAR HEMOGLOBIN 24.5 pg (28.0-32.0); MEAN CORPUSCULAR VOLUME 78.8 fL (80.0-94.0); MEAN PLATELET VOLUME 7.7 fl (7.4-10.4); PLATELET 275 x1000/uL (130-400)
[2018-09-10 16:55] LABS: CHLORIDE 98 mEq/L (98-107)
[2018-09-10 21:42] LABS: PLATELET ESTIMATE NORMAL
[2018-09-11] VITALS (9 sets, daily range): BP systolic 102–143; BP diastolic 56–109
[2018-09-11] MEDS: IPRATROPIUM/ALBUTEROL 0.5-3(2.5)MG/3ML NEB HHN PRN ×4 (00:18→20:54)
[2018-09-11] MEDS: LORAZEPAM 2MG/ML CPJ IV PRN ×3 (01:51→14:19)
[2018-09-11] MEDS: BUDESONIDE 0.5MG/2ML NEB HHN SCH (08:32)
[2018-09-11] MEDS: FUROSEMIDE 100MG/10ML VIAL IVP SCH ×2 (08:55→17:23)
[2018-09-11] MEDS: SPIRONOLACTONE 25MG TABLET PO SCH (09:00)
[2018-09-11] MEDS: LOSARTAN POTASSIUM 25 MG TABLET PO SCH (09:00)
[2018-09-11 09:11] LABS: BG BASE EXCESS 1.8 mmol/L (-2.0-2.0); BG CARBOXYHEMOGLOBIN 1.4 % (0.5-1.5); BG DEOXYHEMOGLOBIN 11.9 % (0.0-5.0); BG FRACTION INSPIRED OXYGEN 32; BG HCO3 ACT 26.1 mmol/L (22.0-26.0); BG METHEMOGLOBIN 0.4 % (0.0-1.5); BG OXYGEN SATURATION 87.9 % (92.0-98.5); BG OXYHEMOGLOBIN 86.3 % (94.0-97.0); BG PCO2 39.7 mmHg (35.0-45.0); BG PH 7.435 (7.350-7.450); BG PO2 55.3 mmHg (75.0-100.0); BG SAMPLE SITE RIGHT BRACHIAL; BG TOTAL HEMOGLOBIN 15.1 g/dL (12.0-18.0); BG VENT MODE NASAL CANNULA
[2018-09-11] MEDS: ENOXAPARIN 30MG/0.3ML SYR SUBCUT SCH ×2 (10:54→21:00)
[2018-09-11] MEDS: METOLAZONE 2.5MG TABLET PO SCH (12:30)
[2018-09-11] MEDS ORDERED: HALOPERIDOL LACTATE 5MG/ML VIAL IM SCH (13:15)
[2018-09-11] MEDS ORDERED: FUROSEMIDE 40MG/4ML VIAL IVP SCH (13:30)
[2018-09-11] MEDS: HALOPERIDOL LACTATE 5MG/ML VIAL IM PRN (15:29)
[2018-09-11 17:17] LABS: CHLORIDE 98 mEq/L (98-107)
[2018-09-12] VITALS: BP 111/68
[2018-09-12 02:00] VITALS: BP 114/78
[2018-09-12] MEDS: IPRATROPIUM/ALBUTEROL 0.5-3(2.5)MG/3ML NEB HHN PRN ×5 (02:05→20:59)
[2018-09-12 03:51] VITALS: BP 105/59
[2018-09-12] MEDS: LORAZEPAM 2MG/ML CPJ IV PRN (05:51)
[2018-09-12 06:00] VITALS: BP 136/94
[2018-09-12] MEDS: HALOPERIDOL LACTATE 5MG/ML VIAL IM PRN (06:28)
[2018-09-12 07:51] LABS: HEMATOCRIT. 46.5 % (42.0-52.0); HEMOGLOBIN. 14.4 g/dL (14.0-18.0); MEAN CORPUSCULAR HEMOGLOBIN 24.6 pg (28.0-32.0); MEAN CORPUSCULAR VOLUME 79.5 fL (80.0-94.0); MEAN PLATELET VOLUME 7.8 fl (7.4-10.4); PLATELET 261 x1000/uL (130-400); RED BLOOD CELL COUNT 5.84 mill/uL (4.7-6.1); RED CELL DISTRIBUTION WIDTH 19.1 % (11.6-14.6)
[2018-09-12 07:58] LABS: CHLORIDE 96 mEq/L (98-107)
[2018-09-12] MEDS: ENOXAPARIN 30MG/0.3ML SYR SUBCUT SCH ×2 (08:48→22:44)
[2018-09-12] MEDS: METOLAZONE 2.5MG TABLET PO SCH (08:48)
[2018-09-12] MEDS: SPIRONOLACTONE 25MG TABLET PO SCH (08:48)
[2018-09-12] MEDS: LOSARTAN POTASSIUM 25 MG TABLET PO SCH (08:52)
[2018-09-12] MEDS: FUROSEMIDE 100MG/10ML VIAL IVP SCH ×2 (08:53→16:09)
[2018-09-12] MEDS ORDERED: FUROSEMIDE 40MG/4ML VIAL IVP NR (10:30)
[2018-09-12 12:56] LABS: INR 1.1; PROTHROMBIN TIME 11.7 sec (9.6-11.0)
[2018-09-12 13:17] LABS: PLATELET ESTIMATE NORMAL
[2018-09-13 02:00] VITALS: BP 132/67
[2018-09-13] MEDS: ACETAMINOPHEN 325MG TABLET PO PRN (02:46)
[2018-09-13 04:00] VITALS: BP 106/74
[2018-09-13 06:00] VITALS: BP 111/69
[2018-09-13 08:00] VITALS: BP 92/70
[2018-09-13 08:56] LABS: HEMATOCRIT. 44.1 % (42.0-52.0); HEMOGLOBIN. 14.2 g/dL (14.0-18.0); MEAN CORPUSCULAR HEMOGLOBIN 24.9 pg (28.0-32.0); MEAN CORPUSCULAR VOLUME 77.4 fL (80.0-94.0); MEAN PLATELET VOLUME 7.4 fl (7.4-10.4); PLATELET 256 x1000/uL (130-400); RED CELL DISTRIBUTION WIDTH 18.9 % (11.6-14.6)
[2018-09-13 09:10] LABS: CHLORIDE 96 mEq/L (98-107)
[2018-09-13] MEDS: FUROSEMIDE 100MG/10ML VIAL IVP SCH (09:30)
[2018-09-13] MEDS: SPIRONOLACTONE 25MG TABLET PO SCH (09:32)
[2018-09-13 10:00] VITALS: BP 118/39
[2018-09-13 10:30] LABS: T4 FREE 1.05 ng/dL (0.76-1.46)
[2018-09-13] MEDS: ENOXAPARIN 30MG/0.3ML SYR SUBCUT SCH (10:57)
[2018-09-13] MEDS: LOSARTAN POTASSIUM 25 MG TABLET PO SCH (10:57)
[2018-09-13] MEDS: METOLAZONE 2.5MG TABLET PO SCH (10:57)
[2018-09-13 16:20] LABS: PLATELET ESTIMATE NORMAL
== END 2018-09-13 11:45 | disposition left against medical advice (07) | DRG 816 ==
LOC: ER 08:07 → 5EST 08:29 → ENRESERV 08:52 → 6EST 09-11 01:00 → 5EST 09-11 08:27
PROVIDERS: ADMIT Internal Medicine; ATTEND Internal Medicine
PROC: 5A09357 Assistance with Respiratory Ventilation, Less than 24 Consecutive Hours, Continuous Positive Airway Pressure (ICD-10-PCS; principal; 2018-09-08)
PROC: 5A09357 Assistance with Respiratory Ventilation, Less than 24 Consecutive Hours, Continuous Positive Airway Pressure (ICD-10-PCS; 2018-09-11)
PROC: 5A09357 Assistance with Respiratory Ventilation, Less than 24 Consecutive Hours, Continuous Positive Airway Pressure (ICD-10-PCS; 2018-09-12)
PROC: 5A09357 Assistance with Respiratory Ventilation, Less than 24 Consecutive Hours, Continuous Positive Airway Pressure (ICD-10-PCS; 2018-09-13)
DX: T40.5X1A Poisoning by cocaine, accidental (unintentional), initial encounter (principal); J96.00 Acute respiratory failure, unspecified whether with hypoxia or hypercapnia; E43 Unspecified severe protein-calorie malnutrition; N17.0 Acute kidney failure with tubular necrosis; I50.23 Acute on chronic systolic (congestive) heart failure; I42.9 Cardiomyopathy, unspecified; J68.0 Bronchitis and pneumonitis due to chemicals, gases, fumes and vapors; I13.0 Hypertensive heart and chronic kidney disease with heart failure and stage 1 through stage 4 chronic kidney disease, or unspecified chronic kidney disease; F12.90 Cannabis use, unspecified, uncomplicated; F14.90 Cocaine use, unspecified, uncomplicated; E87.1 Hypo-osmolality and hyponatremia; E66.9 Obesity, unspecified; E78.5 Hyperlipidemia, unspecified; N18.9 Chronic kidney disease, unspecified; F17.210 Nicotine dependence, cigarettes, uncomplicated; F10.10 Alcohol abuse, uncomplicated; Z53.21 Procedure and treatment not carried out due to patient leaving prior to being seen by health care provider; Z79.899 Other long term (current) drug therapy; Z68.29 Body mass index [BMI] 29.0-29.9, adult; Z91.19 Patient's noncompliance with other medical treatment and regimen; Z79.82 Long term (current) use of aspirin; Y92.89 Other specified places as the place of occurrence of the external cause; Z71.51 Drug abuse counseling and surveillance of drug abuser; Z71.6 Tobacco abuse counseling
CPT/HCPCS: 36415; 36600; 71045; 80048; 80061; 80305; 82375; 82805; 83036; 83880; 84145; 84439; 84443; 84484; 93005; 94640; 94660; 96374; 96375; 99291; C1893; J1630; J1650; J1940; J2060; J2930; J7611; J7620; J7626

== ENCOUNTER 2018-10-04 10:08 | Inpatient (IN) | payer MEDICAID, OTHER ==
[~2018-10-04] VITALS: Ht 185.4 cm; Wt 113.9 kg
[2018-10-04] MEDS ORDERED: NITROGLYCERIN OINT 1GM/INCH UDPKT TD ONE (11:15)
[2018-10-04] MEDS ORDERED: FUROSEMIDE 40MG/4ML VIAL IV ONE (11:15)
[2018-10-04 11:21] LABS: BASOPHILS % 0.5 % (0.0-2.0); HEMATOCRIT. 47.5 % (42.0-52.0); HEMOGLOBIN. 15.2 g/dL (14.0-18.0); LYMPHOCYTES % 8.2 % (20.0-50.0); MEAN CORPUSCULAR HEMOGLOBIN 25.7 pg (28.0-32.0); MEAN PLATELET VOLUME 7.1 fl (7.4-10.4); NEUTROPHILS % 78.3 % (40.0-76.0); PLATELET 313 x1000/uL (130-400); RED BLOOD CELL COUNT 5.93 mill/uL (4.7-6.1); RED CELL DISTRIBUTION WIDTH 21.8 % (11.6-14.6)
[2018-10-04 11:27] LABS: CHLORIDE 101 mEq/L (98-107)
[2018-10-04 11:29] LABS: INR 1.1; PARTIAL THROMBOPLASTIN TIME 29.9 sec (23.4-31.0); PROTHROMBIN TIME 11.7 sec (9.6-11.0)
[2018-10-04 12:28] LABS: CLARITY URINE CLEAR (CLEAR); COLOR URINE YELLOW (YELLOW); KETONES URINE NEGATIVE (NEGATIVE); LEUKOCYTE ESTERASE URINE NEGATIVE (NEGATIVE); NITRITE URINE NEGATIVE (NEGATIVE); OCCULT BLOOD URINE NEGATIVE (NEGATIVE); PROTEIN URINE TRACE (NEGATIVE); SPECIFIC GRAVITY URINE 1.016 (1.005-1.030)
[2018-10-04 15:15] VITALS: BP 128/92
[2018-10-04] MEDS ORDERED: ACETAMINOPHEN 325MG TABLET PO PRN (15:45)
[2018-10-04] MEDS ORDERED: DOCUSATE SODIUM 100MG CAPSULE PO PRN (15:45)
[2018-10-04] MEDS ORDERED: MAGNESIUM/ALUMINUM HYDROXIDE/SIMETHICONE 30ML UDC PO PRN (15:45)
[2018-10-04] MEDS ORDERED: ONDANSETRON HCL 4MG/2ML INJ IV PRN (15:45)
[2018-10-04] MEDS ORDERED: CLONIDINE 0.1MG TABLET PO PRN (15:45)
[2018-10-04 16:00] VITALS: BP 128/92
[2018-10-04 16:33] LABS: PHOSPHORUS 3.2 mg/dL (2.5-4.9)
[2018-10-04] MEDS: FUROSEMIDE 40MG/4ML VIAL IV SCH ×2 (16:57→21:55)
[2018-10-04] MEDS: ENOXAPARIN 40MG/0.4ML SYR SUBCUT SCH (16:57)
[2018-10-04] MEDS ORDERED: AZITHROMYCIN 500 MG in DEXT 5% WATER 250 ML IV SCH (18:00)
[2018-10-04 20:00] VITALS: BP 124/94
[2018-10-04 20:48] LABS: *BARBITURATES SCREEN URINE NEGATIVE (NEGATIVE); *COCAINE SCREEN URINE PRESUMTIVE POSITIVE (NEGATIVE)
[2018-10-04 20:49] LABS: *AMPHETAMINES SCREEN URINE NEGATIVE (NEGATIVE); *BENZODIAZEPINES SCREEN URINE NEGATIVE (NEGATIVE); CANNABINOID URINE SCREEN NEGATIVE (NEGATIVE); METHADONE URINE SCREEN NEGATIVE (NEGATIVE); OPIATES URINE SCREEN NEGATIVE (NEGATIVE); PHENCYCLIDINE URINE SCREEN NEGATIVE (NEGATIVE)
[2018-10-04] MEDS: IPRATROPIUM/ALBUTEROL 0.5-3(2.5)MG/3ML NEB INH PRN (21:55)
[2018-10-05] VITALS: BP 123/87
[2018-10-05 04:00] VITALS: BP 127/84
[2018-10-05] MEDS: IPRATROPIUM/ALBUTEROL 0.5-3(2.5)MG/3ML NEB INH PRN (05:09)
[2018-10-05] MEDS: GUAIFENESIN 200MG/10ML SUGAR FREE UDC PO PRN ×2 (07:09→11:25)
[2018-10-05 08:00] VITALS: BP 112/81
[2018-10-05 08:07] LABS: EOSINOPHILS % 2.2 % (0.0-5.0); HEMATOCRIT. 46.5 % (42.0-52.0); HEMOGLOBIN. 14.7 g/dL (14.0-18.0); LYMPHOCYTES % 8.3 % (20.0-50.0); MEAN CORPUSCULAR HEMOGLOBIN 25.3 pg (28.0-32.0); MEAN CORPUSCULAR VOLUME 79.6 fL (80.0-94.0); MEAN PLATELET VOLUME 7.4 fl (7.4-10.4); MONOCYTES % 13.6 % (2.0-8.0); NEUTROPHILS % 74.9 % (40.0-76.0); PLATELET 298 x1000/uL (130-400); RED BLOOD CELL COUNT 5.84 mill/uL (4.7-6.1); RED CELL DISTRIBUTION WIDTH 21.9 % (11.6-14.6)
[2018-10-05] MEDS ORDERED: FUROSEMIDE 40MG/4ML VIAL IVP SCH (09:30)
[2018-10-05 09:41] LABS: CHLORIDE 101 mEq/L (98-107)
[2018-10-05 09:56] LABS: LDL CHOLESTEROL 98 mg/dL (5-100)
[2018-10-05 09:57] LABS: CREATINE KINASE 247 IU/L (39-308); CREATINE KINASE MB FRACTION 6.9 ng/mL (0.5-3.6); HDL CHOLESTEROL 56 mg/dL (40-59)
[2018-10-05] MEDS: LOSARTAN POTASSIUM 50 MG TABLET PO SCH (10:40)
[2018-10-05] MEDS: POTASSIUM CHLORIDE 20MEQ TABLET SR PO SCH (10:40)
[2018-10-05 12:00] VITALS: BP 142/87
[2018-10-05 16:00] VITALS: BP 110/75
[2018-10-05] MEDS: FUROSEMIDE 40MG/4ML VIAL IV SCH (17:21)
[2018-10-05] MEDS: ENOXAPARIN 40MG/0.4ML SYR SUBCUT SCH (17:22)
[2018-10-05] MEDS: AZITHROMYCIN 500MG in DEXTROSE 5% WATER 250ML IV SCH (18:27)
[2018-10-05 20:00] VITALS: BP 91/61
[2018-10-05] MEDS: CARVEDILOL 6.25 MG TABLET PO SCH (20:50)
[2018-10-06] VITALS (8 sets, daily range): BP systolic 98–115; BP diastolic 58–78
[2018-10-06] MEDS: IPRATROPIUM/ALBUTEROL 0.5-3(2.5)MG/3ML NEB INH PRN (06:51)
[2018-10-06] MEDS: CARVEDILOL 6.25 MG TABLET PO SCH ×2 (08:57→21:00)
[2018-10-06] MEDS: LOSARTAN POTASSIUM 50 MG TABLET PO SCH (08:58)
[2018-10-06] MEDS: POTASSIUM CHLORIDE 20MEQ TABLET SR PO SCH (09:00)
[2018-10-06] MEDS: FUROSEMIDE 40MG/4ML VIAL IV SCH ×2 (09:00→17:10)
[2018-10-06] MEDS: GUAIFENESIN 200MG/10ML SUGAR FREE UDC PO PRN (09:00)
[2018-10-06] MEDS: HYDROCODONE/ACETAMINOPHEN 5/325MG TABLET PO PRN (11:26)
[2018-10-06 16:12] LABS: HEMATOCRIT. 43.5 % (42.0-52.0); HEMOGLOBIN. 13.8 g/dL (14.0-18.0); MEAN CORPUSCULAR HEMOGLOBIN 25.4 pg (28.0-32.0); MEAN CORPUSCULAR VOLUME 80.4 fL (80.0-94.0); MEAN PLATELET VOLUME 7.4 fl (7.4-10.4); PLATELET 278 x1000/uL (130-400); RED BLOOD CELL COUNT 5.41 mill/uL (4.7-6.1); RED CELL DISTRIBUTION WIDTH 21.5 % (11.6-14.6)
[2018-10-06 16:39] LABS: PLATELET ESTIMATE NORMAL
[2018-10-06] MEDS: AZITHROMYCIN 500MG in DEXTROSE 5% WATER 250ML IV SCH (17:10)
[2018-10-06] MEDS: ENOXAPARIN 30MG/0.3ML SYR SUBCUT SCH (22:09)
[2018-10-06] MEDS ORDERED: DEXTROSE 50% WATER 50ML SYRINGE IV PRN (23:30)
[2018-10-07] VITALS: BP 124/60
[2018-10-07] MEDS: HYDROCODONE/ACETAMINOPHEN 5/325MG TABLET PO PRN (00:46)
[2018-10-07 04:00] VITALS: BP 113/79
[2018-10-07] MEDS: BLOOD SUGAR DIAGNOSTIC STRIP TEST SCH ×3 (06:15→16:29)
[2018-10-07] MEDS: IPRATROPIUM/ALBUTEROL 0.5-3(2.5)MG/3ML NEB INH PRN ×2 (06:21→15:49)
[2018-10-07] MEDS: INSULIN LISPRO 100 UNITS/ML SUBCUT SCH ×3 (06:27→16:30)
[2018-10-07 08:00] VITALS: BP 88/55
[2018-10-07] MEDS ORDERED: AZITHROMYCIN 500 MG TABLET PO SCH (09:00)
[2018-10-07 10:19] LABS: HEMATOCRIT. 42.5 % (42.0-52.0); HEMOGLOBIN. 13.6 g/dL (14.0-18.0); MEAN CORPUSCULAR HEMOGLOBIN 25.5 pg (28.0-32.0); MEAN CORPUSCULAR VOLUME 79.7 fL (80.0-94.0); MEAN PLATELET VOLUME 7.5 fl (7.4-10.4); PLATELET 231 x1000/uL (130-400); RED BLOOD CELL COUNT 5.33 mill/uL (4.7-6.1); RED CELL DISTRIBUTION WIDTH 21.8 % (11.6-14.6)
[2018-10-07 10:21] LABS: CHLORIDE 101 mEq/L (98-107)
[2018-10-07] MEDS: FUROSEMIDE 40MG/4ML VIAL IV SCH (10:45)
[2018-10-07] MEDS: CARVEDILOL 6.25 MG TABLET PO SCH (10:45)
[2018-10-07] MEDS: POTASSIUM CHLORIDE 20MEQ TABLET SR PO SCH (10:46)
[2018-10-07] MEDS: ENOXAPARIN 30MG/0.3ML SYR SUBCUT SCH (10:46)
[2018-10-07] MEDS: LOSARTAN POTASSIUM 50 MG TABLET PO SCH (11:18)
[2018-10-07 11:31] LABS: PLATELET ESTIMATE NORMAL
[2018-10-07 12:00] VITALS: BP 98/64
[2018-10-07 15:47] VITALS: BP 98/64
[2018-10-07 16:00] VITALS: BP 101/63
== END 2018-10-07 16:45 | disposition home or self-care (01) | DRG 194 ==
LOC: ER 10:08 → 5WST 13:15 → EDBEDREQ 13:29 → ENRESERV 14:00
PROVIDERS: ADMIT Internal Medicine; ATTEND Internal Medicine
DX: I11.0 Hypertensive heart disease with heart failure (principal); J18.1 Lobar pneumonia, unspecified organism; I42.9 Cardiomyopathy, unspecified; E11.65 Type 2 diabetes mellitus with hyperglycemia; E44.1 Mild protein-calorie malnutrition; I50.23 Acute on chronic systolic (congestive) heart failure; K76.1 Chronic passive congestion of liver; J44.0 Chronic obstructive pulmonary disease with (acute) lower respiratory infection; F17.200 Nicotine dependence, unspecified, uncomplicated; R74.0 Nonspecific elevation of levels of transaminase and lactic acid dehydrogenase [LDH]; F14.90 Cocaine use, unspecified, uncomplicated; Z91.19 Patient's noncompliance with other medical treatment and regimen; Z79.899 Other long term (current) drug therapy; Z79.82 Long term (current) use of aspirin; Z68.33 Body mass index [BMI] 33.0-33.9, adult
CPT/HCPCS: 36415; 71045; 80048; 80061; 80076; 80305; 81003; 82248; 82550; 82553; 82962; 83036; 83735; 83880; 84100; 84443; 84484; 93005; 93970; 94640; 96374; 97162; 99285; J0456; J1650; J1940; J7060; J7620

== ENCOUNTER 2018-11-25 08:39 | Inpatient (IN) | payer MEDICAID ==
[~2018-11-25] VITALS: Ht 185.4 cm; Wt 96.6 kg
[2018-11-25] MEDS ORDERED: IBUPROFEN 800MG TABLET PO ONE (09:15)
[2018-11-25 10:15] LABS: HEMATOCRIT. 47.2 % (42.0-52.0); HEMOGLOBIN. 15.1 g/dL (14.0-18.0); MEAN CORPUSCULAR HEMOGLOBIN 25.2 pg (28.0-32.0); MEAN CORPUSCULAR VOLUME 78.6 fL (80.0-94.0); MEAN PLATELET VOLUME 7.1 fl (7.4-10.4); PLATELET 249 x1000/uL (130-400); RED BLOOD CELL COUNT 6.01 mill/uL (4.7-6.1); RED CELL DISTRIBUTION WIDTH 20.7 % (11.6-14.6)
[2018-11-25 10:21] LABS: CHLORIDE 107 mEq/L (98-107)
[2018-11-25] MEDS ORDERED: FUROSEMIDE 40MG/4ML VIAL IVP ONE (10:45)
[2018-11-25 10:55] LABS: PLATELET ESTIMATE NORMAL
[2018-11-25] MEDS ORDERED: ASPIRIN 81MG TABLET PO ONE (11:15)
[2018-11-25] MEDS ORDERED: NITROGLYCERIN 0.4MG TABLET SL SL PRN (11:15)
[2018-11-25] MEDS ORDERED: ACETAMINOPHEN 325MG TABLET PO PRN (13:30)
[2018-11-25] MEDS ORDERED: FUROSEMIDE 40MG/4ML VIAL IVP SCH (13:30)
[2018-11-25] MEDS ORDERED: ONDANSETRON HCL 4MG/2ML INJ IV PRN (13:30)
[2018-11-25 16:00] VITALS: BP 119/89
[2018-11-25] MEDS: LOSARTAN POTASSIUM 25 MG TABLET PO SCH (17:21)
[2018-11-25] MEDS: FUROSEMIDE 40MG/4ML VIAL IVP SCH (17:21)
[2018-11-25 19:46] LABS: CLARITY URINE CLEAR (CLEAR); COLOR URINE YELLOW (YELLOW); KETONES URINE NEGATIVE (NEGATIVE); LEUKOCYTE ESTERASE URINE NEGATIVE (NEGATIVE); NITRITE URINE NEGATIVE (NEGATIVE); OCCULT BLOOD URINE NEGATIVE (NEGATIVE); PROTEIN URINE NEGATIVE (NEGATIVE); SPECIFIC GRAVITY URINE 1.005 (1.005-1.030)
[2018-11-25 20:00] VITALS: BP 113/71
[2018-11-25 20:10] LABS: *AMPHETAMINES SCREEN URINE NEGATIVE (NEGATIVE); *BARBITURATES SCREEN URINE NEGATIVE (NEGATIVE)
[2018-11-25 20:11] LABS: *BENZODIAZEPINES SCREEN URINE NEGATIVE (NEGATIVE); *COCAINE SCREEN URINE PRESUMTIVE POSITIVE (NEGATIVE); METHADONE URINE SCREEN NEGATIVE (NEGATIVE); OPIATES URINE SCREEN NEGATIVE (NEGATIVE); PHENCYCLIDINE URINE SCREEN NEGATIVE (NEGATIVE)
[2018-11-25 20:12] LABS: CANNABINOID URINE SCREEN NEGATIVE (NEGATIVE)
[2018-11-25] MEDS: BUDESONIDE 0.5MG/2ML NEB HHN SCH (20:57)
[2018-11-25] MEDS: IPRATROPIUM/ALBUTEROL 0.5-3(2.5)MG/3ML NEB HHN PRN (20:57)
[2018-11-25] MEDS: CARVEDILOL 6.25 MG TABLET PO SCH (22:27)
[2018-11-25] MEDS: ENOXAPARIN 30MG/0.3ML SYR SUBCUT SCH (22:28)
[2018-11-26] VITALS: BP 103/73
[2018-11-26 04:00] VITALS: BP 109/82
[2018-11-26 08:00] VITALS: BP 107/75
[2018-11-26] MEDS: CARVEDILOL 6.25 MG TABLET PO SCH ×2 (08:45→20:05)
[2018-11-26] MEDS: LOSARTAN POTASSIUM 25 MG TABLET PO SCH (08:45)
[2018-11-26] MEDS: ENOXAPARIN 30MG/0.3ML SYR SUBCUT SCH ×2 (08:49→20:03)
[2018-11-26] MEDS: FUROSEMIDE 40MG/4ML VIAL IVP SCH ×2 (08:50→17:39)
[2018-11-26] MEDS: BUDESONIDE 0.5MG/2ML NEB HHN SCH ×3 (10:00→21:52)
[2018-11-26 12:00] VITALS: BP 105/67
[2018-11-26] MEDS: IPRATROPIUM/ALBUTEROL 0.5-3(2.5)MG/3ML NEB HHN PRN (13:45)
[2018-11-26 16:00] VITALS: BP_SYST 105; BP_SYST 118; BP_DIAS 75; BP_DIAS 77; BP_DIAS 81
[2018-11-26 20:00] VITALS: BP 87/55
[2018-11-27] VITALS (7 sets, daily range): BP systolic 93–116; BP diastolic 63–86
[2018-11-27] MEDS: IPRATROPIUM/ALBUTEROL 0.5-3(2.5)MG/3ML NEB HHN PRN ×3 (05:25→21:28)
[2018-11-27] MEDS: FUROSEMIDE 40MG/4ML VIAL IVP SCH ×2 (06:35→17:12)
[2018-11-27 07:13] LABS: CHLORIDE 102 mEq/L (98-107)
[2018-11-27] MEDS: CARVEDILOL 6.25 MG TABLET PO SCH ×2 (08:36→20:03)
[2018-11-27] MEDS: LOSARTAN POTASSIUM 25 MG TABLET PO SCH (08:36)
[2018-11-27] MEDS: ENOXAPARIN 30MG/0.3ML SYR SUBCUT SCH ×2 (08:37→20:07)
[2018-11-27] MEDS: BUDESONIDE 0.5MG/2ML NEB HHN SCH ×2 (09:57→21:28)
[2018-11-27] MEDS ORDERED: FUROSEMIDE 40MG/4ML VIAL IVP NR (12:00)
[2018-11-27] MEDS: MULTIVITAMINS,THER W-MINERALS TABLET PO SCH (13:00)
[2018-11-27] MEDS: THIAMINE HCL 100MG TABLET PO SCH (13:00)
[2018-11-28] VITALS (7 sets, daily range): BP systolic 91–116; BP diastolic 50–79
[2018-11-28] MEDS: FUROSEMIDE 40MG/4ML VIAL IVP SCH ×2 (06:33→17:15)
[2018-11-28 08:16] LABS: CHLORIDE 103 mEq/L (98-107)
[2018-11-28] MEDS: BUDESONIDE 0.5MG/2ML NEB HHN SCH (08:21)
[2018-11-28] MEDS: IPRATROPIUM/ALBUTEROL 0.5-3(2.5)MG/3ML NEB HHN PRN (08:21)
[2018-11-28] MEDS: MULTIVITAMINS,THER W-MINERALS TABLET PO SCH (08:44)
[2018-11-28] MEDS: THIAMINE HCL 100MG TABLET PO SCH (08:44)
[2018-11-28] MEDS: LOSARTAN POTASSIUM 25 MG TABLET PO SCH (08:44)
[2018-11-28] MEDS: CARVEDILOL 6.25 MG TABLET PO SCH (08:45)
[2018-11-28] MEDS: ENOXAPARIN 30MG/0.3ML SYR SUBCUT SCH (08:45)
[2018-11-29 07:07] LABS: HIV SCREEN 4G Non Reactive (Non Reactive)
[2018-11-29] MEDS ORDERED: ENOXAPARIN 40MG/0.4ML SYR SUBCUT SCH (09:00)
== END 2018-11-28 17:30 | disposition home or self-care (01) | DRG 194 ==
LOC: ER 08:39 → 5WST 11:20 → EDBEDREQ 11:25 → ENRESERV 13:37
PROVIDERS: ADMIT Internal Medicine; ATTEND Internal Medicine
DX: I11.0 Hypertensive heart disease with heart failure (principal); I42.9 Cardiomyopathy, unspecified; E11.9 Type 2 diabetes mellitus without complications; F14.10 Cocaine abuse, uncomplicated; J44.9 Chronic obstructive pulmonary disease, unspecified; F17.210 Nicotine dependence, cigarettes, uncomplicated; M25.531 Pain in right wrist; Z59.0 Homelessness; Z71.6 Tobacco abuse counseling; I50.43 Acute on chronic combined systolic (congestive) and diastolic (congestive) heart failure; Z79.84 Long term (current) use of oral hypoglycemic drugs
CPT/HCPCS: 36415; 71045; 73110; 73130; 80048; 80305; 81003; 83880; 84484; 87389; 93005; 94640; 96374; 99285; J1650; J1940; J7620; J7626

== ENCOUNTER 2018-12-21 10:57 | Inpatient (IN) | payer MEDICAID ==
[~2018-12-21] VITALS: Ht 185.4 cm; Wt 109.8 kg
[2018-12-21] MEDS ORDERED: METHYLPREDNISOLONE SOD SUCC 125 MG/2 ML VIAL IV STA (11:39)
[2018-12-21] MEDS ORDERED: IPRATROPIUM BROMIDE (0.02%) 0.5MG/2.5ML NEB HHN STA (11:39)
[2018-12-21] MEDS ORDERED: MAGNESIUM 2 G PREMIX 50 ML IV ONE (11:45)
[2018-12-21] MEDS ORDERED: ALBUTEROL (0.083%) 2.5MG/3ML NEB HHN SCH (12:00)
[2018-12-21] MEDS ORDERED: FUROSEMIDE 40MG/4ML VIAL IV ONE (12:30)
[2018-12-21] MEDS ORDERED: NITROGLYCERIN OINT 1GM/INCH UDPKT TD ONE (12:30)
[2018-12-21 12:31] LABS: BASOPHILS % 0.1 % (0.0-2.0); CHLORIDE 107 mEq/L (98-107); EOSINOPHILS % 2.5 % (0.0-5.0); HEMATOCRIT. 44.6 % (42.0-52.0); HEMOGLOBIN. 14.3 g/dL (14.0-18.0); LYMPHOCYTES % 9.3 % (20.0-50.0); MEAN CORPUSCULAR HEMOGLOBIN 25.4 pg (28.0-32.0); MEAN CORPUSCULAR VOLUME 79.2 fL (80.0-94.0); MEAN PLATELET VOLUME 7.4 fl (7.4-10.4); MONOCYTES % 14.5 % (2.0-8.0); NEUTROPHILS % 73.6 % (40.0-76.0); PLATELET 248 x1000/uL (130-400); RED BLOOD CELL COUNT 5.63 mill/uL (4.7-6.1); RED CELL DISTRIBUTION WIDTH 21.7 % (11.6-14.6)
[2018-12-21 12:32] LABS: INR 1.3; PROTHROMBIN TIME 12.7 sec (9.6-11.0)
[2018-12-21 12:34] LABS: *BARBITURATES SCREEN URINE NEGATIVE (NEGATIVE)
[2018-12-21 12:35] LABS: *AMPHETAMINES SCREEN URINE NEGATIVE (NEGATIVE); *BENZODIAZEPINES SCREEN URINE NEGATIVE (NEGATIVE); *COCAINE SCREEN URINE PRESUMTIVE POSITIVE (NEGATIVE); CANNABINOID URINE SCREEN NEGATIVE (NEGATIVE); METHADONE URINE SCREEN NEGATIVE (NEGATIVE); OPIATES URINE SCREEN NEGATIVE (NEGATIVE); PHENCYCLIDINE URINE SCREEN NEGATIVE (NEGATIVE)
[2018-12-21 15:45] VITALS: BP 121/79
[2018-12-21] MEDS: BLOOD SUGAR DIAGNOSTIC STRIP TEST SCH ×2 (17:40→21:00)
[2018-12-21] MEDS ORDERED: IPRATROPIUM/ALBUTEROL 0.5-3(2.5)MG/3ML NEB HHN PRN (17:45)
[2018-12-21] MEDS ORDERED: HYDRALAZINE 20MG/ML VIAL IV PRN (17:45)
[2018-12-21] MEDS ORDERED: GUAIFENESIN 200MG/10ML SUGAR FREE UDC PO PRN (17:45)
[2018-12-21] MEDS ORDERED: CLONIDINE 0.1MG TABLET PO PRN (17:45)
[2018-12-21] MEDS ORDERED: DEXTROSE 50% WATER 50ML SYRINGE IV PRN (17:45)
[2018-12-21] MEDS ORDERED: DOCUSATE SODIUM 100MG CAPSULE PO PRN (17:45)
[2018-12-21] MEDS ORDERED: NA PHOS,M-B/NA PHOS,DI-BA ENEMA 118ML PR PRN (17:45)
[2018-12-21] MEDS ORDERED: MAGNESIUM/ALUMINUM HYDROXIDE/SIMETHICONE 30ML UDC PO PRN (17:45)
[2018-12-21] MEDS ORDERED: ACETAMINOPHEN 325MG TABLET PO PRN (17:45)
[2018-12-21] MEDS ORDERED: ONDANSETRON HCL 4MG/2ML INJ IV PRN (17:45)
[2018-12-21] MEDS: INSULIN LISPRO 100 UNITS/ML SUBCUT SCH ×2 (18:10→21:00)
[2018-12-21 20:00] VITALS: BP 106/60
[2018-12-21] MEDS: LOSARTAN POTASSIUM 50 MG TABLET PO SCH (20:04)
[2018-12-21] MEDS: NITROGLYCERIN OINT 1GM/INCH UDPKT TD SCH ×2 (20:05→23:00)
[2018-12-21] MEDS: FUROSEMIDE 40MG/4ML VIAL IVP SCH (20:05)
[2018-12-21] MEDS: ATORVASTATIN CALCIUM 20MG TABLET PO SCH (21:04)
[2018-12-21] MEDS: LORAZEPAM 2MG/ML CPJ IV PRN (21:04)
[2018-12-21] MEDS: ENOXAPARIN 40MG/0.4ML SYR SUBCUT SCH (21:05)
[2018-12-21] MEDS: DIPHENHYDRAMINE 50MG/ML VIAL IV PRN (21:22)
[2018-12-21] MEDS: SODIUM CHLORIDE 0.9% INJ 3ML FLUSH IVF SCH (21:23)
[2018-12-22] VITALS: BP 107/57
[2018-12-22 00:03] LABS: CREATINE KINASE MB FRACTION 3.5 ng/mL (0.5-3.6)
[2018-12-22 04:00] VITALS: BP 110/62
[2018-12-22] MEDS: SODIUM CHLORIDE 0.9% INJ 3ML FLUSH IVF SCH ×3 (05:23→21:40)
[2018-12-22] MEDS: NITROGLYCERIN OINT 1GM/INCH UDPKT TD SCH ×3 (05:24→21:51)
[2018-12-22] MEDS: BLOOD SUGAR DIAGNOSTIC STRIP TEST SCH ×4 (06:06→21:51)
[2018-12-22 08:00] VITALS: BP 106/66
[2018-12-22] MEDS: INSULIN LISPRO 100 UNITS/ML SUBCUT SCH ×4 (08:10→21:00)
[2018-12-22] MEDS: FUROSEMIDE 40MG/4ML VIAL IVP SCH ×2 (09:00→16:01)
[2018-12-22] MEDS: ASPIRIN 81MG EC TABLET PO SCH (09:14)
[2018-12-22] MEDS: LOSARTAN POTASSIUM 50 MG TABLET PO SCH (09:15)
[2018-12-22 12:00] VITALS: BP 125/85
[2018-12-22] MEDS: HYDROCODONE/ACETAMINOPHEN 10/325MG TABLET PO PRN ×2 (14:45→21:41)
[2018-12-22] MEDS ORDERED: TERBUTALINE SULFATE 1MG/ML VIAL SUBCUT SCH (15:30)
[2018-12-22 16:00] VITALS: BP 125/82
[2018-12-22] MEDS ORDERED: IPRATROPIUM/ALBUTEROL 0.5-3(2.5)MG/3ML NEB HHN SCH (16:00)
[2018-12-22] MEDS ORDERED: LEVOFLOXACIN 500MG PREMIX 100 ML IV SCH (16:00)
[2018-12-22] MEDS ORDERED: METHYLPREDNISOLONE SOD SUCC 125 MG/2 ML VIAL IV SCH (16:00)
[2018-12-22] MEDS: LORATADINE 10MG TABLET PO SCH (16:46)
[2018-12-22 20:00] VITALS: BP 105/72
[2018-12-22] MEDS: LORAZEPAM 2MG/ML CPJ IV PRN (20:29)
[2018-12-22] MEDS: ATORVASTATIN CALCIUM 20MG TABLET PO SCH (20:30)
[2018-12-22] MEDS: FLUTICASONE PROPIONATE 50MCG/SPRAY BOTTLE BOTHNSTRLS SCH (20:30)
[2018-12-22] MEDS: ENOXAPARIN 40MG/0.4ML SYR SUBCUT SCH (20:30)
[2018-12-22] MEDS: IPRATROPIUM/ALBUTEROL 0.5-3(2.5)MG/3ML NEB HHN SCH (21:27)
[2018-12-22] MEDS: METHYLPREDNISOLONE SOD SUCC 125 MG/2 ML VIAL IV SCH (21:40)
[2018-12-23] VITALS: BP 91/56
[2018-12-23] MEDS: MORPHINE SULFATE 2 MG/ML CPJ (NOT FOR IM USE) IV PRN ×2 (00:35→20:21)
[2018-12-23] MEDS: IPRATROPIUM/ALBUTEROL 0.5-3(2.5)MG/3ML NEB HHN SCH ×6 (01:21→22:12)
[2018-12-23 04:00] VITALS: BP 104/86
[2018-12-23] MEDS: METHYLPREDNISOLONE SOD SUCC 125 MG/2 ML VIAL IV SCH ×4 (04:24→22:20)
[2018-12-23] MEDS: NITROGLYCERIN OINT 1GM/INCH UDPKT TD SCH (06:00)
[2018-12-23] MEDS: SODIUM CHLORIDE 0.9% INJ 3ML FLUSH IVF SCH ×3 (06:00→22:20)
[2018-12-23] MEDS: BLOOD SUGAR DIAGNOSTIC STRIP TEST SCH ×4 (07:06→21:00)
[2018-12-23 07:11] LABS: HEMATOCRIT. 44.9 % (42.0-52.0); HEMOGLOBIN. 14.2 g/dL (14.0-18.0); MEAN CORPUSCULAR HEMOGLOBIN 25.3 pg (28.0-32.0); MEAN PLATELET VOLUME 7.6 fl (7.4-10.4); PLATELET 255 x1000/uL (130-400); RED BLOOD CELL COUNT 5.61 mill/uL (4.7-6.1); RED CELL DISTRIBUTION WIDTH 21.4 % (11.6-14.6)
[2018-12-23 08:00] VITALS: BP 119/77
[2018-12-23] MEDS: INSULIN LISPRO 100 UNITS/ML SUBCUT SCH ×4 (08:10→21:00)
[2018-12-23] MEDS: FUROSEMIDE 40MG/4ML VIAL IVP SCH ×2 (09:03→17:58)
[2018-12-23] MEDS: FLUTICASONE PROPIONATE 50MCG/SPRAY BOTTLE BOTHNSTRLS SCH ×2 (09:05→22:21)
[2018-12-23] MEDS: LOSARTAN POTASSIUM 50 MG TABLET PO SCH (09:09)
[2018-12-23] MEDS: LORATADINE 10MG TABLET PO SCH (09:09)
[2018-12-23] MEDS: ASPIRIN 81MG EC TABLET PO SCH (09:11)
[2018-12-23 09:38] LABS: PLATELET ESTIMATE NORMAL
[2018-12-23 12:00] VITALS: BP 102/66
[2018-12-23] MEDS ORDERED: TERBUTALINE SULFATE 1MG/ML VIAL SUBCUT NR (14:45)
[2018-12-23 16:00] VITALS: BP 111/55
[2018-12-23 16:30] LABS: CLARITY URINE CLEAR (CLEAR); COLOR URINE YELLOW (YELLOW); KETONES URINE NEGATIVE (NEGATIVE); LEUKOCYTE ESTERASE URINE NEGATIVE (NEGATIVE); NITRITE URINE NEGATIVE (NEGATIVE); OCCULT BLOOD URINE NEGATIVE (NEGATIVE); PH URINE 5.5 (4.5-8.0); PROTEIN URINE NEGATIVE (NEGATIVE); SPECIFIC GRAVITY URINE 1.013 (1.005-1.030)
[2018-12-23 17:39] LABS: CREATINE KINASE 144 IU/L (39-308)
[2018-12-23 20:00] VITALS: BP 130/70
[2018-12-23] MEDS: DIPHENHYDRAMINE 50MG/ML VIAL IV PRN (20:34)
[2018-12-23] MEDS: LORAZEPAM 2MG/ML CPJ IV PRN (21:01)
[2018-12-23] MEDS: THEOPHYLLINE ANHYDROUS 80 MG/15 ML 120ML PO SCH (22:20)
[2018-12-23] MEDS: ATORVASTATIN CALCIUM 20MG TABLET PO SCH (22:21)
[2018-12-24] VITALS: BP 103/60
[2018-12-24] MEDS: IPRATROPIUM/ALBUTEROL 0.5-3(2.5)MG/3ML NEB HHN SCH ×3 (02:17→12:41)
[2018-12-24] MEDS: METHYLPREDNISOLONE SOD SUCC 125 MG/2 ML VIAL IV SCH ×2 (03:40→09:48)
[2018-12-24 04:00] VITALS: BP 120/69
[2018-12-24] MEDS: THEOPHYLLINE ANHYDROUS 80 MG/15 ML 120ML PO SCH ×2 (06:11→13:06)
[2018-12-24] MEDS: BLOOD SUGAR DIAGNOSTIC STRIP TEST SCH ×2 (06:12→12:51)
[2018-12-24] MEDS: SODIUM CHLORIDE 0.9% INJ 3ML FLUSH IVF SCH ×2 (06:12→13:06)
[2018-12-24 08:00] VITALS: BP 117/80
[2018-12-24] MEDS ORDERED: ENOXAPARIN 30MG/0.3ML SYR SUBCUT SCH (09:00)
[2018-12-24] MEDS: FUROSEMIDE 40MG/4ML VIAL IVP SCH (09:45)
[2018-12-24] MEDS: LORATADINE 10MG TABLET PO SCH (09:45)
[2018-12-24] MEDS: LOSARTAN POTASSIUM 50 MG TABLET PO SCH (09:45)
[2018-12-24] MEDS: ASPIRIN 81MG EC TABLET PO SCH (09:45)
[2018-12-24] MEDS: FLUTICASONE PROPIONATE 50MCG/SPRAY BOTTLE BOTHNSTRLS SCH (09:45)
[2018-12-24] MEDS: INSULIN LISPRO 100 UNITS/ML SUBCUT SCH ×2 (09:46→12:51)
[2018-12-24 12:00] VITALS: BP 122/60
[2018-12-24] MEDS ORDERED: METHYLPREDNISOLONE SOD SUCC 125 MG/2 ML VIAL IV SCH (17:00)
== END 2018-12-24 16:11 | disposition left against medical advice (07) | DRG 816 ==
LOC: ER 10:57 → 7WST 13:08 → EDBEDREQ 13:12 → ENRESERV 14:37
PROVIDERS: ADMIT Internal Medicine; ATTEND Internal Medicine
DX: T40.5X1A Poisoning by cocaine, accidental (unintentional), initial encounter (principal); J96.00 Acute respiratory failure, unspecified whether with hypoxia or hypercapnia; E43 Unspecified severe protein-calorie malnutrition; N17.0 Acute kidney failure with tubular necrosis; I50.43 Acute on chronic combined systolic (congestive) and diastolic (congestive) heart failure; E11.22 Type 2 diabetes mellitus with diabetic chronic kidney disease; J68.0 Bronchitis and pneumonitis due to chemicals, gases, fumes and vapors; I13.0 Hypertensive heart and chronic kidney disease with heart failure and stage 1 through stage 4 chronic kidney disease, or unspecified chronic kidney disease; I27.81 Cor pulmonale (chronic); E66.9 Obesity, unspecified; E78.5 Hyperlipidemia, unspecified; F10.10 Alcohol abuse, uncomplicated; F14.10 Cocaine abuse, uncomplicated; F17.210 Nicotine dependence, cigarettes, uncomplicated; I42.0 Dilated cardiomyopathy; N18.9 Chronic kidney disease, unspecified; Z91.19 Patient's noncompliance with other medical treatment and regimen; I50.82 Biventricular heart failure; Z59.0 Homelessness; Z79.899 Other long term (current) drug therapy; Z82.49 Family history of ischemic heart disease and other diseases of the circulatory system; Z93.1 Gastrostomy status; D64.9 Anemia, unspecified; Y92.89 Other specified places as the place of occurrence of the external cause; Z68.31 Body mass index [BMI] 31.0-31.9, adult
CPT/HCPCS: 36415; 71045; 76604; 76770; 80048; 80305; 81003; 82550; 82553; 82962; 83735; 83880; 84484; 93005; 93306; 94640; 99291; J1200; J1650; J1815; J1940; J1956; J2060; J2270; J2930; J3105; J3475; J7611; J7620

== ENCOUNTER 2019-04-03 19:30 | Emergency (ER) | payer MEDICAID ==
[~2019-04-03] VITALS: Ht 180.3 cm; Wt 127.0 kg
[~2019-04-03 19:30] MED LIST changes: +CARV6.2548 MT; +COLC0.6C3 MT; +GABA-529 MT; +METF-414 MT
[2019-04-03 19:52] VITALS: BP 116/91
[2019-04-03] MEDS ORDERED: MAGNESIUM/ALUMINUM HYDROXIDE/SIMETHICONE 30ML UDC PO STA (20:08)
[2019-04-03] MEDS ORDERED: VISCOUS LIDOCAINE 2% 15 ML UDC PO STA (20:08)
[2019-04-03] MEDS ORDERED: FAMOTIDINE 20MG/2ML VIAL IV STA (20:08)
[2019-04-03] MEDS ORDERED: SODIUM CHLORIDE 0.9% 1,000 ML IV ONE (20:08)
[2019-04-03] MEDS ORDERED: ONDANSETRON HCL 4MG/2ML INJ IV STA (20:08)
[2019-04-03] MEDS ORDERED: MAGNESIUM CITRATE 300ML SOLUTION PO ONE (22:30)
== END 2019-04-03 22:45 | disposition home or self-care (01) ==
LOC: ER 19:30
DX: K59.00 Constipation, unspecified (principal); I11.0 Hypertensive heart disease with heart failure; I50.9 Heart failure, unspecified; E11.9 Type 2 diabetes mellitus without complications; J44.9 Chronic obstructive pulmonary disease, unspecified; F14.10 Cocaine abuse, uncomplicated; E78.00 Pure hypercholesterolemia, unspecified; Z93.0 Tracheostomy status; Z93.1 Gastrostomy status; Z79.84 Long term (current) use of oral hypoglycemic drugs
CPT/HCPCS: 71045; 99283; J2405; J3490; J7030; Z7610

== ENCOUNTER 2019-05-13 14:39 | Emergency (ER) | payer MEDICAID ==
[~2019-05-13] VITALS: Ht 170.2 cm; Wt 65.0 kg
[2019-05-13] MEDS ORDERED: ASPIRIN 81MG TABLET PO ONE (16:30)
[2019-05-13 17:10] LABS: CHLORIDE 102 mEq/L (98-107)
[2019-05-13] MEDS ORDERED: FUROSEMIDE 40MG/4ML VIAL IVP ONE (17:30)
[2019-05-13 17:37] LABS: BASOPHILS % 1.3 % (0.0-2.0); EOSINOPHILS % 4.5 % (0.0-5.0); HEMATOCRIT. 47.1 % (42.0-52.0); HEMOGLOBIN. 15.5 g/dL (14.0-18.0); LYMPHOCYTES % 12.4 % (20.0-50.0); MEAN CORPUSCULAR HEMOGLOBIN 27.7 pg (28.0-32.0); MEAN CORPUSCULAR VOLUME 84.2 fL (80.0-94.0); MEAN PLATELET VOLUME 8.4 fl (7.4-10.4); MONOCYTES % 13.2 % (2.0-8.0); NEUTROPHILS % 68.6 % (40.0-76.0); PLATELET 210 x1000/uL (130-400); RED CELL DISTRIBUTION WIDTH 19.2 % (11.6-14.6)
[2019-05-13 19:17] VITALS: BP 121/69
[2019-05-14] MEDS ORDERED: GUAIFENESIN 200MG/10ML SUGAR FREE UDC PO PRN
[2019-05-14] MEDS ORDERED: ENOXAPARIN 40MG/0.4ML SYR SUBCUT SCH
[2019-05-14] MEDS ORDERED: METHYLPREDNISOLONE SOD SUCC 125 MG/2 ML VIAL IV SCH
[2019-05-14] MEDS ORDERED: NA PHOS,M-B/NA PHOS,DI-BA ENEMA 118ML PR PRN
[2019-05-14] MEDS ORDERED: MORPHINE SULFATE 2 MG/ML CPJ (NOT FOR IM USE) IV PRN
[2019-05-14] MEDS ORDERED: ONDANSETRON HCL 4MG/2ML INJ IV PRN
[2019-05-14] MEDS ORDERED: HYDROCODONE/ACETAMINOPHEN 5/325MG TABLET PO PRN
[2019-05-14] MEDS ORDERED: MAGNESIUM/ALUMINUM HYDROXIDE/SIMETHICONE 30ML UDC PO PRN
[2019-05-14] MEDS ORDERED: LEVOFLOXACIN 500MG PREMIX 100 ML IV SCH
[2019-05-14] MEDS ORDERED: CLONIDINE 0.1MG TABLET PO PRN
[2019-05-14] MEDS ORDERED: DOCUSATE SODIUM 100MG CAPSULE PO PRN
[2019-05-14] MEDS ORDERED: LORAZEPAM 2MG/ML CPJ IV PRN
[2019-05-14] MEDS ORDERED: DIPHENHYDRAMINE 50MG/ML VIAL IV PRN
[2019-05-14] MEDS ORDERED: ACETAMINOPHEN 325MG TABLET PO PRN
[2019-05-14] MEDS ORDERED: IPRATROPIUM/ALBUTEROL 0.5-3(2.5)MG/3ML NEB NEB PRN
[2019-05-14] MEDS ORDERED: ASPIRIN 81MG EC TABLET PO SCH (09:00)
[2019-05-14] MEDS ORDERED: FUROSEMIDE 40MG/4ML VIAL IV SCH (09:00)
== END 2019-05-13 19:48 | disposition home or self-care (01) ==
LOC: ER 14:43 → CANBEDREQ 20:37
DX: J96.00 Acute respiratory failure, unspecified whether with hypoxia or hypercapnia (principal); I11.0 Hypertensive heart disease with heart failure; I50.9 Heart failure, unspecified; I21.4 Non-ST elevation (NSTEMI) myocardial infarction; J44.9 Chronic obstructive pulmonary disease, unspecified; I25.10 Atherosclerotic heart disease of native coronary artery without angina pectoris; E11.9 Type 2 diabetes mellitus without complications; Z93.0 Tracheostomy status; Z79.82 Long term (current) use of aspirin
CPT/HCPCS: 36415; 71045; 80053; 83880; 84484; 85025; 93005; 96374; 99285; J1940; Z7610

== ENCOUNTER 2019-05-17 08:58 | Emergency (ER) | payer MEDICAID ==
[~2019-05-17] VITALS: Ht 185.4 cm; Wt 109.0 kg
[2019-05-17] MEDS ORDERED: KETOROLAC 60MG/2ML VIAL IM ONE (09:15)
[2019-05-17 10:36] VITALS: BP 100/87
== END 2019-05-17 10:37 | disposition home or self-care (01) ==
LOC: ER 08:58
DX: M79.605 Pain in left leg (principal); M79.604 Pain in right leg; I87.2 Venous insufficiency (chronic) (peripheral); I11.0 Hypertensive heart disease with heart failure; I50.9 Heart failure, unspecified; J44.9 Chronic obstructive pulmonary disease, unspecified; E11.9 Type 2 diabetes mellitus without complications; F14.10 Cocaine abuse, uncomplicated; Z93.0 Tracheostomy status; Z79.899 Other long term (current) drug therapy
CPT/HCPCS: 96372; 99283; J1885

== ENCOUNTER 2019-05-22 07:50 | Inpatient (IN) | payer MEDICAID ==
[~2019-05-22] VITALS: Ht 175.3 cm; Wt 108.0 kg
[2019-05-22] VITALS (7 sets, daily range): BP systolic 93–141; BP diastolic 40–86
[2019-05-22] MEDS: IPRATROPIUM/ALBUTEROL 0.5-3(2.5)MG/3ML NEB HHN SCH ×2 (01:58→20:53)
[2019-05-22 08:38] LABS: BG BASE EXCESS -2.1 mmol/L (-2.0-2.0); BG CARBOXYHEMOGLOBIN 1.7 % (0.5-1.5); BG DEOXYHEMOGLOBIN 0.5 % (0.0-5.0); BG FRACTION INSPIRED OXYGEN 100; BG HCO3 ACT 18.4 mmol/L (22.0-26.0); BG METHEMOGLOBIN 0.2 % (0.0-1.5); BG OXYGEN SATURATION 99.5 % (92.0-98.5); BG OXYHEMOGLOBIN 97.6 % (94.0-97.0); BG PH 7.521 (7.350-7.450); BG PO2 235.2 mmHg (75.0-100.0); BG SAMPLE SITE RIGHT BRACHIAL; BG TOTAL HEMOGLOBIN 15.7 g/dL (12.0-18.0); BG VENT MODE MASK - NRB
[2019-05-22] MEDS ORDERED: ALBUTEROL (0.083%) 2.5MG/3ML NEB HHN STA (08:44)
[2019-05-22] MEDS ORDERED: METHYLPREDNISOLONE SOD SUCC 125 MG/2 ML VIAL IV STA (08:44)
[2019-05-22] MEDS ORDERED: IPRATROPIUM BROMIDE (0.02%) 0.5MG/2.5ML NEB HHN STA (08:44)
[2019-05-22 09:04] LABS: BASOPHILS % 0.8 % (0.0-2.0); HEMATOCRIT. 47.2 % (42.0-52.0); HEMOGLOBIN. 15.4 g/dL (14.0-18.0); LYMPHOCYTES % 19.3 % (20.0-50.0); MEAN CORPUSCULAR HEMOGLOBIN 27.9 pg (28.0-32.0); MEAN CORPUSCULAR VOLUME 85.3 fL (80.0-94.0); MEAN PLATELET VOLUME 8.1 fl (7.4-10.4); MONOCYTES % 11.5 % (2.0-8.0); NEUTROPHILS % 62.4 % (40.0-76.0); PLATELET 179 x1000/uL (130-400); RED BLOOD CELL COUNT 5.53 mill/uL (4.7-6.1); RED CELL DISTRIBUTION WIDTH 19.2 % (11.6-14.6)
[2019-05-22 09:10] LABS: CHLORIDE 102 mEq/L (98-107)
[2019-05-22] MEDS ORDERED: FUROSEMIDE 40MG/4ML VIAL IVP ONE (09:15)
[2019-05-22] MEDS ORDERED: PIPERACILLIN/TAZ 3.375G PREMIX 50 ML IV ONE (09:15)
[2019-05-22] MEDS ORDERED: LEVOFLOXACIN 750MG PREMIX 150 ML IV ONE (09:15)
[2019-05-22] MEDS: FUROSEMIDE 40MG/4ML VIAL IVP SCH ×2 (14:00→18:05)
[2019-05-22 16:24] LABS: BG BASE EXCESS -4.4 mmol/L (-2.0-2.0); BG DEOXYHEMOGLOBIN 4.8 % (0.0-5.0); BG FRACTION INSPIRED OXYGEN 21; BG HCO3 ACT 18.7 mmol/L (22.0-26.0); BG METHEMOGLOBIN 0.4 % (0.0-1.5); BG OXYGEN SATURATION 95.1 % (92.0-98.5); BG OXYHEMOGLOBIN 93.8 % (94.0-97.0); BG PCO2 30.1 mmHg (35.0-45.0); BG PH 7.412 (7.350-7.450); BG PO2 79.9 mmHg (75.0-100.0); BG SAMPLE SITE RIGHT RADIAL; BG TOTAL HEMOGLOBIN 16.4 g/dL (12.0-18.0); BG VENT MODE ROOM AIR
[2019-05-22] MEDS: GABAPENTIN 100MG CAPSULE PO SCH (17:00)
[2019-05-22] MEDS ORDERED: ENOXAPARIN 40MG/0.4ML SYR SUBCUT SCH (17:00)
[2019-05-22] MEDS ORDERED: CLONIDINE 0.1MG TABLET PO PRN (17:00)
[2019-05-22] MEDS ORDERED: FUROSEMIDE 40MG/4ML VIAL IVP SCH (17:15)
[2019-05-22] MEDS: MAGNESIUM/ALUMINUM HYDROXIDE/SIMETHICONE 30ML UDC PO PRN (18:03)
[2019-05-22] MEDS: PANTOPRAZOLE SODIUM 40 MG/VIAL IV SCH (18:06)
[2019-05-22] MEDS: METHYLPREDNISOLONE SOD SUCC 40 MG/ML VIAL IV SCH (18:08)
[2019-05-22] MEDS: HYDROCODONE/ACETAMINOPHEN 5/325MG TABLET PO PRN (19:04)
[2019-05-22] MEDS: ATORVASTATIN CALCIUM 20MG TABLET PO SCH (20:52)
[2019-05-22] MEDS: ONDANSETRON HCL 4MG/2ML INJ IV PRN (20:52)
[2019-05-22] MEDS: LORAZEPAM 2MG/ML CPJ IV PRN (20:52)
[2019-05-22] MEDS: BUDESONIDE 0.5MG/2ML NEB HHN SCH (20:53)
[2019-05-22] MEDS: CARVEDILOL 6.25 MG TABLET PO SCH (20:55)
[2019-05-22] MEDS: ENOXAPARIN 30MG/0.3ML SYR SUBCUT SCH (21:00)
[2019-05-22] MEDS ORDERED: DEXTROSE 50% WATER 50ML SYRINGE IV PRN (23:45)
[2019-05-23] VITALS (13 sets, daily range): BP systolic 67–135; BP diastolic 38–75
[2019-05-23 00:11] LABS: CREATINE KINASE MB FRACTION 7.9 ng/mL (0.5-3.6)
[2019-05-23] MEDS: METHYLPREDNISOLONE SOD SUCC 40 MG/ML VIAL IV SCH ×3 (02:00→18:37)
[2019-05-23 06:12] LABS: HEMATOCRIT. 49.9 % (42.0-52.0); HEMOGLOBIN. 16.3 g/dL (14.0-18.0); MEAN CORPUSCULAR HEMOGLOBIN 28.1 pg (28.0-32.0); MEAN CORPUSCULAR VOLUME 86.3 fL (80.0-94.0); MEAN PLATELET VOLUME 8.8 fl (7.4-10.4); PLATELET 229 x1000/uL (130-400); RED BLOOD CELL COUNT 5.78 mill/uL (4.7-6.1); RED CELL DISTRIBUTION WIDTH 19.8 % (11.6-14.6)
[2019-05-23 06:23] LABS: CREATINE KINASE MB FRACTION 8.1 ng/mL (0.5-3.6)
[2019-05-23] MEDS: FUROSEMIDE 40MG/4ML VIAL IVP SCH (07:15)
[2019-05-23] MEDS: BLOOD SUGAR DIAGNOSTIC STRIP TEST SCH ×4 (07:30→21:00)
[2019-05-23] MEDS: INSULIN LISPRO 100 UNITS/ML SUBCUT SCH ×4 (07:44→21:00)
[2019-05-23] MEDS: PANTOPRAZOLE SODIUM 40 MG/VIAL IV SCH (09:00)
[2019-05-23] MEDS: BUDESONIDE 0.5MG/2ML NEB HHN SCH ×3 (09:00→20:43)
[2019-05-23] MEDS: ENOXAPARIN 30MG/0.3ML SYR SUBCUT SCH ×2 (09:00→21:00)
[2019-05-23] MEDS ORDERED: POTASSIUM CHLORIDE 20MEQ TABLET SR PO SCH (09:00)
[2019-05-23] MEDS: IPRATROPIUM/ALBUTEROL 0.5-3(2.5)MG/3ML NEB HHN SCH ×3 (09:00→20:42)
[2019-05-23] MEDS: CARVEDILOL 6.25 MG TABLET PO SCH ×2 (09:00→20:23)
[2019-05-23] MEDS: GABAPENTIN 100MG CAPSULE PO SCH ×3 (09:00→18:38)
[2019-05-23] MEDS: COLCHICINE 0.6MG TABLET PO SCH (09:00)
[2019-05-23] MEDS: ASPIRIN 81MG EC TABLET PO SCH (09:00)
[2019-05-23] MEDS ORDERED: LEVOFLOXACIN 250MG TABLET PO NR (11:00)
[2019-05-23 11:35] LABS: NUCLEATED RED BLOOD CELLS 1 /100 WBC; PLATELET ESTIMATE NORMAL
[2019-05-23] MEDS ORDERED: SODIUM POLYSTYRENE SULFONATE 15 G/60 ML BOT PO NR (14:00)
[2019-05-23 16:53] LABS: BG BASE EXCESS -5.3 mmol/L (-2.0-2.0); BG CARBOXYHEMOGLOBIN 0.9 % (0.5-1.5); BG DEOXYHEMOGLOBIN 2.2 % (0.0-5.0); BG HCO3 ACT 17.1 mmol/L (22.0-26.0); BG METHEMOGLOBIN 0.3 % (0.0-1.5); BG OXYGEN SATURATION 97.8 % (92.0-98.5); BG OXYHEMOGLOBIN 96.6 % (94.0-97.0); BG PCO2 26.5 mmHg (35.0-45.0); BG PH 7.428 (7.350-7.450); BG PO2 104.1 mmHg (75.0-100.0); BG SAMPLE SITE RIGHT RADIAL; BG TOTAL HEMOGLOBIN 16.3 g/dL (12.0-18.0); BG VENT MODE NASAL CANNULA
[2019-05-23] MEDS: MIDODRINE HCL 5MG TABLET PO SCH (20:00)
[2019-05-23] MEDS: ATORVASTATIN CALCIUM 20MG TABLET PO SCH (20:22)
[2019-05-23] MEDS: LORAZEPAM 2MG/ML CPJ IV PRN (23:20)
[2019-05-23] MEDS: ONDANSETRON HCL 4MG/2ML INJ IV PRN (23:20)
[2019-05-24] VITALS (12 sets, daily range): BP systolic 76–138; BP diastolic 41–79
[2019-05-24] MEDS: IPRATROPIUM/ALBUTEROL 0.5-3(2.5)MG/3ML NEB HHN SCH ×4 (01:59→21:40)
[2019-05-24] MEDS: METHYLPREDNISOLONE SOD SUCC 40 MG/ML VIAL IV SCH ×3 (02:00→17:22)
[2019-05-24] MEDS: INSULIN LISPRO 100 UNITS/ML SUBCUT SCH ×4 (08:00→21:00)
[2019-05-24] MEDS: BLOOD SUGAR DIAGNOSTIC STRIP TEST SCH ×4 (08:13→21:00)
[2019-05-24] MEDS: BUDESONIDE 0.5MG/2ML NEB HHN SCH ×2 (08:23→21:40)
[2019-05-24] MEDS: GABAPENTIN 100MG CAPSULE PO SCH ×3 (09:00→17:22)
[2019-05-24] MEDS: COLCHICINE 0.6MG TABLET PO SCH (09:00)
[2019-05-24] MEDS: ENOXAPARIN 30MG/0.3ML SYR SUBCUT SCH (09:00)
[2019-05-24] MEDS: CARVEDILOL 6.25 MG TABLET PO SCH ×2 (09:00→21:00)
[2019-05-24] MEDS: FAMOTIDINE 20MG/2ML VIAL IV SCH (09:00)
[2019-05-24] MEDS: ASPIRIN 81MG EC TABLET PO SCH (09:00)
[2019-05-24] MEDS: MIDODRINE HCL 5MG TABLET PO SCH ×2 (09:00→13:38)
[2019-05-24 11:41] LABS: HEMATOCRIT. 52.2 % (42.0-52.0); HEMOGLOBIN. 16.9 g/dL (14.0-18.0); MEAN CORPUSCULAR HEMOGLOBIN 27.9 pg (28.0-32.0); MEAN CORPUSCULAR VOLUME 86.5 fL (80.0-94.0); MEAN PLATELET VOLUME 8.6 fl (7.4-10.4); PLATELET 168 x1000/uL (130-400); RED BLOOD CELL COUNT 6.04 mill/uL (4.7-6.1); RED CELL DISTRIBUTION WIDTH 19.7 % (11.6-14.6)
[2019-05-24 12:07] LABS: PLATELET ESTIMATE NORMAL
[2019-05-24] MEDS: SODIUM POLYSTYRENE SULFONATE 15 G/60 ML BOT PO SCH ×2 (13:39→14:00)
[2019-05-24] MEDS: FUROSEMIDE 40MG TABLET PO SCH (13:41)
[2019-05-24] MEDS ORDERED: ALBUTEROL (0.083%) 2.5MG/3ML NEB HHN SCH (14:00)
[2019-05-24 16:20] LABS: CLARITY URINE CLOUDY (CLEAR); COLOR URINE DARK YELLOW (YELLOW); KETONES URINE TRACE (NEGATIVE); LEUKOCYTE ESTERASE URINE TRACE (NEGATIVE); NITRITE URINE NEGATIVE (NEGATIVE); OCCULT BLOOD URINE NEGATIVE (NEGATIVE); PROTEIN URINE 1+ (NEGATIVE); SPECIFIC GRAVITY URINE 1.021 (1.005-1.030)
[2019-05-24 16:31] LABS: *AMPHETAMINES SCREEN URINE NEGATIVE (NEGATIVE); *BARBITURATES SCREEN URINE NEGATIVE (NEGATIVE); *BENZODIAZEPINES SCREEN URINE NEGATIVE (NEGATIVE)
[2019-05-24 16:32] LABS: *COCAINE SCREEN URINE PRESUMTIVE POSITIVE (NEGATIVE); METHADONE URINE SCREEN NEGATIVE (NEGATIVE); OPIATES URINE SCREEN PRESUMTIVE POSITIVE (NEGATIVE)
[2019-05-24 16:33] LABS: CANNABINOID URINE SCREEN NEGATIVE (NEGATIVE); PHENCYCLIDINE URINE SCREEN NEGATIVE (NEGATIVE)
[2019-05-24] MEDS: DOBUTAMINE 250MG PREMIX 250 ML IV SCH (16:51)
[2019-05-24] MEDS: ATORVASTATIN CALCIUM 20MG TABLET PO SCH (21:40)
[2019-05-24] MEDS: ONDANSETRON HCL 4MG/2ML INJ IV PRN (22:03)
[2019-05-24] MEDS: HYDROCODONE/ACETAMINOPHEN 5/325MG TABLET PO PRN (23:21)
[2019-05-25] VITALS (12 sets, daily range): BP systolic 85–128; BP diastolic 37–81
[2019-05-25] MEDS: DOBUTAMINE 250MG PREMIX 250 ML IV SCH ×2 (01:57→16:00)
[2019-05-25] MEDS: METHYLPREDNISOLONE SOD SUCC 40 MG/ML VIAL IV SCH ×2 (02:04→10:16)
[2019-05-25] MEDS: LORAZEPAM 2MG/ML CPJ IV PRN (02:39)
[2019-05-25 04:23] LABS: BG CARBOXYHEMOGLOBIN 0.2 % (0.5-1.5); BG DEOXYHEMOGLOBIN 3.2 % (0.0-5.0); BG FRACTION INSPIRED OXYGEN 32; BG HCO3 ACT 10.9 mmol/L (22.0-26.0); BG METHEMOGLOBIN 0.3 % (0.0-1.5); BG OXYGEN SATURATION 96.8 % (92.0-98.5); BG OXYHEMOGLOBIN 96.3 % (94.0-97.0); BG PCO2 20.5 mmHg (35.0-45.0); BG PH 7.342 (7.350-7.450); BG PO2 100.7 mmHg (75.0-100.0); BG SAMPLE SITE RIGHT RADIAL; BG TOTAL HEMOGLOBIN 17.1 g/dL (12.0-18.0); BG VENT MODE NASAL CANNULA
[2019-05-25 06:38] LABS: HEMATOCRIT. 49.1 % (42.0-52.0); HEMOGLOBIN. 16.1 g/dL (14.0-18.0); MEAN CORPUSCULAR HEMOGLOBIN 28.2 pg (28.0-32.0); MEAN CORPUSCULAR VOLUME 86.1 fL (80.0-94.0); MEAN PLATELET VOLUME 9.2 fl (7.4-10.4); PLATELET 197 x1000/uL (130-400)
[2019-05-25] MEDS: BLOOD SUGAR DIAGNOSTIC STRIP TEST SCH ×4 (07:30→21:00)
[2019-05-25] MEDS: IPRATROPIUM/ALBUTEROL 0.5-3(2.5)MG/3ML NEB HHN SCH ×2 (07:38→15:53)
[2019-05-25] MEDS: BUDESONIDE 0.5MG/2ML NEB HHN SCH (07:38)
[2019-05-25 07:40] LABS: PHOSPHORUS 8.5 mg/dL (2.5-4.9)
[2019-05-25] MEDS ORDERED: CALCIUM GLUCONATE 1,000 MG in DEXT 5% WATER 90 ML IV STA (07:58)
[2019-05-25] MEDS: INSULIN LISPRO 100 UNITS/ML SUBCUT SCH ×4 (08:00→21:00)
[2019-05-25 08:29] LABS: NUCLEATED RED BLOOD CELLS 2 /100 WBC; PLATELET ESTIMATE NORMAL
[2019-05-25] MEDS: CALCIUM GLUCONATE 1000 MG in DEXTROSE 5% WATER 100 ML IV SCH ×2 (08:45→09:09)
[2019-05-25] MEDS ORDERED: DEXTROSE 50% WATER 50ML SYRINGE IV SCH (09:00)
[2019-05-25] MEDS: ENOXAPARIN 40MG/0.4ML SYR SUBCUT SCH (09:00)
[2019-05-25] MEDS ORDERED: SODIUM BICARBONATE 8.4% 1 MEQ/ML 50ML SYR IV SCH ×2 (09:00)
[2019-05-25] MEDS: CARVEDILOL 6.25 MG TABLET PO SCH ×2 (09:00→21:00)
[2019-05-25] MEDS: ASPIRIN 81MG EC TABLET PO SCH (09:00)
[2019-05-25] MEDS ORDERED: SODIUM POLYSTYRENE SULFONATE 15 G/60 ML BOT PO SCH (09:00)
[2019-05-25 09:06] LABS: INR 2.1; PARTIAL THROMBOPLASTIN TIME 30.7 sec (23.4-31.0); PROTHROMBIN TIME 22.2 sec (9.6-11.0)
[2019-05-25] MEDS ORDERED: INSULIN REGULAR (HUMULIN R) UD 100 UNITS/ML SYR IV SCH (09:30)
[2019-05-25] MEDS ORDERED: PHYTONADIONE 10MG/ML AMP SUBCUT SCH (10:00)
[2019-05-25] MEDS: GABAPENTIN 100MG CAPSULE PO SCH ×3 (10:15→18:15)
[2019-05-25] MEDS: COLCHICINE 0.6MG TABLET PO SCH (10:16)
[2019-05-25] MEDS: METOLAZONE 2.5MG TABLET PO SCH (10:16)
[2019-05-25] MEDS: FUROSEMIDE 40MG TABLET PO SCH (10:16)
[2019-05-25] MEDS: FAMOTIDINE 20MG/2ML VIAL IV SCH (10:16)
[2019-05-25] MEDS: LEVOFLOXACIN 500MG TABLET PO SCH (15:59)
[2019-05-25] MEDS: ATORVASTATIN CALCIUM 20MG TABLET PO SCH (21:00)
[2019-05-26] VITALS (12 sets, daily range): BP systolic 82–116; BP diastolic 29–77
[2019-05-26] MEDS: BUDESONIDE 0.5MG/2ML NEB HHN SCH (02:30)
[2019-05-26] MEDS: DOBUTAMINE 250MG PREMIX 250 ML IV SCH ×4 (02:34→22:51)
[2019-05-26] MEDS: BLOOD SUGAR DIAGNOSTIC STRIP TEST SCH ×4 (07:50→21:25)
[2019-05-26] MEDS: INSULIN LISPRO 100 UNITS/ML SUBCUT SCH ×5 (08:00→22:50)
[2019-05-26] MEDS: FUROSEMIDE 40MG TABLET PO SCH (08:52)
[2019-05-26] MEDS: ASPIRIN 81MG EC TABLET PO SCH (08:52)
[2019-05-26] MEDS: METOLAZONE 2.5MG TABLET PO SCH (08:52)
[2019-05-26] MEDS: COLCHICINE 0.6MG TABLET PO SCH (08:52)
[2019-05-26] MEDS: FAMOTIDINE 20MG/2ML VIAL IV SCH (08:52)
[2019-05-26] MEDS: GABAPENTIN 100MG CAPSULE PO SCH ×3 (08:53→17:51)
[2019-05-26] MEDS: ENOXAPARIN 40MG/0.4ML SYR SUBCUT SCH (08:53)
[2019-05-26] MEDS: CARVEDILOL 6.25 MG TABLET PO SCH ×2 (08:53→21:00)
[2019-05-26] MEDS: IPRATROPIUM/ALBUTEROL 0.5-3(2.5)MG/3ML NEB HHN SCH ×3 (09:08→20:36)
[2019-05-26] MEDS ORDERED: DOBUTAMINE 250MG PREMIX 250 ML IV SCH (12:12)
[2019-05-26] MEDS: HYDROCODONE/ACETAMINOPHEN 5/325MG TABLET PO PRN (15:22)
[2019-05-26] MEDS: ATORVASTATIN CALCIUM 20MG TABLET PO SCH ×2 (21:00→22:49)
[2019-05-26] MEDS: ACETAMINOPHEN 325MG TABLET PO PRN (22:49)
[2019-05-27] VITALS (13 sets, daily range): BP systolic 92–141; BP diastolic 60–93
[2019-05-27] MEDS: IPRATROPIUM/ALBUTEROL 0.5-3(2.5)MG/3ML NEB HHN SCH ×4 (01:04→20:21)
[2019-05-27] MEDS: DOBUTAMINE 250MG PREMIX 250 ML IV SCH ×3 (04:58→18:21)
[2019-05-27 07:34] LABS: HEMATOCRIT. 43.5 % (42.0-52.0); HEMOGLOBIN. 14.3 g/dL (14.0-18.0); MEAN CORPUSCULAR HEMOGLOBIN 28.1 pg (28.0-32.0); MEAN CORPUSCULAR VOLUME 85.2 fL (80.0-94.0); PLATELET 107 x1000/uL (130-400); RED CELL DISTRIBUTION WIDTH 19.5 % (11.6-14.6)
[2019-05-27] MEDS: BLOOD SUGAR DIAGNOSTIC STRIP TEST SCH ×4 (08:04→20:04)
[2019-05-27] MEDS: ENOXAPARIN 40MG/0.4ML SYR SUBCUT SCH (09:00)
[2019-05-27] MEDS: CARVEDILOL 6.25 MG TABLET PO SCH ×2 (09:00→21:00)
[2019-05-27] MEDS: ASPIRIN 81MG EC TABLET PO SCH (09:00)
[2019-05-27] MEDS: GABAPENTIN 100MG CAPSULE PO SCH ×3 (09:31→16:38)
[2019-05-27] MEDS: METOLAZONE 2.5MG TABLET PO SCH (09:31)
[2019-05-27] MEDS: COLCHICINE 0.6MG TABLET PO SCH (09:31)
[2019-05-27] MEDS: FAMOTIDINE 20MG/2ML VIAL IV SCH (09:32)
[2019-05-27] MEDS: FUROSEMIDE 40MG TABLET PO SCH (09:32)
[2019-05-27] MEDS: INSULIN LISPRO 100 UNITS/ML SUBCUT SCH ×4 (09:34→20:11)
[2019-05-27 11:01] LABS: NUCLEATED RED BLOOD CELLS 1 /100 WBC
[2019-05-27 11:02] LABS: PLATELET ESTIMATE DECREASED
[2019-05-27] MEDS: LEVOFLOXACIN 500MG TABLET PO SCH (11:44)
[2019-05-27] MEDS: ATORVASTATIN CALCIUM 20MG TABLET PO SCH (21:13)
[2019-05-27] MEDS: HYDROCODONE/ACETAMINOPHEN 5/325MG TABLET PO PRN (21:15)
[2019-05-28] VITALS (16 sets, daily range): BP systolic 93–121; BP diastolic 49–101
[2019-05-28] MEDS: DOBUTAMINE 250MG PREMIX 250 ML IV SCH ×3 (01:26→14:24)
[2019-05-28] MEDS: HYDROCODONE/ACETAMINOPHEN 5/325MG TABLET PO PRN ×2 (01:29→21:48)
[2019-05-28] MEDS: IPRATROPIUM/ALBUTEROL 0.5-3(2.5)MG/3ML NEB HHN SCH ×4 (02:15→21:27)
[2019-05-28] MEDS: BLOOD SUGAR DIAGNOSTIC STRIP TEST SCH ×4 (07:53→21:00)
[2019-05-28] MEDS: INSULIN LISPRO 100 UNITS/ML SUBCUT SCH ×4 (08:00→21:00)
[2019-05-28 08:03] LABS: HEMATOCRIT. 41.6 % (42.0-52.0); MEAN CORPUSCULAR HEMOGLOBIN 28.4 pg (28.0-32.0); MEAN CORPUSCULAR VOLUME 84.5 fL (80.0-94.0); MEAN PLATELET VOLUME 9.2 fl (7.4-10.4); PLATELET 99 x1000/uL (130-400); RED BLOOD CELL COUNT 4.92 mill/uL (4.7-6.1); RED CELL DISTRIBUTION WIDTH 19.6 % (11.6-14.6)
[2019-05-28] MEDS: COLCHICINE 0.6MG TABLET PO SCH (08:24)
[2019-05-28] MEDS: FUROSEMIDE 40MG TABLET PO SCH (08:24)
[2019-05-28] MEDS: FAMOTIDINE 20MG/2ML VIAL IV SCH (08:24)
[2019-05-28] MEDS: METOLAZONE 2.5MG TABLET PO SCH (08:25)
[2019-05-28] MEDS: CARVEDILOL 6.25 MG TABLET PO SCH ×2 (08:25→21:00)
[2019-05-28] MEDS: ENOXAPARIN 40MG/0.4ML SYR SUBCUT SCH (08:26)
[2019-05-28] MEDS: GABAPENTIN 100MG CAPSULE PO SCH ×3 (08:26→16:31)
[2019-05-28] MEDS: ASPIRIN 81MG EC TABLET PO SCH (08:26)
[2019-05-28] MEDS ORDERED: POTASSIUM CHLORIDE 20MEQ TABLET SR PO NR (12:00)
[2019-05-28 13:05] LABS: PLATELET ESTIMATE DECREASED
[2019-05-28 15:54] LABS: PHOSPHORUS 2.9 mg/dL (2.5-4.9)
[2019-05-28] MEDS ORDERED: MAGNESIUM 2 G PREMIX 50 ML IV NR (18:30)
[2019-05-28] MEDS: ATORVASTATIN CALCIUM 20MG TABLET PO SCH (21:48)
[2019-05-29] VITALS (10 sets, daily range): BP systolic 83–106; BP diastolic 52–70
[2019-05-29] MEDS: MAGNESIUM/ALUMINUM HYDROXIDE/SIMETHICONE 30ML UDC PO PRN (02:35)
[2019-05-29] MEDS: HYDROCODONE/ACETAMINOPHEN 5/325MG TABLET PO PRN (05:19)
[2019-05-29] MEDS: INSULIN LISPRO 100 UNITS/ML SUBCUT SCH ×4 (08:00→21:11)
[2019-05-29] MEDS: BLOOD SUGAR DIAGNOSTIC STRIP TEST SCH ×4 (08:19→21:09)
[2019-05-29 09:43] LABS: HEMATOCRIT. 42.5 % (42.0-52.0); MEAN CORPUSCULAR HEMOGLOBIN 28.1 pg (28.0-32.0); MEAN PLATELET VOLUME 8.7 fl (7.4-10.4); PLATELET 106 x1000/uL (130-400); RED CELL DISTRIBUTION WIDTH 19.7 % (11.6-14.6)
[2019-05-29 09:49] LABS: INR 1.1; PROTHROMBIN TIME 12.3 sec (9.6-11.0)
[2019-05-29 09:59] LABS: CHLORIDE 94 mEq/L (98-107)
[2019-05-29] MEDS: IPRATROPIUM/ALBUTEROL 0.5-3(2.5)MG/3ML NEB HHN SCH ×2 (10:00→21:03)
[2019-05-29 10:55] LABS: PLATELET ESTIMATE SLIGHTLY DECREASED
[2019-05-29] MEDS: FAMOTIDINE 20MG/2ML VIAL IV SCH (11:40)
[2019-05-29] MEDS: METOLAZONE 2.5MG TABLET PO SCH (11:41)
[2019-05-29] MEDS: LEVOFLOXACIN 500MG TABLET PO SCH (11:41)
[2019-05-29] MEDS: GABAPENTIN 100MG CAPSULE PO SCH ×3 (11:43→17:00)
[2019-05-29] MEDS: ENOXAPARIN 40MG/0.4ML SYR SUBCUT SCH (11:45)
[2019-05-29] MEDS: FUROSEMIDE 40MG TABLET PO SCH (11:46)
[2019-05-29] MEDS: CARVEDILOL 6.25 MG TABLET PO SCH ×2 (11:46→21:00)
[2019-05-29] MEDS: ASPIRIN 81MG EC TABLET PO SCH (11:46)
[2019-05-29] MEDS: COLCHICINE 0.6MG TABLET PO SCH (11:51)
[2019-05-29] MEDS ORDERED: POTASSIUM CHLORIDE 20MEQ TABLET SR PO NR (17:15)
[2019-05-29] MEDS: ATORVASTATIN CALCIUM 20MG TABLET PO SCH ×4 (21:00→22:24)
[2019-05-29] MEDS: LACTULOSE 20G/30ML UDC PO SCH (21:09)
[2019-05-30] VITALS (9 sets, daily range): BP systolic 90–117; BP diastolic 56–77
[2019-05-30] MEDS: HYDROCODONE/ACETAMINOPHEN 5/325MG TABLET PO PRN (00:38)
[2019-05-30] MEDS: IPRATROPIUM/ALBUTEROL 0.5-3(2.5)MG/3ML NEB HHN SCH ×4 (03:35→22:42)
[2019-05-30] MEDS: LACTULOSE 20G/30ML UDC PO SCH ×3 (06:00→21:54)
[2019-05-30 06:25] LABS: CHLORIDE 92 mEq/L (98-107)
[2019-05-30 06:26] LABS: HEMATOCRIT. 44.4 % (42.0-52.0); HEMOGLOBIN. 14.8 g/dL (14.0-18.0); MEAN CORPUSCULAR HEMOGLOBIN 28.3 pg (28.0-32.0); MEAN CORPUSCULAR VOLUME 84.8 fL (80.0-94.0); MEAN PLATELET VOLUME 9.4 fl (7.4-10.4); PLATELET 132 x1000/uL (130-400); RED BLOOD CELL COUNT 5.24 mill/uL (4.7-6.1); RED CELL DISTRIBUTION WIDTH 19.5 % (11.6-14.6)
[2019-05-30] MEDS: BLOOD SUGAR DIAGNOSTIC STRIP TEST SCH ×4 (07:25→21:54)
[2019-05-30] MEDS: INSULIN LISPRO 100 UNITS/ML SUBCUT SCH ×4 (08:00→21:00)
[2019-05-30] MEDS: CARVEDILOL 6.25 MG TABLET PO SCH ×2 (08:14→21:00)
[2019-05-30] MEDS: GABAPENTIN 100MG CAPSULE PO SCH ×3 (08:15→17:00)
[2019-05-30] MEDS: FUROSEMIDE 40MG TABLET PO SCH ×2 (08:15→17:59)
[2019-05-30] MEDS: METOLAZONE 2.5MG TABLET PO SCH (08:16)
[2019-05-30] MEDS: COLCHICINE 0.6MG TABLET PO SCH (08:16)
[2019-05-30] MEDS: ACETAMINOPHEN 325MG TABLET PO PRN ×2 (08:16→22:36)
[2019-05-30] MEDS: FAMOTIDINE 20MG/2ML VIAL IV SCH (08:16)
[2019-05-30] MEDS ORDERED: POTASSIUM CHLORIDE 20MEQ TABLET SR PO NR (08:45)
[2019-05-30 09:05] LABS: NUCLEATED RED BLOOD CELLS 1 /100 WBC
[2019-05-30 09:06] LABS: PLATELET ESTIMATE NORMAL
[2019-05-31] VITALS: BP 93/72
[2019-05-31] MEDS: IPRATROPIUM/ALBUTEROL 0.5-3(2.5)MG/3ML NEB HHN SCH ×2 (01:34→08:57)
[2019-05-31 02:00] VITALS: BP 116/69
[2019-05-31 04:00] VITALS: BP 102/73
[2019-05-31 06:00] VITALS: BP 102/73
[2019-05-31] MEDS: LACTULOSE 20G/30ML UDC PO SCH (06:00)
[2019-05-31 06:12] LABS: HEMATOCRIT. 43.8 % (42.0-52.0); HEMOGLOBIN. 14.2 g/dL (14.0-18.0); MEAN CORPUSCULAR HEMOGLOBIN 27.6 pg (28.0-32.0); MEAN CORPUSCULAR VOLUME 85.1 fL (80.0-94.0); MEAN PLATELET VOLUME 9.2 fl (7.4-10.4); PLATELET 125 x1000/uL (130-400); RED BLOOD CELL COUNT 5.14 mill/uL (4.7-6.1); RED CELL DISTRIBUTION WIDTH 19.9 % (11.6-14.6)
[2019-05-31 06:20] LABS: CHLORIDE 91 mEq/L (98-107)
[2019-05-31] MEDS: BLOOD SUGAR DIAGNOSTIC STRIP TEST SCH (06:39)
[2019-05-31 08:00] VITALS: BP 104/68
[2019-05-31] MEDS: FUROSEMIDE 40MG TABLET PO SCH (08:32)
[2019-05-31] MEDS: FAMOTIDINE 20MG/2ML VIAL IV SCH (08:32)
[2019-05-31] MEDS: COLCHICINE 0.6MG TABLET PO SCH (08:32)
[2019-05-31] MEDS: METOLAZONE 2.5MG TABLET PO SCH (08:32)
[2019-05-31] MEDS: INSULIN LISPRO 100 UNITS/ML SUBCUT SCH (08:33)
[2019-05-31] MEDS: GABAPENTIN 100MG CAPSULE PO SCH (08:34)
[2019-05-31] MEDS: CARVEDILOL 6.25 MG TABLET PO SCH (08:34)
[2019-05-31] MEDS ORDERED: POTASSIUM CHLORIDE 20MEQ TABLET SR PO SCH (09:00)
[2019-05-31] MEDS: ASPIRIN 81MG EC TABLET PO SCH (09:00)
[2019-05-31] MEDS: ENOXAPARIN 40MG/0.4ML SYR SUBCUT SCH (09:00)
[2019-05-31 10:00] VITALS: BP 107/65
[2019-05-31 17:04] LABS: PLATELET ESTIMATE DECREASED
== END 2019-05-31 10:35 | disposition left against medical advice (07) | DRG 133 ==
LOC: ER 08:04 → 5EST 09:41 → ENRESERV 10:14 → 5EST 05-25 11:00
PROVIDERS: ADMIT Internal Medicine; ATTEND Internal Medicine
PROC: 5A09357 Assistance with Respiratory Ventilation, Less than 24 Consecutive Hours, Continuous Positive Airway Pressure (ICD-10-PCS; principal; 2019-05-22)
PROC: 5A09357 Assistance with Respiratory Ventilation, Less than 24 Consecutive Hours, Continuous Positive Airway Pressure (ICD-10-PCS; 2019-05-23)
PROC: 5A09357 Assistance with Respiratory Ventilation, Less than 24 Consecutive Hours, Continuous Positive Airway Pressure (ICD-10-PCS; 2019-05-25)
PROC: 02HV33Z Insertion of Infusion Device into Superior Vena Cava, Percutaneous Approach (ICD-10-PCS; 2019-05-25)
PROC: B548ZZA Ultrasonography of Superior Vena Cava, Guidance (ICD-10-PCS; 2019-05-25)
PROC: 5A1D70Z Performance of Urinary Filtration, Intermittent, Less than 6 Hours Per Day (ICD-10-PCS; 2019-05-25)
PROC: 5A1D70Z Performance of Urinary Filtration, Intermittent, Less than 6 Hours Per Day (ICD-10-PCS; 2019-05-26)
PROC: 5A09357 Assistance with Respiratory Ventilation, Less than 24 Consecutive Hours, Continuous Positive Airway Pressure (ICD-10-PCS; 2019-05-27)
PROC: 5A09357 Assistance with Respiratory Ventilation, Less than 24 Consecutive Hours, Continuous Positive Airway Pressure (ICD-10-PCS; 2019-05-29)
PROC: 5A1D70Z Performance of Urinary Filtration, Intermittent, Less than 6 Hours Per Day (ICD-10-PCS; 2019-05-29)
DX: J96.01 Acute respiratory failure with hypoxia (principal); N17.0 Acute kidney failure with tubular necrosis; E43 Unspecified severe protein-calorie malnutrition; I50.23 Acute on chronic systolic (congestive) heart failure; J18.9 Pneumonia, unspecified organism; I95.9 Hypotension, unspecified; E87.2 Acidosis; E87.1 Hypo-osmolality and hyponatremia; E11.22 Type 2 diabetes mellitus with diabetic chronic kidney disease; I13.0 Hypertensive heart and chronic kidney disease with heart failure and stage 1 through stage 4 chronic kidney disease, or unspecified chronic kidney disease; I42.9 Cardiomyopathy, unspecified; J44.1 Chronic obstructive pulmonary disease with (acute) exacerbation; N18.9 Chronic kidney disease, unspecified; I34.0 Nonrheumatic mitral (valve) insufficiency; E78.5 Hyperlipidemia, unspecified; R74.0 Nonspecific elevation of levels of transaminase and lactic acid dehydrogenase [LDH]; F14.10 Cocaine abuse, uncomplicated; M10.9 Gout, unspecified; E87.5 Hyperkalemia; F17.200 Nicotine dependence, unspecified, uncomplicated; Z53.29 Procedure and treatment not carried out because of patient's decision for other reasons; R04.2 Hemoptysis; J44.0 Chronic obstructive pulmonary disease with (acute) lower respiratory infection; Z91.19 Patient's noncompliance with other medical treatment and regimen; Z68.35 Body mass index [BMI] 35.0-35.9, adult; Z71.6 Tobacco abuse counseling; Z71.51 Drug abuse counseling and surveillance of drug abuser; Z87.01 Personal history of pneumonia (recurrent)
CPT/HCPCS: 36415; 36600; 71045; 71250; 76770; 76937; 80048; 80053; 80305; 81003; 82375; 82550; 82553; 82805; 82962; 83036; 83735; 83880; 84100; 84132; 84484; 85025; 87070; 87804; 93005; 93970; 94640; 94660; 96365; 96366; 96367; 96375; 99291; C1752; C9113; J0610; J1250; J1650; J1815; J1940; J1956; J2060; J2405; J2543; J2920; J2930; J3430; J3475; J3490; J7060; J7626

== ENCOUNTER 2019-06-04 06:26 | Inpatient (IN) | payer MEDICAID ==
[~2019-06-04] VITALS: Ht 182.9 cm; Wt 108.9 kg
[2019-06-04] MEDS ORDERED: DEXTROSE 50% WATER 50ML SYRINGE IV ONE ×4 (07:41→09:00)
[2019-06-04] MEDS ORDERED: SODIUM CHLORIDE 0.9% 500 ML IV ONE (07:46)
[2019-06-04 08:42] LABS: HEMATOCRIT. 48.1 % (42.0-52.0); HEMOGLOBIN. 15.6 g/dL (14.0-18.0); MEAN CORPUSCULAR HEMOGLOBIN 27.9 pg (28.0-32.0); MEAN CORPUSCULAR VOLUME 85.8 fL (80.0-94.0); MEAN PLATELET VOLUME 8.2 fl (7.4-10.4); PLATELET 169 x1000/uL (130-400); RED BLOOD CELL COUNT 5.61 mill/uL (4.7-6.1); RED CELL DISTRIBUTION WIDTH 19.6 % (11.6-14.6)
[2019-06-04 08:47] LABS: CHLORIDE 86 mEq/L (98-107)
[2019-06-04 08:52] LABS: ETHANOL BLOOD < 10 mg/dL
[2019-06-04 09:23] LABS: PLATELET ESTIMATE NORMAL
[2019-06-04] MEDS ORDERED: AZITHROMYCIN 500 MG in DEXT 5% WATER 250 ML IV SCH (09:30)
[2019-06-04] MEDS ORDERED: CEFTRIAXONE 1 G PREMIX 50 ML IV ONE (09:30)
[2019-06-04 09:43] LABS: BG BASE EXCESS -9.4 mmol/L (-2.0-2.0); BG CARBOXYHEMOGLOBIN 3.2 % (0.5-1.5); BG DEOXYHEMOGLOBIN 1.7 % (0.0-5.0); BG HCO3 ACT 13.2 mmol/L (22.0-26.0); BG METHEMOGLOBIN 0.1 % (0.0-1.5); BG OXYGEN SATURATION 98.2 % (92.0-98.5); BG PCO2 21.9 mmHg (35.0-45.0); BG PH 7.397 (7.350-7.450); BG SAMPLE SITE RIGHT BRACHIAL; BG TOTAL HEMOGLOBIN 14.4 g/dL (12.0-18.0); BG VENT MODE NASAL CANNULA
[2019-06-04 09:49] LABS: CLARITY URINE CLOUDY (CLEAR); COLOR URINE DK YELLOW (YELLOW); KETONES URINE NEGATIVE (NEGATIVE); LEUKOCYTE ESTERASE URINE NEGATIVE (NEGATIVE); NITRITE URINE NEGATIVE (NEGATIVE); OCCULT BLOOD URINE NEGATIVE (NEGATIVE); PROTEIN URINE TRACE (NEGATIVE); SPECIFIC GRAVITY URINE 1.016 (1.005-1.030)
[2019-06-04 09:59] LABS: *AMPHETAMINES SCREEN URINE NEGATIVE (NEGATIVE); *BARBITURATES SCREEN URINE NEGATIVE (NEGATIVE); *BENZODIAZEPINES SCREEN URINE NEGATIVE (NEGATIVE); *COCAINE SCREEN URINE PRESUMTIVE POSITIVE (NEGATIVE); CANNABINOID URINE SCREEN NEGATIVE (NEGATIVE); METHADONE URINE SCREEN NEGATIVE (NEGATIVE); OPIATES URINE SCREEN PRESUMTIVE POSITIVE (NEGATIVE); PHENCYCLIDINE URINE SCREEN NEGATIVE (NEGATIVE)
[2019-06-04] MEDS ORDERED: DOCUSATE SODIUM 100MG CAPSULE PO PRN (10:45)
[2019-06-04] MEDS ORDERED: MAGNESIUM/ALUMINUM HYDROXIDE/SIMETHICONE 30ML UDC PO PRN (10:45)
[2019-06-04] MEDS ORDERED: ENOXAPARIN 40MG/0.4ML SYR SUBCUT SCH (10:45)
[2019-06-04] MEDS ORDERED: ONDANSETRON HCL 4MG/2ML INJ IV PRN (10:45)
[2019-06-04] MEDS ORDERED: NA PHOS,M-B/NA PHOS,DI-BA ENEMA 118ML PR PRN (10:45)
[2019-06-04] MEDS ORDERED: ACETAMINOPHEN 325MG TABLET PO PRN (10:45)
[2019-06-04] MEDS ORDERED: GUAIFENESIN 200MG/10ML SUGAR FREE UDC PO PRN (10:45)
[2019-06-04] MEDS ORDERED: HYDROCODONE/ACETAMINOPHEN 5/325MG TABLET PO PRN (10:45)
[2019-06-04] MEDS ORDERED: DIPHENHYDRAMINE 50MG/ML VIAL IV PRN (10:45)
[2019-06-04] MEDS ORDERED: CLONIDINE 0.1MG TABLET PO PRN (10:45)
[2019-06-04] MEDS: ENOXAPARIN 30MG/0.3ML SYR SUBCUT SCH ×2 (11:09→20:46)
[2019-06-04] MEDS: IPRATROPIUM/ALBUTEROL 0.5-3(2.5)MG/3ML NEB NEB PRN ×2 (11:26→14:26)
[2019-06-04] MEDS ORDERED: DEXTROSE 50% WATER 50ML SYRINGE IV PRN (11:45)
[2019-06-04] MEDS: LORAZEPAM 2MG/ML CPJ IV PRN ×2 (12:30→23:10)
[2019-06-04] MEDS: INSULIN LISPRO 100 UNITS/ML SUBCUT SCH ×3 (13:07→20:46)
[2019-06-04] MEDS: BLOOD SUGAR DIAGNOSTIC STRIP TEST SCH ×3 (13:25→20:45)
[2019-06-04 13:44] VITALS: BP 108/63
[2019-06-04 20:00] VITALS: BP 86/56
[2019-06-05] VITALS: BP 90/63
[2019-06-05 04:00] VITALS: BP 89/58
[2019-06-05] MEDS: INSULIN LISPRO 100 UNITS/ML SUBCUT SCH ×4 (05:49→21:00)
[2019-06-05] MEDS: BLOOD SUGAR DIAGNOSTIC STRIP TEST SCH ×4 (05:49→21:36)
[2019-06-05 08:38] VITALS: BP 108/70
[2019-06-05] MEDS: FUROSEMIDE 40MG/4ML VIAL IV SCH (08:48)
[2019-06-05] MEDS: ASPIRIN 81MG EC TABLET PO SCH (08:48)
[2019-06-05] MEDS: ENOXAPARIN 30MG/0.3ML SYR SUBCUT SCH ×2 (08:49→21:42)
[2019-06-05 09:08] LABS: HEMATOCRIT. 45.8 % (42.0-52.0); MEAN CORPUSCULAR HEMOGLOBIN 27.9 pg (28.0-32.0); MEAN CORPUSCULAR VOLUME 85.6 fL (80.0-94.0); MEAN PLATELET VOLUME 8.5 fl (7.4-10.4); PLATELET 198 x1000/uL (130-400); RED BLOOD CELL COUNT 5.35 mill/uL (4.7-6.1); RED CELL DISTRIBUTION WIDTH 20.4 % (11.6-14.6)
[2019-06-05 09:16] LABS: CHLORIDE 87 mEq/L (98-107)
[2019-06-05 09:24] LABS: HDL CHOLESTEROL 21 mg/dL (40-59); LDL CHOLESTEROL 79 mg/dL (5-100)
[2019-06-05 09:27] LABS: T4 FREE 0.85 ng/dL (0.76-1.46)
[2019-06-05 12:15] VITALS: BP 97/75
[2019-06-05 16:12] VITALS: BP 96/79
[2019-06-05 16:54] LABS: PLATELET ESTIMATE NORMAL
[2019-06-05 20:00] VITALS: BP 93/57
[2019-06-05] MEDS: THIAMINE HCL 100MG TABLET PO SCH (21:41)
[2019-06-06] VITALS: BP 93/53
[2019-06-06 04:00] VITALS: BP 95/60
[2019-06-06] MEDS: BLOOD SUGAR DIAGNOSTIC STRIP TEST SCH ×4 (05:48→21:24)
[2019-06-06] MEDS: INSULIN LISPRO 100 UNITS/ML SUBCUT SCH ×4 (06:34→21:00)
[2019-06-06 08:00] VITALS: BP 141/119
[2019-06-06] MEDS: LEVOTHYROXINE SODIUM 25MCG TABLET PO SCH (08:13)
[2019-06-06] MEDS: ASPIRIN 81MG EC TABLET PO SCH (08:14)
[2019-06-06] MEDS: THIAMINE HCL 100MG TABLET PO SCH (08:14)
[2019-06-06] MEDS: FUROSEMIDE 40MG/4ML VIAL IV SCH ×2 (08:14→09:00)
[2019-06-06] MEDS: ENOXAPARIN 30MG/0.3ML SYR SUBCUT SCH ×2 (08:14→21:28)
[2019-06-06] MEDS: IPRATROPIUM/ALBUTEROL 0.5-3(2.5)MG/3ML NEB NEB PRN ×2 (09:41→20:18)
[2019-06-06] MEDS: FUROSEMIDE 40MG TABLET PO SCH (11:22)
[2019-06-06 12:00] VITALS: BP 78/50
[2019-06-06 16:00] VITALS: BP 111/85
[2019-06-06 20:00] VITALS: BP 91/55
[2019-06-07] VITALS: BP 104/71
[2019-06-07 04:00] VITALS: BP 90/61
[2019-06-07] MEDS: BLOOD SUGAR DIAGNOSTIC STRIP TEST SCH ×4 (05:52→21:09)
[2019-06-07] MEDS: LEVOTHYROXINE SODIUM 25MCG TABLET PO SCH (05:55)
[2019-06-07 06:16] LABS: BASOPHILS % 1.2 % (0.0-2.0); EOSINOPHILS % 5.6 % (0.0-5.0); HEMATOCRIT. 43.3 % (42.0-52.0); HEMOGLOBIN. 14.3 g/dL (14.0-18.0); LYMPHOCYTES % 8.6 % (20.0-50.0); MEAN CORPUSCULAR HEMOGLOBIN 28.2 pg (28.0-32.0); MEAN CORPUSCULAR VOLUME 85.5 fL (80.0-94.0); MEAN PLATELET VOLUME 8.5 fl (7.4-10.4); MONOCYTES % 9.8 % (2.0-8.0); NEUTROPHILS % 74.8 % (40.0-76.0); PLATELET 170 x1000/uL (130-400); RED BLOOD CELL COUNT 5.06 mill/uL (4.7-6.1); RED CELL DISTRIBUTION WIDTH 20.2 % (11.6-14.6)
[2019-06-07 06:22] LABS: CHLORIDE 90 mEq/L (98-107)
[2019-06-07] MEDS: INSULIN LISPRO 100 UNITS/ML SUBCUT SCH ×4 (06:24→21:00)
[2019-06-07 08:00] VITALS: BP 85/64
[2019-06-07] MEDS: ASPIRIN 81MG EC TABLET PO SCH (08:38)
[2019-06-07] MEDS: FUROSEMIDE 40MG TABLET PO SCH (08:38)
[2019-06-07] MEDS: THIAMINE HCL 100MG TABLET PO SCH (08:38)
[2019-06-07] MEDS: ENOXAPARIN 30MG/0.3ML SYR SUBCUT SCH ×3 (08:39→21:00)
[2019-06-07 12:00] VITALS: BP 86/63
[2019-06-07] MEDS: IPRATROPIUM/ALBUTEROL 0.5-3(2.5)MG/3ML NEB NEB PRN (16:30)
[2019-06-07 20:00] VITALS: BP 79/55
[2019-06-07 20:15] VITALS: BP 85/57
[2019-06-08] VITALS: BP 83/61
[2019-06-08 04:00] VITALS: BP 90/61
[2019-06-08 06:11] LABS: BASOPHILS % 1.7 % (0.0-2.0); EOSINOPHILS % 5.4 % (0.0-5.0); HEMATOCRIT. 44.1 % (42.0-52.0); HEMOGLOBIN. 14.6 g/dL (14.0-18.0); LYMPHOCYTES % 10.6 % (20.0-50.0); MEAN CORPUSCULAR HEMOGLOBIN 28.2 pg (28.0-32.0); MEAN CORPUSCULAR VOLUME 85.6 fL (80.0-94.0); MEAN PLATELET VOLUME 8.5 fl (7.4-10.4); MONOCYTES % 8.1 % (2.0-8.0); NEUTROPHILS % 74.2 % (40.0-76.0); PLATELET 150 x1000/uL (130-400); RED BLOOD CELL COUNT 5.16 mill/uL (4.7-6.1)
[2019-06-08 06:45] LABS: CHLORIDE 90 mEq/L (98-107)
[2019-06-08] MEDS: LEVOTHYROXINE SODIUM 25MCG TABLET PO SCH ×2 (06:45→06:47)
[2019-06-08] MEDS: BLOOD SUGAR DIAGNOSTIC STRIP TEST SCH ×2 (06:47→12:10)
[2019-06-08] MEDS: INSULIN LISPRO 100 UNITS/ML SUBCUT SCH ×2 (06:48→12:15)
[2019-06-08 08:00] VITALS: BP 84/59
[2019-06-08] MEDS ORDERED: POTASSIUM CHLORIDE 20MEQ TABLET SR PO SCH (09:00)
[2019-06-08] MEDS: ENOXAPARIN 30MG/0.3ML SYR SUBCUT SCH ×2 (09:00→09:42)
[2019-06-08] MEDS: ASPIRIN 81MG EC TABLET PO SCH ×2 (09:00→09:42)
[2019-06-08] MEDS: THIAMINE HCL 100MG TABLET PO SCH ×2 (09:00→09:42)
[2019-06-08] MEDS: IPRATROPIUM/ALBUTEROL 0.5-3(2.5)MG/3ML NEB NEB PRN (10:36)
[2019-06-08 12:00] VITALS: BP 102/75
== END 2019-06-08 15:10 | disposition left against medical advice (07) | DRG 469 ==
LOC: ER 06:26 → 5WST 08:59 → EDBEDREQ 10:34 → ENRESERV 11:57
PROVIDERS: ADMIT Internal Medicine; ATTEND Internal Medicine
DX: N17.9 Acute kidney failure, unspecified (principal); G92 Toxic encephalopathy; E11.22 Type 2 diabetes mellitus with diabetic chronic kidney disease; E11.649 Type 2 diabetes mellitus with hypoglycemia without coma; E46 Unspecified protein-calorie malnutrition; K56.7 Ileus, unspecified; E87.1 Hypo-osmolality and hyponatremia; D64.9 Anemia, unspecified; E03.9 Hypothyroidism, unspecified; J44.9 Chronic obstructive pulmonary disease, unspecified; F14.10 Cocaine abuse, uncomplicated; I13.0 Hypertensive heart and chronic kidney disease with heart failure and stage 1 through stage 4 chronic kidney disease, or unspecified chronic kidney disease; N18.9 Chronic kidney disease, unspecified; E78.5 Hyperlipidemia, unspecified; I87.2 Venous insufficiency (chronic) (peripheral); Z53.29 Procedure and treatment not carried out because of patient's decision for other reasons; F19.10 Other psychoactive substance abuse, uncomplicated; Z79.899 Other long term (current) drug therapy; Z79.82 Long term (current) use of aspirin; Z79.84 Long term (current) use of oral hypoglycemic drugs; Z68.32 Body mass index [BMI] 32.0-32.9, adult; I50.20 Unspecified systolic (congestive) heart failure
CPT/HCPCS: 36415; 36600; 71045; 80048; 80053; 80061; 80305; 80320; 81003; 82140; 82375; 82805; 82962; 83036; 83735; 83880; 83935; 84100; 84439; 84443; 84484; 85025; 93005; 93970; 95816; 99285; J0456; J0696; J1200; J1650; J1815; J1940; J2060; J7030; J7060; G0480

== ENCOUNTER 2019-06-13 14:21 | Emergency (ER) | payer MEDICAID ==
[~2019-06-13] VITALS: Ht 180.3 cm; Wt 146.0 kg
[2019-06-13] MEDS ORDERED: FUROSEMIDE 40MG/4ML VIAL IV ONE (15:00)
[2019-06-13] MEDS: ASPIRIN 81MG TABLET PO ONE ×2 (15:15→15:21)
[2019-06-13 16:17] LABS: BASOPHILS % 1.1 % (0.0-2.0); EOSINOPHILS % 5.3 % (0.0-5.0); HEMATOCRIT. 48.2 % (42.0-52.0); HEMOGLOBIN. 16.2 g/dL (14.0-18.0); LYMPHOCYTES % 12.7 % (20.0-50.0); MEAN CORPUSCULAR HEMOGLOBIN 28.5 pg (28.0-32.0); MEAN CORPUSCULAR VOLUME 84.8 fL (80.0-94.0); MEAN PLATELET VOLUME 9.1 fl (7.4-10.4); MONOCYTES % 5.8 % (2.0-8.0); NEUTROPHILS % 75.1 % (40.0-76.0); PLATELET 234 x1000/uL (130-400); RED BLOOD CELL COUNT 5.68 mill/uL (4.7-6.1); RED CELL DISTRIBUTION WIDTH 21.4 % (11.6-14.6)
[2019-06-13 16:50] LABS: *AMPHETAMINES SCREEN URINE NEGATIVE (NEGATIVE); *BARBITURATES SCREEN URINE NEGATIVE (NEGATIVE); *BENZODIAZEPINES SCREEN URINE NEGATIVE (NEGATIVE); *COCAINE SCREEN URINE PRESUMTIVE POSITIVE (NEGATIVE); METHADONE URINE SCREEN NEGATIVE (NEGATIVE); OPIATES URINE SCREEN NEGATIVE (NEGATIVE)
[2019-06-13 16:51] LABS: CANNABINOID URINE SCREEN NEGATIVE (NEGATIVE); PHENCYCLIDINE URINE SCREEN NEGATIVE (NEGATIVE)
[2019-06-13 18:42] VITALS: BP 141/118
== END 2019-06-13 18:46 | disposition left against medical advice (07) ==
LOC: ER 14:21 → CANBEDREQ 19:58
DX: R07.9 Chest pain, unspecified (principal); I11.0 Hypertensive heart disease with heart failure; I50.9 Heart failure, unspecified; J44.9 Chronic obstructive pulmonary disease, unspecified; E11.9 Type 2 diabetes mellitus without complications; Z98.890 Other specified postprocedural states; Z93.0 Tracheostomy status; Z79.899 Other long term (current) drug therapy
CPT/HCPCS: 36415; 71045; 80305; 85025; 87040; 93005; 96374; 99285; J1940; Z7610

== ENCOUNTER 2019-06-17 11:18 | Emergency (ER) | payer MEDICAID ==
[~2019-06-17] VITALS: Ht 172.7 cm; Wt 104.0 kg
[2019-06-17] MEDS ORDERED: ATROPINE SULFATE 1MG/10ML SYR ONE (11:41)
[2019-06-17] MEDS ORDERED: ETOMIDATE 2MG/ML 10ML VIAL IV ONE ×2 (11:41→13:00)
[2019-06-17] MEDS ORDERED: SODIUM BICARBONATE 8.4% MEQ/ML 50ML VIAL IV ONE (11:41)
[2019-06-17] MEDS ORDERED: DEXTROSE 50% WATER 50ML VIAL IV ONE (11:41)
[2019-06-17] MEDS ORDERED: SUCCINYLCHOLINE CHLORIDE 200MG/10ML IV ONE ×2 (11:41→13:00)
[2019-06-17] MEDS ORDERED: CALCIUM CHLORIDE 1GM/10ML SYR IV ONE (11:41)
[2019-06-17] MEDS ORDERED: EPINEPHRINE 0.1MG/ML (1:10,000) 10ML SYR ONE ×3 (11:41→12:07)
[2019-06-17 11:51] LABS: BG CARBOXYHEMOGLOBIN 1.5 % (0.5-1.5); BG DEOXYHEMOGLOBIN 63.4 % (0.0-5.0); BG HCO3 ACT 30.2 mmol/L (22.0-26.0); BG METHEMOGLOBIN 0.2 % (0.0-1.5); BG OXYGEN SATURATION 35.5 % (92.0-98.5); BG OXYHEMOGLOBIN 34.9 % (94.0-97.0); BG PH 7.093 (7.350-7.450); BG PO2 < 30.3 mmHg (75.0-100.0); BG SAMPLE SITE RIGHT RADIAL; BG TOTAL HEMOGLOBIN 15.5 g/dL (12.0-18.0); BG VENT MODE ROOM AIR
[2019-06-17] MEDS ORDERED: DEXTROSE 50% WATER 50ML SYRINGE IV ONE (11:52)
[2019-06-17] MEDS ORDERED: SODIUM BICARBONATE 8.4% 1 MEQ/ML 50ML SYR IV ONE (12:02)
[2019-06-17] MEDS ORDERED: NOREPINEPHRINE 4MG/250ML PMX 250 ML IV ONE (12:10)
[2019-06-17] MEDS ORDERED: SODIUM CHLORIDE 0.9% 1,000 ML IV ONE (12:16)
[2019-06-17] MEDS ORDERED: NOREPINEPHRINE 4MG/250ML PMX 250 ML IV STA (12:16)
[2019-06-17 12:28] LABS: CHLORIDE 95 mEq/L (98-107); HEMATOCRIT. 46.4 % (42.0-52.0); MEAN CORPUSCULAR HEMOGLOBIN 28.2 pg (28.0-32.0); MEAN CORPUSCULAR VOLUME 87.4 fL (80.0-94.0); MEAN PLATELET VOLUME 8.1 fl (7.4-10.4); PLATELET 124 x1000/uL (130-400); RED BLOOD CELL COUNT 5.31 mill/uL (4.7-6.1); RED CELL DISTRIBUTION WIDTH 20.4 % (11.6-14.6)
[2019-06-17] MEDS ORDERED: PIPERACILLIN/TAZ 3.375G PREMIX 50 ML IV ONE (12:30)
[2019-06-17] MEDS ORDERED: VANCOMYCIN 1 G PREMIX 200 ML IV ONE (12:30)
[2019-06-17 12:32] LABS: ETHANOL BLOOD < 10 mg/dL; INR 1.8; PROTHROMBIN TIME 19.4 sec (9.6-11.0)
[2019-06-17 12:49] LABS: BG BASE EXCESS -6.1 mmol/L (-2.0-2.0); BG CARBOXYHEMOGLOBIN 1.6 % (0.5-1.5); BG DEOXYHEMOGLOBIN 5.4 % (0.0-5.0); BG FRACTION INSPIRED OXYGEN 100; BG HCO3 ACT 24.6 mmol/L (22.0-26.0); BG METHEMOGLOBIN 0.3 % (0.0-1.5); BG OXYGEN SATURATION 94.5 % (92.0-98.5); BG OXYHEMOGLOBIN 92.7 % (94.0-97.0); BG PCO2 73.6 mmHg (35.0-45.0); BG PH 7.142 (7.350-7.450); BG PO2 98.8 mmHg (75.0-100.0); BG SAMPLE SITE RIGHT RADIAL; BG TIDAL VOLUME(mL) 500 mL; BG VENT MODE VENT - A/C; BG VENT RATE 16 set
[2019-06-17] MEDS ORDERED: MIDAZOLAM HCL 50 MG in DEXTROSE 5% WATER 40 ML IV ONE (13:00)
[2019-06-17] MEDS ORDERED: FENTANYL CITRATE/PF 50MCG/ML 2ML VIAL IV ONE (13:00)
[2019-06-17] MEDS ORDERED: FENTANYL CITRATE/PF 500 MCG in SODIUM CHLORIDE 0.9% 40 ML IV PRN (13:00)
[2019-06-17 13:16] LABS: PLATELET ESTIMATE SLIGHTLY DECREASED
[2019-06-17] MEDS ORDERED: MIDAZOLAM HCL 50 MG in DEXTROSE 5% WATER 40 ML IV NR (13:30)
[2019-06-17 14:40] LABS: CLARITY URINE CLEAR (CLEAR); COLOR URINE YELLOW (YELLOW); KETONES URINE TRACE (NEGATIVE); LEUKOCYTE ESTERASE URINE NEGATIVE (NEGATIVE); NITRITE URINE NEGATIVE (NEGATIVE); OCCULT BLOOD URINE 2+ (NEGATIVE); PROTEIN URINE 1+ (NEGATIVE)
[2019-06-17 14:50] LABS: *AMPHETAMINES SCREEN URINE NEGATIVE (NEGATIVE); CANNABINOID URINE SCREEN NEGATIVE (NEGATIVE); PHENCYCLIDINE URINE SCREEN NEGATIVE (NEGATIVE)
[2019-06-17 14:51] LABS: *BARBITURATES SCREEN URINE NEGATIVE (NEGATIVE); *BENZODIAZEPINES SCREEN URINE NEGATIVE (NEGATIVE); *COCAINE SCREEN URINE PRESUMTIVE POSITIVE (NEGATIVE); METHADONE URINE SCREEN NEGATIVE (NEGATIVE); OPIATES URINE SCREEN NEGATIVE (NEGATIVE)
[2019-06-17 14:54] LABS: BG BASE EXCESS -0.8 mmol/L (-2.0-2.0); BG CARBOXYHEMOGLOBIN 1.8 % (0.5-1.5); BG DEOXYHEMOGLOBIN 6.4 % (0.0-5.0); BG HCO3 ACT 25.6 mmol/L (22.0-26.0); BG METHEMOGLOBIN 0.2 % (0.0-1.5); BG OXYGEN SATURATION 93.5 % (92.0-98.5); BG OXYHEMOGLOBIN 91.6 % (94.0-97.0); BG PCO2 48.8 mmHg (35.0-45.0); BG PH 7.338 (7.350-7.450); BG PO2 77.3 mmHg (75.0-100.0); BG SAMPLE SITE RIGHT RADIAL; BG TIDAL VOLUME(mL) 500 mL; BG TOTAL HEMOGLOBIN 15.7 g/dL (12.0-18.0); BG VENT MODE VENT - A/C; BG VENT RATE 18 set
[2019-06-17] MEDS ORDERED: FUROSEMIDE 40MG/4ML VIAL IVP SCH (16:15)
[2019-06-17] MEDS ORDERED: ACETAMINOPHEN 325MG TABLET PO PRN (16:15)
[2019-06-17] MEDS ORDERED: ONDANSETRON HCL 4MG/2ML INJ IV PRN (16:15)
[2019-06-17] MEDS ORDERED: THIAMINE HCL 100MG TABLET PO SCH (17:00)
[2019-06-17] MEDS ORDERED: NOREPINEPHRINE 4MG/250ML PMX 250 ML IV PRN (18:45)
[2019-06-17] MEDS: PIPERACILLIN/TAZ 3.375G PREMIX 50 ML IV SCH (20:34)
[2019-06-17] MEDS ORDERED: PHENYLEPHRINE 10MG in DEXT 5% WATER 250ML IV PRN (20:45)
[2019-06-17] MEDS ORDERED: ASCORBIC ACID 500 MG TABLET NG SCH (21:00)
[2019-06-17] MEDS ORDERED: PHENYLEPHRINE 20 MG in DEXT 5% WATER 498 ML IV PRN (23:15)
[2019-06-18] MEDS: EPINEPHRINE 1 MG in SODIUM CHLORIDE 0.9% 250 ML IV PRN ×2 (00:35→10:50)
[2019-06-18] MEDS ORDERED: SODIUM CHLORIDE 0.9% 500 ML IV NR (02:45)
[2019-06-18 05:04] LABS: HEMATOCRIT. 47.6 % (42.0-52.0); HEMOGLOBIN. 15.5 g/dL (14.0-18.0); MEAN CORPUSCULAR HEMOGLOBIN 28.2 pg (28.0-32.0); MEAN CORPUSCULAR VOLUME 86.5 fL (80.0-94.0); MEAN PLATELET VOLUME 8.2 fl (7.4-10.4); PLATELET 265 x1000/uL (130-400); RED CELL DISTRIBUTION WIDTH 20.1 % (11.6-14.6)
[2019-06-18 05:11] LABS: CHLORIDE 93 mEq/L (98-107)
[2019-06-18 05:37] LABS: PLATELET ESTIMATE NORMAL
[2019-06-18] MEDS ORDERED: NOREPINEPHRINE 4 MG in DEXT 5% WATER 246 ML IV ONE (07:15)
[2019-06-18] MEDS ORDERED: PANTOPRAZOLE SODIUM 40 MG/VIAL IV SCH (09:00)
[2019-06-18] MEDS ORDERED: ZINC SULFATE 220 MG ( 50 ) CAPSULE NG SCH (09:00)
[2019-06-18] MEDS ORDERED: THIAMINE HCL 100MG TABLET NG SCH (09:00)
[2019-06-18] MEDS ORDERED: FUROSEMIDE 40MG/4ML VIAL IVP SCH (09:00)
[2019-06-18] MEDS: MIDAZOLAM HCL 50 MG in DEXTROSE 5% WATER 40 ML IV NR (09:07)
[2019-06-18] MEDS ORDERED: PIPERACILLIN/TAZOBACTAM 3.375 G in DEXT 5% WATER 100 ML IV SCH (09:30)
[2019-06-18] MEDS: PHENYLEPHRINE 20 MG in DEXTROSE 5% WATER 250 ML IV PRN ×2 (09:34→21:01)
[2019-06-18] MEDS: PIPERACILLIN/TAZ 3.375G PREMIX 50 ML IV SCH (10:26)
[2019-06-18] MEDS ORDERED: DOBUTAMINE 500MG PREMIX 250 ML IV PRN (11:45)
[2019-06-18 12:16] LABS: BG CARBOXYHEMOGLOBIN 0.8 % (0.5-1.5); BG DEOXYHEMOGLOBIN 6.1 % (0.0-5.0); BG HCO3 ACT 23.5 mmol/L (22.0-26.0); BG METHEMOGLOBIN 0.4 % (0.0-1.5); BG OXYGEN SATURATION 93.8 % (92.0-98.5); BG OXYHEMOGLOBIN 92.7 % (94.0-97.0); BG PCO2 35.1 mmHg (35.0-45.0); BG PH 7.444 (7.350-7.450); BG PO2 69.9 mmHg (75.0-100.0); BG SAMPLE SITE RIGHT RADIAL; BG TIDAL VOLUME(mL) 500 mL; BG TOTAL HEMOGLOBIN 15.8 g/dL (12.0-18.0); BG VENT MODE VENT - A/C; BG VENT RATE 18 set
[2019-06-18] MEDS: DOBUTAMINE 500MG PREMIX 250 ML IV PRN (13:25)
[2019-06-18] MEDS ORDERED: FENTANYL CITRATE/PF 500 MCG in SODIUM CHLORIDE 0.9% 40 ML IV PRN (19:45)
[2019-06-19] MEDS: DOBUTAMINE 500MG PREMIX 250 ML IV PRN ×2 (02:26→06:47)
[2019-06-19] MEDS: EPINEPHRINE 1 MG in SODIUM CHLORIDE 0.9% 250 ML IV PRN ×3 (02:36→06:47)
[2019-06-19] MEDS: PHENYLEPHRINE 20 MG in DEXTROSE 5% WATER 250 ML IV PRN (02:37)
[2019-06-19] MEDS: MIDAZOLAM HCL 50 MG in DEXTROSE 5% WATER 40 ML IV NR (02:38)
[2019-06-19] MEDS: PHENYLEPHRINE 40 MG in DEXTROSE 5% WATER 250 ML IV PRN ×2 (04:47→08:43)
[2019-06-19 05:04] LABS: HEMATOCRIT. 40.4 % (42.0-52.0); HEMOGLOBIN. 13.4 g/dL (14.0-18.0); MEAN CORPUSCULAR HEMOGLOBIN 28.2 pg (28.0-32.0); MEAN PLATELET VOLUME 7.9 fl (7.4-10.4); PLATELET 113 x1000/uL (130-400); RED BLOOD CELL COUNT 4.75 mill/uL (4.7-6.1)
[2019-06-19] MEDS ORDERED: NOREPINEPHRINE 4 MG in DEXTROSE 5% WATER 250 ML IV PRN (05:15)
[2019-06-19 05:45] LABS: PLATELET ESTIMATE SLIGHTLY DECREASED
[2019-06-19] MEDS ORDERED: PIPERACILLIN/TAZOBACTAM 3.375 G in DEXT 5% WATER 100 ML IV SCH (06:15)
[2019-06-19] MEDS ORDERED: VASOPRESSIN 10 UNIT in SODIUM CHLORIDE 0.9% 99.5 ML IV PRN ×2 (07:00→07:30)
[2019-06-19 09:20] LABS: BG BASE EXCESS -1.8 mmol/L (-2.0-2.0); BG CARBOXYHEMOGLOBIN 0.6 % (0.5-1.5); BG DEOXYHEMOGLOBIN 6.2 % (0.0-5.0); BG FRACTION INSPIRED OXYGEN 100; BG HCO3 ACT 20.7 mmol/L (22.0-26.0); BG METHEMOGLOBIN 0.3 % (0.0-1.5); BG OXYGEN SATURATION 93.7 % (92.0-98.5); BG OXYHEMOGLOBIN 92.9 % (94.0-97.0); BG PCO2 29.2 mmHg (35.0-45.0); BG PH 7.469 (7.350-7.450); BG PO2 66.7 mmHg (75.0-100.0); BG SAMPLE SITE RIGHT BRACHIAL; BG TIDAL VOLUME(mL) 500 mL; BG TOTAL HEMOGLOBIN 13.5 g/dL (12.0-18.0); BG VENT MODE VENT - A/C; BG VENT RATE 18 set
[2019-06-19] MEDS ORDERED: SODIUM CHLORIDE 0.9% 1,000 ML IV SCH (09:30)
[2019-06-19] MEDS ORDERED: POTASSIUM CHLORIDE INJ 40 MEQ in DEXT 5% WATER 250 ML IV ONE (09:30)
[2019-06-19] MEDS ORDERED: LORAZEPAM 2MG/ML CPJ IV PRN (09:45)
[2019-06-19] MEDS ORDERED: MORPHINE SULFATE 2 MG/ML CPJ (NOT FOR IM USE) IV PRN (09:45)
[2019-06-19] MEDS ORDERED: MORPHINE SULFATE 250 MG in DEXT 5% WATER 240 ML IV PRN ×4 (10:30)
[2019-06-19 12:15] VITALS: BP 0/0
== END 2019-06-19 14:50 | disposition expired ==
LOC: ER 11:18 → EDBEDREQSVC 13:33 → EDBEDREQTM 14:38 → EDBEDREQ 14:38 → ENRESERV 16:09 → CANRESERV 16:09 → CANBEDREQ 06-19 13:31 → ER 06-19 14:50
DX: A41.9 Sepsis, unspecified organism (principal); R65.21 Severe sepsis with septic shock; R57.0 Cardiogenic shock; J18.9 Pneumonia, unspecified organism; J96.00 Acute respiratory failure, unspecified whether with hypoxia or hypercapnia; E11.649 Type 2 diabetes mellitus with hypoglycemia without coma; G93.41 Metabolic encephalopathy; I50.23 Acute on chronic systolic (congestive) heart failure; I42.9 Cardiomyopathy, unspecified; I34.0 Nonrheumatic mitral (valve) insufficiency; R74.0 Nonspecific elevation of levels of transaminase and lactic acid dehydrogenase [LDH]; E87.1 Hypo-osmolality and hyponatremia; E87.8 Other disorders of electrolyte and fluid balance, not elsewhere classified; E43 Unspecified severe protein-calorie malnutrition; D72.819 Decreased white blood cell count, unspecified; J44.9 Chronic obstructive pulmonary disease, unspecified; J90 Pleural effusion, not elsewhere classified; F17.210 Nicotine dependence, cigarettes, uncomplicated; F14.10 Cocaine abuse, uncomplicated; F12.10 Cannabis abuse, uncomplicated; Z03.818 Encounter for observation for suspected exposure to other biological agents ruled out; Z79.899 Other long term (current) drug therapy; Z79.82 Long term (current) use of aspirin; Z68.34 Body mass index [BMI] 34.0-34.9, adult
CPT/HCPCS: 31500; 36415; 36556; 36600; 71045; 80053; 80305; 80320; 81003; 82140; 82375; 82805; 82962; 83605; 84145; 84484; 85025; 85610; 87040; 87086; 87804; 93005; 94002; 99291; J0330; J0461; J1250; J1940; J2060; J2250; J2270; J2370; J2543; J3010; J3370; J3490; J7030; J7050; J7060; Z7610; 99285; G0480